=== PATIENT | female | born 1945 | race Caucasian/White ===

== ENCOUNTER 2021-09-20 10:00 | Outpatient (RCR) | payer MEDICARE, BC, SELFPAY | END 2021-11-14 16:18 | disposition home or self-care (01) | PROVIDERS: PCP Internal Medicine; Visit Provider Orthopaedic Surgery Sports Medicine | DX: M54.2 Cervicalgia (principal); R51.9 Headache, unspecified; Z51.89 Encounter for other specified aftercare; M70.71 Other bursitis of hip, right hip | CPT/HCPCS: 97110; 97140; 97161 ==

== ENCOUNTER 2021-11-22 15:15 | Outpatient (RCR) | payer MEDICARE, BC, SELFPAY ==
--- NOTE | 2021-11-14 17:10 | PT.OPE ---
PT [place] [facility] Start: 11/14/21 16:02 Freq: Status: Active Protocol: Document 11/14/21 17:05 CJT (Rec: 11/14/21 17:09 CJT [id number]) E-signed By aJk Mihcaud PT Physical Therapy Outpatient Evaluation Insurance Information Recert Due Date 01/09/22 Insurance Name Medicare B,Blue Cross/Blue [employer] Medical Diagnosis M70.61 - trochanteric bursitis , R hip M76.891 - other specified enthesopathies of R lower limb , excluding foot Treating Diagnosis M25.511 - R hip pain Referring Sahil Kimball MD Subjective Subjective Pt reports hip pain ongoing for many years now. Has pinpoint tenderness in lateral R hip that is made worse with getting up from the ground. Pt enjoys working in her yard and is now having trouble due to pain in her hip. Laying on R side makes pain worse as well. Pain is also located behind greater trochanter. Does have history of issues with her low back and isn't sure if this is related to her current pain. Rates pain as 5 /10 on average in R hip. Pain Comments 5/10 Date of Last Physician Visit 11/09/21 Current Work Status Retired Precautions Therapy Limitations/Systems Review Not Limited Objective Range of Motion R Hip ROM Flexion - 120 IR/ER - 37/11 Extension - 5 L Hip ROM Flexion - 120 IR/ER - 30/20 Extension - 5 R knee ROM - 0-125 L knee ROM - 0-125 Strength R Hip Strength Flexion - 4 Abduction - Adduction - 5 IR - 5 ER - 4 Extension - L Hip Strength Flexion - 4 Adduction - 5 IR - 5 ER - 5 Extension - DNT R knee Extension - 5 R Knee Flexion - 4+ L knee Extension - 5 L knee Flexion - 5 Palpation Pain with palpation to R glute med, glute min, piriformis, and ITB Other/Pertinent Objective FADIR positive on R for posterior hip pain JAYDEN positive B for anterior hip tightness Assessment Assessment/Impression Pt is a 76 year old female who presents with new complaint of R hip pain. Pain has been ongoing for many years now but pt is struggling to work in her yard and garden due to the pain. Pain is made worse when going from the ground to standing, sitting to standing, and laying on her R side. Pt rolls from side to side frequently during the night due to pain. Testing reveals deficits in R>L hip strength and ROM. Pt is also very tender with direct palpation to hip abductors and ERs, less tenderness noted over greater trochanter. Skilled PT services are medically necessary to address deficits and return patient to highest level of function. Recommend physical therapy sessions 2/ week for 6 weeks. Pt agrees with this plan. Printout of HEP was given for I completion and pt gives verbal understanding of each exercise . Primary Functional Limitations floor to stand transfers, sit to stand transfers, laying on R side, prolonged sitting Plan of Care Rehabilitation Potential Good Physical Therapy Goals STG - To be completed in 2-3 weeks: 1. Pt to report reduction in hip pain by factor of 2 so that she may lay on her R side while in bed and rest with manageable pain. 2. Pt will demo 5/5 MMT for all motions of B hips to provide better support to pelvis and lumbar spine. LTG - To be completed in 8 weeks: 1. Pt to be I with HEP so that they may I manage progression of symptoms. 2. Pt will report ability to sleep while laying on R side without waking due to hip pain so that she may wake well rested with reduced mental fatigue. 3. Pt will report ability to sit for 60+ minutes without onset of R hip pain so that she may sit at dinner table with family and friends. 4. Pt will report ability to kneel down and return to garden with max 2/10 pain in hip so that she may continue to work in her garden with manageable pain. Treatment Plan/Direct Interventions Electrical Stimulation,Heat, Joint Mobilization,Manual Therapy,Self-Care/Home Management,Therapeutic Exercises,Ultrasound Frequency/Duration 2/week for 6 weeks Patient Will Be Discharged From Therapy Completion of LTG(s),Skills Plateau,Independent w/HEP, Independently Progressing Evaluation Billing Untimed Code Treatment Minutes 44 PT Eval No Charge No Complexity Low Certification Information Initial Certification Date 11/14/21 Ending Certification Date 12/26/21 Provider Signature Shows Agreement With POC & Medical Necessity Physician Comment/Change Comment or Changes Physician NPI Number #
== END 2022-01-16 12:42 | disposition home or self-care (01) ==
PROVIDERS: PCP Internal Medicine; Visit Provider Orthopaedic Surgery Sports Medicine
DX: M70.61 Trochanteric bursitis, right hip (principal); Z51.89 Encounter for other specified aftercare
CPT/HCPCS: 97035; 97110; 97140; 97161

== ENCOUNTER 2022-02-08 13:06 | Outpatient (CLI) | payer MEDICARE, BC, SELFPAY ==
--- NOTE | 2022-02-08 13:40 | CRLHL7_ITS ---
For Patients: As a result of the Cures Act, medical imaging exams and procedure reports are released immediately into your electronic medical record. You may view this report before your referring provider. If you have questions, please contact your health care provider. BILATERAL SCREENING MAMMOGRAM WITH COMPUTER-AIDED DETECTION AND TOMOSYNTHESIS TECHNIQUE: CC and MLO views were obtained. These mammographic images have been obtained using full-field digital technique. These mammographic images were interpreted with the benefit of computer-aided detection. Breast Tomosynthesis was used in this interpretation. COMPARISON FILM: 10/26/20, 09/09/19, 06/22/18. FINDINGS: There are scattered areas of fibroglandular density IMPRESSION: There is no radiographic evidence for malignancy. ASSESSMENT: BI-RADS Category 2: Benign RECOMMENDATION: Routine screening mammogram in 1 year. A lay language report of this examination will be provided to the patient. Loco Sanchez M.D. Diagnostic Radiologist [email or web address] Transcribed: 1:27 p.[email or web address] elizabeth/Dictated by: Loco Sanchez MD @ 02/11/2022 12:02:00 PM (Electronically Signed)
== END 2022-02-08 13:07 | disposition home or self-care (01) ==
LOC: MAMMO 13:07
PROVIDERS: PCP Internal Medicine; Visit Provider Internal Medicine
DX: Z12.31 Encounter for screening mammogram for malignant neoplasm of breast (principal)
CPT/HCPCS: 77063; 77067

== ENCOUNTER 2022-05-26 16:21 | Emergency (ER) | payer MEDICARE, BC, SELFPAY ==
[2022-05-26] VITALS (7 sets, daily range): BP systolic 143–160; BP diastolic 82–97; PULSE 72–87; RESP 18; TEMP 36.6; O2SAT 95–97; BMI 27.8
--- NOTE | 2022-05-26 16:54 | CRLHL7_ITS ---
For Patients: As a result of the Century Cures Act, medical imaging exams and procedure reports are released immediately into your electronic medical record. You may view this report before your referring provider. If you have questions, please contact your health care provider. HISTORY: Chest pain. COMPARISON: None available FINDINGS: A portable erect AP view of the chest was obtained at 1702 hours. The lungs are clear. No focal or diffuse infiltrates are present. The heart is top-normal in size. The mediastinum is normal in appearance. The osseous structures are normal in appearance for the patient`s age. IMPRESSION: Normal portable chest single view. Dictated by Sumeet Marmolejo MD @ 05/26/2022 5:43:38 PM (Electronically Signed)
--- NOTE | 2022-05-26 16:57 | ED_ITS ---
HPI - General Adult General Chief complaint: Nausea/Vomiting Stated complaint: Vomiting, sweating, heaviness in chest since AM Time Seen by Provider: 05/26/22 16:48 History of Present Illness HPI narrative: Patient is a 69 year white female who felt well going to [employer] to eat, ate some food and about 5-10 minutes later felt hot sweaty little bit nauseated vomited, and since then she has had some mild chest tightness, as well as some fatigue and nausea. She does not have any radiation of pain to her neck arm jaw, she was little diaphoretic and felt a little chilled as well. Her ate similar food in felt well. She has less stomach trouble now, but was concerned about chest tightness. She has not had any coronary artery disease, but there is family history of heart disease in her family. She has history of hypothyroidism as well as arthritis. Related Data Home Medications Medication Instructions Recorded Confirmed acetaminophen 325 mg tablet 325 - 650 mg PO DAILY PRN 09/03/21 03/27/22 (Tylenol) cetirizine 10 mg tablet 5 mg PO QDAY PRN 09/03/21 03/27/22 levothyroxine 75 mcg capsule 75 mcg PO QDAY 09/03/21 03/27/22 meclizine 25 mg chewable tablet 25 mg PO QDAY PRN 09/03/21 03/27/22 multivitamin 1 tab PO QAM 09/03/21 03/27/22 zinc 50 mg tablet 50 mg PO QDAY 09/03/21 03/27/22 cholecalciferol (vitamin D3) 25 25 mcg PO QDAY 11/09/21 03/27/22 mcg (1,000 unit) tablet (Vitamin D3) Allergies Allergy/AdvReac Type Severity Reaction Status Date / Time No Known Drug Allergies Allergy Verified 05/26/22 16:40 Review of Systems Status of ROS: Reports: 6 or more systems reviewed and unremarkable except as noted in History and below [facility] Medical History Cervical disc disease ?M50.90 - Cervical disc disorder, unspecified, unspecified cervical region (ICD-10) Chronic low back pain ?M54.50 - Low back pain, unspecified (ICD-10) ?G89.29 - Other chronic pain (ICD-10) Osteoarthritis ?M19.90 - Unspecified osteoarthritis, unspecified site (ICD-10) Right bundle branch block (~04/2010) ?I45.10 - Unspecified right bundle-branch block (ICD-10) Surgical History H/O hernia repair (~1979) ?Z98.890 - Other specified postprocedural states (ICD-10) ?Z87.19 - Personal history of other diseases of the digestive system (ICD-10) History of arthroplasty of finger of right hand (10/23/17) ?Z96.691 - Finger-joint replacement of right hand (ICD-10) Family History Mother Heart problem Arthritis Social History Smoking Status: Never smoker Do you use any of these nicotine containing products: None Second hand tobacco smoke exposure: No Exam Narrative: Exam Narrative: Objective: Vital signs are unremarkable and slightly hypertensive Alert or x3, noncyanotic, no apparent distress HEENT shows no facial asymmetry mouth is well hydrated neck is supple chest is clear no rales or wheezing Heart rhythm regular heart murmur Abdomen benign soft nontender Extremities are no edema neurologic nonfocal good peripheral perfusion noted Skin is warm and dry Const: Vital Signs, click to edit/add: Vital Signs - 24 hr 05/26/22 16:40 05/26/22 18:21 Temperature 98 F Pulse Rate 76 Pulse Rate [Pulse Oximeter] 87 Respiratory Rate 18 Blood Pressure [Ri ght Upper Arm] 160/82 H Pulse Oximetry 96 95 Oxygen Delivery Me thod Room Air Course Vital Signs Vital signs: Initial Vital Signs Temperature 98 F 05/26/22 16:40 Temperature Source Oral 05/26/22 16:40 Pulse Rate 87 05/26/22 16:40 Respiratory Rate 18 05/26/22 16:40 Blood Pressure 160/82 H 05/26/22 16:40 Blood Pressure Mean 108 05/26/22 16:40 Pulse Oximetry 96 05/26/22 16:40 Oxygen Delivery Method Room Air 05/26/22 16:40 Vital Signs Temperature 98 F 05/26/22 16:40 Pulse Rate 87 05/26/22 16:40 Respiratory Rate 18 05/26/22 16:40 Blood Pressure 160/82 H 05/26/22 16:40 Pulse Oximetry 96 05/26/22 16:40 Oxygen Delivery Method Room Air 05/26/22 16:40 Temperature 98 F 05/26/22 16:40 Pulse Rate 76 05/26/22 18:21 Respiratory Rate 18 05/26/22 16:40 Blood Pressure 160/82 H 05/26/22 16:40 Pulse Oximetry 95 05/26/22 18:21 Oxygen Delivery Method Room Air 05/26/22 16:40 Medical Decision Making MDM Narrative Medical decision making narrative: Patient is a 77-year-old female without history of heart disease who does apparently have a right bundle wilber block by reviewing her chart. She felt after eating about 5-10 minutes some nausea vomiting chills slight weakness. Since then she has had some chest tightness. She is concerned about this. And was coming to the emergency department. Her symptoms were at 7:30 a.m. this morning. She is here now at about 5:00 p.m.. I think at this point would be appropriate to get an EKG, cardiac monitoring, give her aspirin, IV fluid, 0.5 of Ativan IV to see if it will help her nausea. Insert I think ruling out acute coronary syndrome appropriate as well as she may have a component of mild anxiety from the issue this morning. Disposition pending findings above, will check labs including point of care troponin and other studies. Disposition pending their findings Addendum: The patient's EKG shows right bundle branch block consistent with prior EKG she has some artifact present 2 I do not see any obvious ST elevation or depression T-waves appear to be normal. She has a chest x-ray that looks unremarkable by my read. Her laboratory studies show negative troponin. Her white count and hemoglobin are normal, ER profile is unremarkable, CRP is negative, proBNP is normal, SARs/influenza/RSV are negative. She feels markedly better after the fluids and the Ativan she has no further nausea. I think at this point her only complaint is she feels fatigued from today's activities I think she would have had an abnormal troponin sinc she had onset of symptoms at 7:30 a.m. this morning and had her labs done about 5. I think I would recommend light activity, follow-up Dr. Cornejo in this week. Return to ED sooner problems or concerns recommend light activity. She and her are comfortable plan will follow up as directed thanks , but also recommend she take an aspirin daily Lab Data Labs: Lab Results 05/26/22 05/26/22 05/26/22 Range/Units 16:55 17:15 17:40 WBC 9.38 (4.50-11.00) K/uL RBC 5.15 (4.00-5.20) m/uL Hgb 15.0 (12.0-16.0) gm/dL Hct 45.1 (33.0-51.0) % MCV 88 (80-100) fL MCH 29 (26-34) pg MCHC 33 (32-36) gm/dL RDW Coeff of Dominique 12.8 (11.5-15.5) % Plt Count 284 (140-440) K/uL Neut % (Auto) 72.8 H (42.0-72.0) % Lymph % (Auto) 20.4 (20-44) % Ellis % (Auto) 5.9 (0.0-11.0) % Eos % (Auto) 0.4 (0.0-7.0) % Baso % (Auto) 0.2 (0.0-3.0) % Neut # (Auto) 6.80 (1.7-7.0) K/uL Lymph # (Auto) 1.91 (0.90-2.90) K/uL Ellis # (Auto) 0.60 (0.00-0.90) K/UL Eos # (Auto) 0.04 (0.00-0.50) K/uL Baso # (Auto) 0.02 (0.00-0.30) K/uL Sodium 139 (135-149) mmol/L Potassium 3.9 (3.6-5.1) mmol/L Chloride 106 (96-114) mmol/L Carbon Dioxide 26 (20-32) mmol/L BUN 21 (7-30) mg/dL Creatinine 0.7 (0.5-1.5) mg/dL Estimated Creat Clear 40.04 Estimated GFR 88 ml/min Glucose 91 (60-115) mg/dL Calcium 9.0 (8.4-10.6) mg/dL Total Bilirubin 0.5 (0.1-1.5) mg/dL Direct Bilirubin 0.3 (0.0-0.5) mg/dL AST 28 (12-35) U/L ALT 27 (4-35) U/L Alkaline Phosphatase 95 (40-150) U/L C-Reactive Protein 0.9 (0.5-1.0) mg/dL NT-Pro-B Natriuret Pep 289 pg/mL Total Protein 7.3 (6.0-8.3) g/dL Albumin 4.2 (3.3-5.0) g/dL Amylase 60 (18-89) U/L Lipase 82 (23-300) U/L SARS-CoV-2 (PCR) Negative SARS-CoV-2 (Negative) Influenza Type A (PCR) Negative PCR FLU A (Negative) Influenza Type B (PCR) Negative PCR FLU B (Negative) RSV (PCR) Negative PCR RSV (Negative) POC Troponin I 0.00 L (0.01-0.04) ng/ml Discharge Plan Discharge Clinical Impression: Chest pain, Vomiting Patient Disposition: Home w/ Parent or Adult Condition: Improved Additional Instructions: Light activity, rest, Tylenol as needed, continue same medications at home, recheck with Dr. Cornejo in the next few days for follow-up., aspirin daily 325 mg. Return to ED sooner problems concerns concerns difficulty. Activity Level: Light activity Discharge Diet: Heart Healthy (2 gm sodium, low fat) Prescriptions: No Action levothyroxine 75 mcg capsule 75 mcg PO QDAY cetirizine 10 mg tablet 5 mg PO QDAY PRN meclizine 25 mg tablet,chewable 25 mg PO QDAY PRN acetaminophen [Tylenol] 325 mg tablet 325 - 650 mg PO DAILY PRN multivitamin Tablet 1 tab PO QAM zinc 50 mg tablet 50 mg PO QDAY cholecalciferol (vitamin D3) [Vitamin D3] 25 mcg (1,000 unit) tablet 25 mcg PO QDAY Follow Up/Referrals: Karuna Farfan MD [Primary Care Provider] - Stand Alone Forms: [facility] Info Instructions
[2022-05-26 17:39] LABS: Chloride* 106 mmol/L (96-114); Potassium* 3.9 mmol/L (3.6-5.1); Sodium* 139 mmol/L (135-149)
[2022-05-26 17:40] LABS: Albumin* 4.2 g/dL (3.3-5.0)
[2022-05-26 17:42] LABS: Amylase* 60 U/L (18-89); Blood Urea Nitrogen* 21 mg/dL (7-30); Carbon Dioxide* 26 mmol/L (20-32); Creatinine* 0.7 mg/dL (0.5-1.5); Est. Creatinine Clearance* 40.04; Estimated Glomerular Filt Rate 88 ml/min; Glucose* 91 mg/dL (60-115)
[2022-05-26 17:43] LABS: Bilirubin Direct* 0.3 mg/dL (0.0-0.5); Bilirubin Total* 0.5 mg/dL (0.1-1.5)
[2022-05-26 17:44] LABS: Alanine Aminotransferase* 27 U/L (4-35); Alkaline Phosphatase* 95 U/L (40-150); Aspartate Amino Transferase* 28 U/L (12-35); Lipase* 82 U/L (23-300); Total Protein* 7.3 g/dL (6.0-8.3)
[2022-05-26 17:46] LABS: C Reactive Protein* 0.9 mg/dL (0.5-1.0)
[2022-05-26 17:53] LABS: NT Pro B Type NatriureticPept* 289 pg/mL
[2022-05-26] MEDS: LORazepam 2 MG/ML inj 0.5 MG IVP (18:01)
[2022-05-26] MEDS: ASPIRIN 81 MG TAB.CHEW 324 MG PO (18:01)
[2022-05-26] MEDS: 0.9 % SODIUM CHLORIDE 500 ML 500 ML IV (18:02)
[2022-05-26 18:25] LABS: PCR FLU A Negative PCR FLU A (Negative); PCR FLU B Negative PCR FLU B (Negative); PCR RSV Negative PCR RSV (Negative)
[2022-05-26 18:28] LABS: Basophils Absolute Auto 0.02 K/uL (0.00-0.30); Basophils Percent Auto 0.2 % (0.0-3.0); Eosinophils Absolute Auto 0.04 K/uL (0.00-0.50); Eosinophils Percent Auto 0.4 % (0.0-7.0); Hematocrit 45.1 % (33.0-51.0); Immature Granulocytes Abs Auto 0.03 K/uL (0.00-0.30); Immature Granulocytes Pct Auto 0.3 %; Lymphocytes Absolute Auto 1.91 K/uL (0.90-2.90); Lymphocytes Percent Auto 20.4 % (20-44); Mean Corpuscular HGB Conc 33 gm/dL (32-36); Mean Corpuscular Hemoglobin 29 pg (26-34); Mean Corpuscular Volume 88 fL (80-100); Monocytes Percent Auto 5.9 % (0.0-11.0); Neutrophils Percent Auto 72.8 % (42.0-72.0); Platelet Count* 284 K/uL (140-440); RDW Coefficient of Variation % 12.8 % (11.5-15.5); Red Blood Count 5.15 m/uL (4.00-5.20); White Blood Count* 9.38 K/uL (4.50-11.00)
[2022-05-26 18:31] LABS: SARS PCR* Negative SARS-CoV-2 (Negative)
[2022-05-26 18:32] LABS: Slide Review Reflex No
== END 2022-05-26 19:11 | disposition home or self-care (01) ==
PROVIDERS: Emergency Provider Family Medicine; PCP Internal Medicine
DX: R07.9 Chest pain, unspecified (principal); R11.10 Vomiting, unspecified
CPT/HCPCS: 36415; 71045; 80048; 80076; 82150; 83690; 83880; 84484; 85025; 86140; 87502; 87634; 87635; 93005; 94761; 96374; 99284; 99285; A9270; J2060; J7120

== ENCOUNTER 2022-06-03 09:21 | Outpatient (CLI) | payer MEDICARE, BC, SELFPAY | END 2022-06-03 09:22 | disposition home or self-care (01) | PROVIDERS: PCP Internal Medicine; Visit Provider Internal Medicine | DX: E03.9 Hypothyroidism, unspecified (principal); R53.82 Chronic fatigue, unspecified | CPT/HCPCS: 84443 ==

== ENCOUNTER 2022-10-04 08:40 | Outpatient (CLI) | payer MEDICARE, BC, SELFPAY | END 2022-10-04 08:41 | disposition home or self-care (01) | LOC: NFLDREF 10-05 09:59 | PROVIDERS: PCP Internal Medicine; Referring Provider Internal Medicine; Visit Provider Internal Medicine | DX: E03.9 Hypothyroidism, unspecified (principal) | CPT/HCPCS: 84443 ==

== ENCOUNTER 2023-10-09 07:27 | Outpatient (CLI) | payer MEDICARE, BC, SELFPAY | END 2023-10-09 07:28 | disposition home or self-care (01) | LOC: NFLDREF 10-10 10:33 | PROVIDERS: PCP Internal Medicine; Referring Provider Internal Medicine; Visit Provider Internal Medicine | DX: E03.9 Hypothyroidism, unspecified (principal) | CPT/HCPCS: 84443 ==

== ENCOUNTER 2024-03-16 12:35 | Outpatient (CLI) | payer MEDICARE, BC, SELFPAY ==
--- NOTE | 2024-03-16 13:00 | CRLHL7_ITS ---
For Patients: As a result of the Century Cures Act, medical imaging exams and procedure reports are released immediately into your electronic medical record. You may view this report before your referring provider. If you have questions, please contact your health care provider. BILATERAL SCREENING MAMMOGRAM WITH COMPUTER-AIDED DETECTION AND TOMOSYNTHESIS TECHNIQUE: CC and MLO views were obtained. These mammographic images have been obtained using full-field digital technique. These mammographic images were interpreted with the benefit of computer-aided detection. Breast Tomosynthesis was used in this interpretation. COMPARISON FILM: 02/08/22, 10/26/20, 09/09/19. FINDINGS: There are scattered areas of fibroglandular density. IMPRESSION: There is no radiographic evidence for malignancy. ASSESSMENT: BI-RADS Category 2: Benign RECOMMENDATION: Routine screening mammogram in 1 year. A lay language report of this examination will be provided to the patient. Aram Puenet M.D. Diagnostic/Nuclear Medicine Radiologist [email or web address] MARIE/syd SP/Dictated by: Aram Puente MD @ 03/18/2024 9:15:00 AM (Electronically Signed)
== END 2024-03-16 12:36 | disposition home or self-care (01) ==
LOC: MAMMO 12:36
PROVIDERS: PCP Internal Medicine; Visit Provider Internal Medicine
DX: Z12.31 Encounter for screening mammogram for malignant neoplasm of breast (principal)
CPT/HCPCS: 77063; 77067

== ENCOUNTER 2024-05-05 15:05 | Outpatient (CLI) | payer MEDICARE, BC, SELFPAY ==
--- NOTE | 2024-05-05 15:30 | CRLHL7_ITS ---
For Patients: As a result of the Century Cures Act, medical imaging exams and procedure reports are released immediately into your electronic medical record. You may view this report before your referring provider. If you have questions, please contact your health care provider. INDICATION: Low back pain. COMPARISON: 10/22/2019. Technique Sagittal T1, T2, and STIR sequences. Axial T1 and T2 weighted sequences. FINDINGS: Grade 1 anterolisthesis of L4 on L5 and L5 on S1 measures approximately 4-5 mm. Otherwise, normal alignment. No fractures. No vertebral body loss of height. No ligamentous injury. No suspicious osseous lesions. Normal conus terminates at L1. T12-L1 L1-2: Disc degeneration posterior disc bulging. No spinal canal or neural foraminal narrowing. L2-3: Disc degeneration and posterior disc bulge. No narrowing of spinal canal. No neural foraminal narrowing. L3-4: Posterior disc bulge. No spinal canal neural foraminal narrowing. L4-5: Grade 1 anterolisthesis. Unroofed posterior disc bulge. Moderate narrowing of spinal canal. No neural foraminal narrowing. Mild facet arthropathy. L5-S1: Grade 1 anterolisthesis. Posterior disc bulge. No narrowing of spinal canal. Oblique orientation bilateral foramina. No narrowing. Moderate facet arthropathy. Normal visualized SI joints. IMPRESSION: 1. Grade 1 anterolisthesis of L4 on L5 and L5 on S1. Otherwise normal alignment. No fractures 2. Lumbar spondylosis 3. At L4-5, posterior disc bulge. Moderate narrowing of the spinal canal. 4. No spinal canal or neural foraminal narrowing at the remaining levels Dictated by Ta Koroma MD @ 05/06/2024 2:08:48 PM (Electronically Signed)
== END 2024-05-05 15:06 | disposition home or self-care (01) ==
LOC: MRI 15:06
PROVIDERS: PCP Internal Medicine; Visit Provider Family Medicine
DX: M54.41 Lumbago with sciatica, right side (principal); M47.896 Other spondylosis, lumbar region; M51.26 Other intervertebral disc displacement, lumbar region; M43.16 Spondylolisthesis, lumbar region; M54.16 Radiculopathy, lumbar region
CPT/HCPCS: 72148

== ENCOUNTER 2024-05-18 08:30 | Emergency (ER) | payer MEDICARE, BC, SELFPAY ==
[2024-05-18] VITALS (22 sets, daily range): BP systolic 89–113; BP diastolic 64–75; PULSE 63–135; RESP 7–77; TEMP 36; O2SAT 94–97; BMI 27.8
--- OUTSIDE RECORDS SUMMARY | 2024-05-18 08:32 | XMS_ITS | Clinical Summary ---
Author Organization [facility] Address [address] [place] [id number] Care Team Providers Care Tack Driller Name Role Phone Randall Koo MD Primary Care Provider + [phone] Allergies No known active allergies Encounters Date Type Department Care Team Description 05/10/2024 Telephone [facility] [address] [place] [address] Brenton Skinner MD Appointment Request 05/10/2024 Transcribe Orders [facility] [address] [place] [address] Kole Foss MD 2024 Transcribe Orders [facility] [address] [place] [address] Kole Foss MD from Last 3 Months Social History Tobacco Use Types Packs/Day Years Used Date Smoking Tobacco: Never Assessed Comments Unknown Sex and Gender Information Value Date Recorded Sex Assigned at Not on file Legal Sex Female 5:49 AM [employer] Gender Identity Not on file Sexual Orientation Not on file Obstetrics History Last Filed Vital Signs Vital Sign Reading Time Taken Comments Blood Pressure 97/56 03/09/2008 8:20 AM [employer] Pulse 55 03/09/2008 8:20 AM [employer] Temperature - - Respiratory Rate - - Oxygen Saturation 99% 03/09/2008 8:20 AM [employer] Inhaled Oxygen Concentration - - Weight - - Height - - Body Mass Index - - Plan of Treatment Health Maintenance Due Date Last Done Comments Tdap 05/10/1956 Depression screening for age 12+ 1956 BMI (ht and wt on same day) for age 18+ 1962 Tetanus booster 1964 Pneumococcal series for age 50+ (1 of 1 - PCV) 1994 Zoster (shingles) series for age 50+ (1 of 2) 1994 DEXA/DXA scan for age 65+ 2009 Medicare Wellness for age 65+ 2009 RSV vaccine for adults or (1 - 1-dose 75+ series) 05/10/2019 Influenza Vaccine (#1) 2023 COVID-19 vaccine series (2023- season) 2024 12/03/2023, 12/14/2020, 04/29/2020, Additional history exists Insurance MEDICARE PART B HB ONLY BLUE CROSS [place] BLUE HB ONLY MEDICARE PB ONLY Care Teams Tack Driller Relationship Specialty Start Date End Date Randall Koo MD PCP - General 12/24/07
[2024-05-18 08:55] LABS: Troponin, Point-of-Care* 0.02 ng/ml (0.01-0.04)
--- NOTE | 2024-05-18 08:56 | ED.ARRPALP ---
HPI - Arrhythmia/Palpitations General Date Seen: 05/18/24 Chief Complaint: Arrhythmia/Palpitations Stated Complaint: Arrhythmia Time Seen by Provider: 05/18/24 08:37 Source: patient Mode of arrival: ambulatory Limitations: no limitations History of Present Illness HPI narrative: Patient is an 79-year-old female with history of hypothyroidism presenting to the emergency department for new onset AFib. She states she was going to get a injection in her back when the noticed her heart rate seemed to be fast. EKG was done showing she was in new onset AFib. Her provider then spoke to me and sent her to our emergency department. She is not on a blood thinner and has never had AFib before but she does state all of her sisters have AFib. Started noticing some chest discomfort yesterday while at rest that has persisted into today. She states she has had the same symptoms multiple times before but usually they are with exertion. She states lay typically go way when she is back at rest. Denies any lightheadedness. Does have chronic intermittent vertigo but has not noticed any worsening of the symptoms. Denies fevers, chills, shortness of breath, abdominal pain, nausea, vomiting. States she is feeling very anxious about getting this back injection since she was told she would need it. Other than that does not feel any different than normally. Has not noticed her heart racing. Related Data Home Medications ?Medication ?Instructions ?Recorded ?Confirmed acetaminophen 325 mg tablet 325 - 650 mg PO DAILY PRN 09/03/21 04/26/24 (Tylenol) cetirizine 10 mg tablet 5 mg PO QDAY PRN 09/03/21 04/26/24 multivitamin 1 tab PO QAM 09/03/21 04/26/24 omeprazole 20 mg capsule,delayed 20 mg PO QAM PRN 07/18/22 04/26/24 release latanoprost 0.005 % eye drops 1 drp ophthalmic (eye) QPM 10/23/22 04/26/24 ibuprofen 200 mg capsule 200 mg PO Q6H PRN 04/22/23 04/26/24 Previous Rx's ?Medication ?Instructions ?Recorded levothyroxine 75 mcg tablet 75 mcg PO DAILY #90 tabs 10/13/23 diazepam 5 mg tablet (Valium) 5 mg PO ONCE PRN anxiety #2 tabs 03/20/25 apixaban 5 mg tablet 5 mg PO BID #60 tabs 05/18/24 diltiazem HCl 30 mg tablet 30 mg PO TID 2 weeks #42 tabs 05/18/24 Allergies Allergy/AdvReac Type Severity Reaction Status Date / Time cortisone Allergy Intermediate Redness of Uncoded 04/26/24 14:50 Skin seasonal Allergy Mild Congested Uncoded 04/26/24 14:50 Review of Systems Status of ROS: Reports: 10 or more systems reviewed and unremarkable except as noted in History and below PFSH PFS Surgical History History of inguinal hernia repair (1982) ?Z98.890 - Other specified postprocedural states (ICD-10) ?Z87.19 - Personal history of other diseases of the digestive system (ICD-10) History of arthroplasty of finger of right hand (10/23/17) ?Z96.691 - Finger-joint replacement of right hand (ICD-10) Family History Mother Heart problem Arthritis Social History What is your current living situation?: I presently have a place to live Problems where you live: no known problems and declined to answer In the past 12 months, utilities in danger of being shut off: no In past 12 months, lack of transportation kept you from medical appts, meetings, work, or getting things needed for daily living: no In the past 12 mos, have been you worried that your food would run out before you had money to buy more?: never true In the past 12 mos, the food you bought just didn't last and you didn't have money to buy more?: never true Smoking Status: Never smoker Do you use any of these nicotine containing products: None Second hand tobacco smoke exposure: No How often do you have a drink containing alcohol: never AUDIT-C Alcohol total score: 0 Non-prescribed substance use: denies use How often does anyone, including family, friends and others, physically hurt you: never How often does anyone, including family, friends and others, insult or talk down to you: never How often does anyone, including family, friends and others, threaten you with harm: never How often does anyone, including family, friends and others, scream or curse at you: never Exam Narrative: Exam Narrative: Const: Well-nourished, Well-developed, in no distress Eyes: PERRL, no conjunctival injection, and symmetrical lids HENT: Atraumatic external nose and ears. Moist mucous membranes. Neck: Symmetric, trachea midline, No thyromegaly. CVS: Irregular irregular rhythm, No murmurs or gallops. Peripheral pulses 2+ and equal in all extremities RESP: Unlabored respiratory effort. Clear to auscultation bilaterally. GI: Nontender/Nondistended, No rebound or guarding. MSK:Extremities w/o deformity, Normal Active ROM Skin: Warm, Dry. No rashes or lesions. Neuro: Normal Muscle tone, No focal neurological deficits. Psych: Awake, Alert, & Oriented x3. Appropriate mood and affect. Const: Vital Signs, click to edit/add: Vital Signs - 24 hr 05/18/24 08:38 05/18/24 08:39 05/18/24 08:39 Temperature 96.8 F L Pulse Rate Pulse Rate [Apical ] 135 H Respiratory Rate 16 16 14 Blood Pressure Blood Pressure [Ri ght Upper Arm] 113/67 Pulse Oximetry 95 96 Oxygen Delivery Me thod Room Air 05/18/24 08:43 05/18/24 08:44 05/18/24 08:45 Temperature Pulse Rate Pulse Rate [Apical ] Respiratory Rate 14 7 L 14 Blood Pressure Blood Pressure [Ri ght Upper Arm] Pulse Oximetry 96 94 95 Oxygen Delivery Me thod 05/18/24 09:00 05/18/24 09:01 05/18/24 09:02 Temperature Pulse Rate Pulse Rate [Apical ] Respiratory Rate 21 18 25 H Blood Pressure Blood Pressure [Ri ght Upper Arm] Pulse Oximetry 94 95 96 Oxygen Delivery Me thod 05/18/24 09:15 05/18/24 09:30 05/18/24 09:31 Temperature Pulse Rate 135 H 105 H 104 H Pulse Rate [Apical ] Respiratory Rate 17 18 22 Blood Pressure 104/75 Blood Pressure [Ri ght Upper Arm] Pulse Oximetry 95 94 97 Oxygen Delivery Me thod 05/18/24 09:31 05/18/24 09:31 05/18/24 09:31 Temperature Pulse Rate 104 H 104 H 104 H Pulse Rate [Apical ] Respiratory Rate 22 22 22 Blood Pressure 104/75 104/75 104/75 Blood Pressure [Ri ght Upper Arm] Pulse Oximetry 97 97 97 Oxygen Delivery Me thod 05/18/24 09:45 05/18/24 10:00 05/18/24 10:01 Temperature Pulse Rate 88 99 Pulse Rate [Apical ] Respiratory Rate 22 16 21 Blood Pressure 105/73 Blood Pressure [Ri ght Upper Arm] Pulse Oximetry 95 97 Oxygen Delivery Me thod 05/18/24 10:15 05/18/24 10:33 05/18/24 10:45 Temperature Pulse Rate 63 79 Pulse Rate [Apical ] Respiratory Rate 21 46 H 35 H Blood Pressure Blood Pressure [Ri ght Upper Arm] Pulse Oximetry 95 96 Oxygen Delivery Me thod 05/18/24 11:00 05/18/24 11:02 05/18/24 11:03 Temperature Pulse Rate 71 78 73 Pulse Rate [Apical ] Respiratory Rate 77 H 49 H 31 H Blood Pressure 89/69 L Blood Pressure [Ri ght Upper Arm] Pulse Oximetry 96 95 95 Oxygen Delivery Me thod 05/18/24 11:15 Temperature Pulse Rate 63 Pulse Rate [Apical ] Respiratory Rate 15 Blood Pressure Blood Pressure [Ri ght Upper Arm] Pulse Oximetry 96 Oxygen Delivery Me thod Course Vital Signs Vital signs: Initial Vital Signs Respiratory Rate 16 05/18/24 08:38 Pulse Oximetry 95 05/18/24 08:38 Vital Signs Respiratory Rate 16 05/18/24 08:38 Pulse Oximetry 95 05/18/24 08:38 Temperature 96.8 F L 05/18/24 08:39 Pulse Rate 63 05/18/24 11:15 Respiratory Rate 15 05/18/24 11:15 Blood Pressure 89/69 L 05/18/24 11:02 Pulse Oximetry 96 05/18/24 11:15 Oxygen Delivery Method Room Air 05/18/24 08:39 Medications Administered Medications: Discontinued Medications Generic Name Dose Route Start Last Admin Trade Name Freq PRN Reason Stop Dose Admin Diltiazem HCl 18 mg 05/18/24 09:44 05/18/24 09:57 Diltiazem 5 Mg/Ml Inj IVP 05/18/24 09:45 18 mg ONCE ONE Administration Sodium Chloride 1,000 mls @ 1,000 mls/hr 05/18/24 09:00 05/18/24 10:19 0.9 % Sodium Chloride 1000 Ml IV 05/18/24 09:59 Infused .Q1H ADITHYA Infusion Magnesium Oxide 400 mg 05/18/24 09:36 05/18/24 09:48 Magnesium Oxide 400 Mg Tablet PO 05/18/24 09:37 400 mg ONCE ONE Administration MDM - Arrhythmia/Palpitations MDM Narrative Medical decision making narrative: Patient is an 79-year-old female presenting for new onset AFib. Will check her TSH and T4 to see if her thyroid could be possibly causing his symptoms. Will also check magnesium and respirator electrolytes. EKG troponin COVID/flu/RSV all also ordered. A what seems like the AFib likely started last night when she started having the chest discomfort we cannot say for certain that it has been going on for less than 72 hours and she is not on a blood thinner. Due to this and the fact that she is otherwise stable I do believe it is in her best interest for us to try and treat this AFib with medication rather than a cardioversion. Lab work returned showing no concerning abnormalities. Her magnesium is very mildly low at 1.9. This is within normal limits but Cardiology usually recommends magnesium above 2.0. Due to this I will supplement her with magnesium. TSH within normal limits. Viral swabs are negative. Heart rate did come down some with the fluids but she was still having RVR so I ordered a dose of Cardizem 0.25 milligrams/kilogram for a total of 18 mg. After this her heart rate is sitting usually within the 60s to 70s and still in AFib. She was able to ambulate without issues and overall she is feeling well. We monitored the patient for an hour like this and heart rate did not change I do believe she is safe for discharge. I did speak to her primary care provider, Dr. Farfan, to get her opinion on outpatient management. The patient's [id number] score was 3. Her recommendations at this time is the Eliquis and Cardizem immediate release 30 mg t.i.d. with close outpatient follow-up as the patient has had a couple lower blood pressures intermittently. Most recent on file was 89/69 but when I recheck did again after speaking to Dr. Farfan it was 111/64. Patient is still asymptomatic and will be discharged home. Lab Data Labs: Lab Results 05/18/24 05/18/24 05/18/24 Range/Units 08:35 08:54 08:57 WBC 6.74 (4.50-11.00) K/uL RBC 4.94 (4.00-5.20) m/uL Hgb 14.4 (12.0-16.0) gm/dL Hct 44.1 (33.0-51.0) % MCV 89 (80-100) fL MCH 29 (26-34) pg MCHC 33 (32-36) gm/dL RDW Coeff of Dominique 13.5 (11.5-15.5) % Plt Count 305 (140-440) K/uL Neut % (Auto) 70.9 (42.0-72.0) % Lymph % (Auto) 19.1 L (20-44) % Chambers % (Auto) 7.7 (0.0-11.0) % Eos % (Auto) 1.6 (0.0-7.0) % Baso % (Auto) 0.6 (0.0-3.0) % Neut # (Auto) 4.77 (1.7-7.0) K/uL Lymph # (Auto) 1.30 (0.90-2.90) K/uL Chambers # (Auto) 0.50 (0.00-0.90) K/UL Eos # (Auto) 0.11 (0.00-0.50) K/uL Baso # (Auto) 0.04 (0.00-0.30) K/uL Abs Immat Gran (auto) 0.01 (0.00-0.30) K/uL Imm/Tot Granulo (auto) 0.1 % Sodium 138 (135-149) mmol/L Potassium 3.9 (3.6-5.1) mmol/L Chloride 106 (96-114) mmol/L Carbon Dioxide 22 (20-32) mmol/L Anion Gap 10 (7-15) mEq/L BUN 23 (7-30) mg/dL Creatinine 0.9 (0.5-1.5) mg/dL Estimated Creat Clear 38.75 Estimated GFR 65 ml/min Glucose 104 (60-115) mg/dL Calcium 9.0 (8.4-10.6) mg/dL Magnesium 1.9 (1.5-2.6) mg/dL Troponin I 0.02 (0.01-0.04) ng/mL TSH 1.890 (0.270-4.200) uIU/mL SARS-CoV-2 (PCR) Negative SARS-CoV-2 (Negative) Influenza Type A (PCR) Negative PCR FLU A (Negative) Influenza Type B (PCR) Negative PCR FLU B (Negative) RSV (PCR) Negative PCR RSV (Negative) POC Troponin I 0.02 (0.01-0.04) ng/ml ECG Data Attestation: I personally reviewed and interpreted this ECG as follows: Prior ECG tracings: available for review Interpretation: Initial EKG at 08:16 shows AFib with RVR at a rate of 148 beats per minute, left axis deviation, right bundle branch block, bifascicular block, no ST or T-wave abnormalities. Previous EKGs on file do not show the AFib but did have the block Repeat EKG at 10:11 shows AFib with a rate of 63 beats per minute, left axis, right bundle-branch block, no ST or T-wave abnormalities. Discharge Plan Discharge Clinical Impression: A-fib Qualifiers: Atrial fibrillation type: unspecified Qualified Code(s): I48.91 - Unspecified atrial fibrillation Patient Disposition: Home, Self-Care Condition: Stable Instructions: A-fib (Atrial Fibrillation) (ED), Blood Thinners (ED) Additional Instructions: I will starting on Eliquis for your AFib. This increases her risk of bleeding and you should not take NSAIDs while on Eliquis. Will also start you on Cardizem immediate release tablets 3 times a day. If you get very lightheaded or pass out stop taking your Cardizem and return for re-evaluation. Call Dr. Farfan when you are able to to set up a follow-up appointment. Prescriptions: New apixaban 5 mg tablet 5 mg PO BID Qty: 60 0RF diltiazem HCl 30 mg tablet 30 mg PO TID 14 Days Qty: 42 1RF No Action levothyroxine 75 mcg tablet 75 mcg PO DAILY Qty: 90 3RF cetirizine 10 mg tablet 5 mg PO QDAY PRN acetaminophen [Tylenol] 325 mg tablet 325 - 650 mg PO DAILY PRN multivitamin Tablet 1 tab PO QAM omeprazole 20 mg capsule,delayed release(DR/EC) 20 mg PO QAM PRN latanoprost 0.005 % drops 1 drp ophthalmic (eye) QPM ibuprofen 200 mg capsule 200 mg PO Q6H PRN diazepam [Valium] 5 mg tablet 5 mg PO ONCE PRN (Reason: anxiety) Qty: 2 0RF Rx Instructions: take one tablet half hour prior to injection, may repeat x1 Follow Up/Referrals: Karuna Farfan MD [Primary Care Provider] - Stand Alone Forms: Healthcare IT Info Instructions
[2024-05-18 09:01] LABS: Basophils Absolute Auto 0.04 K/uL (0.00-0.30); Basophils Percent Auto 0.6 % (0.0-3.0); Eosinophils Absolute Auto 0.11 K/uL (0.00-0.50); Eosinophils Percent Auto 1.6 % (0.0-7.0); Hematocrit 44.1 % (33.0-51.0); Hemoglobin* 14.4 gm/dL (12.0-16.0); Immature Granulocytes Abs Auto 0.01 K/uL (0.00-0.30); Immature Granulocytes Pct Auto 0.1 %; Lymphocytes Percent Auto 19.1 % (20-44); Mean Corpuscular HGB Conc 33 gm/dL (32-36); Mean Corpuscular Hemoglobin 29 pg (26-34); Mean Corpuscular Volume 89 fL (80-100); Monocytes Percent Auto 7.7 % (0.0-11.0); Neutrophils Absolute Auto 4.77 K/uL (1.7-7.0); Neutrophils Percent Auto 70.9 % (42.0-72.0); Platelet Count* 305 K/uL (140-440); RDW Coefficient of Variation % 13.5 % (11.5-15.5); Red Blood Count 4.94 m/uL (4.00-5.20); White Blood Count* 6.74 K/uL (4.50-11.00)
[2024-05-18 09:03] LABS: Slide Review Reflex No
[2024-05-18] MEDS: 0.9 % SODIUM CHLORIDE 1000 ml 1,000 ML IV (09:03)
[2024-05-18 09:08] LABS: Chloride* 106 mmol/L (96-114)
[2024-05-18 09:09] LABS: Sodium* 138 mmol/L (135-149)
[2024-05-18 09:11] LABS: Blood Urea Nitrogen* 23 mg/dL (7-30); Creatinine* 0.9 mg/dL (0.5-1.5); Est. Creatinine Clearance* 38.75; Estimated Glomerular Filt Rate 65 ml/min
[2024-05-18 09:12] LABS: Anion Gap 10 mEq/L (7-15); Carbon Dioxide* 22 mmol/L (20-32); Glucose* 104 mg/dL (60-115)
--- OUTSIDE RECORDS SUMMARY | 2024-05-18 09:19 | XMS_ITS | Clinical Summary ---
Author Organization [facility] Address [facility] [place] [address] Care Team Providers Care Admissions Gate Attendant Name Role Phone Randall Koo MD Primary Care Provider + [phone] Allergies No known active allergies Medications No known medications Active Problems No known active problems Encounters Date Type Department Care Team Description 05/10/2024 Telephone [facility] [address] [place] [address] Brenton Skinner MD Appointment Request 05/10/2024 Transcribe Orders [facility] [address] [place] [address] Kole Foss MD 2024 Transcribe Orders [facility] [address] [place] [address] Kole Foss MD from Last 3 Months Social History Tobacco Use Types Packs/Day Years Used Date Smoking Tobacco: Never Assessed Comments Unknown Sex and Gender Information Value Date Recorded Sex Assigned at Not on file Legal Sex Female 5:49 AM ENGRAVER LETTER Gender Identity Not on file Sexual Orientation Not on file Obstetrics History Last Filed Vital Signs Vital Sign Reading Time Taken Comments Blood Pressure 97/56 03/09/2008 8:20 AM ENGRAVER LETTER Pulse 55 03/09/2008 8:20 AM ENGRAVER LETTER Temperature - - Respiratory Rate - - Oxygen Saturation 99% 03/09/2008 8:20 AM ENGRAVER LETTER Inhaled Oxygen Concentration - - Weight - [...] MEDICARE PART B HB ONLY [place] BLUE HB ONLY MEDICARE [place] ONLY Care Teams Admissions Gate Attendant Relationship Specialty Start Date End Date Randall Koo MD PCP - General 12/24/07
[2024-05-18 09:20] LABS: Magnesium* 1.9 mg/dL (1.5-2.6)
[2024-05-18 09:23] LABS: Potassium* 3.9 mmol/L (3.6-5.1)
[2024-05-18 09:30] LABS: Troponin I* 0.02 ng/mL (0.01-0.04)
[2024-05-18 09:43] LABS: PCR FLU A Negative PCR FLU A (Negative); PCR FLU B Negative PCR FLU B (Negative); PCR RSV Negative PCR RSV (Negative); SARS PCR* Negative SARS-CoV-2 (Negative)
[2024-05-18] MEDS: MAGNESIUM OXIDE 400 MG TABLET PO (09:48)
[2024-05-18] MEDS: dilTIAZem 5 MG/ML inj 18 MG IVP (09:57)
== END 2024-05-18 11:37 | disposition home or self-care (01) ==
PROVIDERS: Emergency Provider Student in an Organized Health Care Education/Training Program; PCP Internal Medicine
DX: I48.91 Unspecified atrial fibrillation (principal)
CPT/HCPCS: 36415; 80048; 83735; 84443; 84484; 85025; 87631; 93005; 99284; A9270; J7030

== ENCOUNTER 2024-05-19 02:46 | Outpatient (CLI) | payer MEDICARE, BC, SELFPAY | END 2024-05-19 02:47 | disposition home or self-care (01) | LOC: AMB 05-20 10:08 | PROVIDERS: PCP Internal Medicine; Visit Provider Family Medicine | DX: R07.9 Chest pain, unspecified (principal) | CPT/HCPCS: A0425; A0427 ==

== ENCOUNTER 2024-05-19 03:21 | Emergency (ER) | payer MEDICARE, BC, SELFPAY ==
[2024-05-19] VITALS (9 sets, daily range): BP systolic 107–131; BP diastolic 62–104; PULSE 77–124; RESP 16–41; TEMP 36.3; O2SAT 94–98; BMI 27.8
--- OUTSIDE RECORDS SUMMARY | 2024-05-19 03:24 | XMS_ITS | Clinical Summary ---
Author Organization [facility] Address [facility] [place] [address] Care Team Providers Care Retail Sales Merchandiser Development Name Role Phone Randall Koo MD Primary Care Provider + [phone] Allergies No known active allergies Medications No known medications Active Problems No known active problems Encounters Date Type Department Care Team Description 05/10/2024 Telephone [facility] [address] [place] [address] Brenton Skinner MD Appointment Request 05/10/2024 Transcribe Orders [facility] [address] [place] [address] Kole Foss MD 2024 Transcribe Orders [facility] [address] [place] [address] Kole Foss MD from Last 3 Months Social History Tobacco Use Types Packs/Day Years Used Date Smoking Tobacco: Never Assessed Comments Unknown Sex and Gender Information Value Date Recorded Sex Assigned at Not on file Legal Sex Female 5:49 AM FAN INSTALLER Gender Identity Not on file Sexual Orientation Not on file Obstetrics History Last Filed Vital Signs Vital Sign Reading Time Taken Comments Blood Pressure 97/56 03/09/2008 8:20 AM FAN INSTALLER Pulse 55 03/09/2008 8:20 AM FAN INSTALLER Temperature - - Respiratory Rate - - Oxygen Saturation 99% 03/09/2008 8:20 AM FAN INSTALLER Inhaled Oxygen Concentration - - Weight - [...] MEDICARE PART B HB ONLY [place] BLUE HB ONLY MEDICARE PB ONLY Care Teams Retail Sales Merchandiser Development Relationship Specialty Start Date End Date Randall Koo MD PCP - General 12/24/07
--- NOTE | 2024-05-19 03:28 | CRLHL7_ITS ---
For Patients: As a result of the Century Cures Act, medical imaging exams and procedure reports are released immediately into your electronic medical record. You may view this report before your referring provider. If you have questions, please contact your health care provider. Indication: Mid chest pain Technique: Single view of the chest Comparison: None Findings/Impression: Cardiomegaly and prominent vascular markings, could represent pulmonary edema. No organized consolidation appreciated. Dictated by Christopher Jain MD @ 05/19/2024 3:53:20 AM (Electronically Signed)
--- NOTE | 2024-05-19 03:33 | ED.GENADULT ---
HPI - General Adult General Chief complaint: Chest Pain Stated complaint: Chest Pain Time Seen by Provider: 05/19/24 03:25 History of Present Illness HPI narrative: pt woke up with chest pain this morning. pain rated 10/ 10. Pain is located to left shoulder. Per EMS, pt rhythm is a-fib. PT given 50 of fentanyl via IV , 20 gauge to left hand. Pt also complaint of shortness of breath. 79-year-old woman presenting to the emergency department via EMS and accompanied by her with intense As demonstratedmid chest pressure. Has radiated into her left shoulder area as well. This woke her from sleep. Was seen in this facility about 15 hours ago and diagnosed with atrial fibrillation with RVR. Right bundle branch block as well. This was 1st documented time of AFib although had been experiencing some chest pains before. Has been seen at this facility with suspected related dyspepsia, takes intermittent omeprazole, and her chest pains in the past she has also attributed to sometimes back pain. Had had some chest discomfort however over the last couple of days in than noting exertional chest discomfort. No cough or cold symptoms. No shortness of breath or lightheadedness. Did receive diltiazem in the emergency department with improved rate. Was discharged with prescriptions for diltiazem and Eliquis. Did receive Eliquis and magnesium as well in the emergency department. Was contacted by pharmacy noting that they did not have needed medication and so had not yet filled the diltiazem or Eliquis. As prescribed otherwise would have had a couple of doses yet yesterday. Was contacted by EMS en route with heart rate between 120-160 and with chest pain though with preserved mentation and blood pressure. Recommendations due to available medication were to treat pain. And the not to cardiovert also due to unknown duration of atrial fibrillation. Also initiated on fluid bolus. Was given 50 mcg of fentanyl Notes numerous family members with atrial fibrillation. Related Data Home Medications ?Medication ?Instructions ?Recorded ?Confirmed acetaminophen 325 mg tablet 325 - 650 mg PO DAILY PRN 09/03/21 04/26/24 (Tylenol) cetirizine 10 mg tablet 5 mg PO QDAY PRN 09/03/21 04/26/24 multivitamin 1 tab PO QAM 09/03/21 04/26/24 omeprazole 20 mg capsule,delayed 20 mg PO QAM PRN 07/18/22 04/26/24 release latanoprost 0.005 % eye drops 1 drp ophthalmic (eye) QPM 10/23/22 04/26/24 ibuprofen 200 mg capsule 200 mg PO Q6H PRN 04/22/23 04/26/24 Previous Rx's ?Medication ?Instructions ?Recorded levothyroxine 75 mcg tablet 75 mcg PO DAILY #90 tabs 10/13/23 diazepam 5 mg tablet (Valium) 5 mg PO ONCE PRN anxiety #2 tabs 05/13/24 apixaban 5 mg tablet 5 mg PO BID #60 tabs 05/18/24 diltiazem HCl 30 mg tablet 30 mg PO TID 2 weeks #42 tabs 05/18/24 Allergies Allergy/AdvReac Type Severity Reaction Status Date / Time cortisone Allergy Intermediate Redness of Uncoded 04/26/24 14:50 Skin seasonal Allergy Mild Congested Uncoded 04/26/24 14:50 Review of Systems Status of ROS: Reports: 6 or more systems reviewed and unremarkable except as noted in History and below PFSH PFS Surgical History History of inguinal hernia repair (1982) ?Z98.890 - Other specified postprocedural states (ICD-10) ?Z87.19 - Personal history of other diseases of the digestive system (ICD-10) History of arthroplasty of finger of right hand (10/23/17) ?Z96.691 - Finger-joint replacement of right hand (ICD-10) Family History Mother Heart problem Arthritis Social History What is your current living situation?: I presently have a place to live Problems where you live: no known problems and declined to answer In the past 12 months, utilities in danger of being shut off: no In past 12 months, lack of transportation kept you from medical appts, meetings, work, or getting things needed for daily living: no In the past 12 mos, have been you worried that your food would run out before you had money to buy more?: never true In the past 12 mos, the food you bought just didn't last and you didn't have money to buy more?: never true Smoking Status: Never smoker Do you use any of these nicotine containing products: None Second hand tobacco smoke exposure: No How often do you have a drink containing alcohol: never AUDIT-C Alcohol total score: 0 Non-prescribed substance use: denies use How often does anyone, including family, friends and others, physically hurt you: never How often does anyone, including family, friends and others, insult or talk down to you: never How often does anyone, including family, friends and others, threaten you with harm: never How often does anyone, including family, friends and others, scream or curse at you: never Exam Narrative: Exam Narrative: Pleasant. Appears uncomfortable. Catching her breath a little in apparent discomfort. Speaking fluidly, easily. Cranial nerves 2-12 intact. Skin is warm and dry. Extremities are well perfused without edema. Heart in elevated rate and irregularly irregular rhythm. Lungs appear clear. Abdomen is soft and nontender. Const: Vital Signs, click to edit/add: Vital Signs - 24 hr 05/19/24 03:29 05/19/24 03:41 05/19/24 03:45 Temperature 97.3 F L Pulse Rate 78 85 Pulse Rate [Left P ulse Oximeter] 120 H Respiratory Rate 20 22 21 Blood Pressure Blood Pressure [Le ft Upper Arm] 131/104 H Pulse Oximetry 98 95 94 Oxygen Delivery Me thod Room Air Room Air 05/19/24 04:13 05/19/24 04:34 05/19/24 05:01 Temperature Pulse Rate 77 89 98 Pulse Rate [Left P ulse Oximeter] Respiratory Rate 20 22 16 Blood Pressure 109/62 107/64 109/77 Blood Pressure [Le ft Upper Arm] Pulse Oximetry 96 95 95 Oxygen Delivery Me thod Room Air Room Air Room Air 05/19/24 06:01 05/19/24 06:02 05/19/24 06:15 Temperature Pulse Rate 115 H 98 124 H Pulse Rate [Left P ulse Oximeter] Respiratory Rate 16 41 H Blood Pressure 126/100 H Blood Pressure [Le ft Upper Arm] Pulse Oximetry 97 95 95 Oxygen Delivery Al thod Room Air Room Air Documenting provider has reviewed patient's vital signs: yes Course Vital Signs Vital signs: Initial Vital Signs Respiratory Effort Normal, Spontaneous, Non-Labored 05/19/24 03:28 Respiratory Depth Normal 05/19/24 03:28 Respiratory Pattern Normal 05/19/24 03:28 Vital Signs Temperature 97.3 F L 05/19/24 03:29 Pulse Rate 120 H 05/19/24 03:29 Respiratory Rate 20 05/19/24 03:29 Blood Pressure 131/104 H 05/19/24 03:29 Pulse Oximetry 98 05/19/24 03:29 Oxygen Delivery Method Room Air 05/19/24 03:29 Temperature 97.3 F L 05/19/24 03:29 Pulse Rate 124 H 05/19/24 06:15 Respiratory Rate 41 H 05/19/24 06:02 Blood Pressure 126/100 H 05/19/24 06:01 Pulse Oximetry 95 05/19/24 06:15 Oxygen Delivery Method Room Air 05/19/24 06:15 Medications Administered Medications: Discontinued Medications Generic Name Dose Route Start Last Admin Trade Name Freq PRN Reason Stop Dose Admin Apixaban 5 mg 05/19/24 06:04 05/19/24 06:21 Apixaban 5 Mg Tablet PO 05/19/24 06:05 5 mg ONCE ONE Administration Aspirin 324 mg 05/19/24 03:28 05/19/24 03:35 Aspirin 81 Mg Tab.Chew PO 05/19/24 03:29 324 mg ONCE ONE Administration Diltiazem HCl 15 mg 05/19/24 03:31 05/19/24 03:36 Diltiazem 5 Mg/Ml Inj IVP 05/19/24 03:32 15 mg ONCE ONE Administration Diltiazem HCl 30 mg 05/19/24 06:44 05/19/24 06:49 Diltiazem 30 Mg Tablet PO 05/19/24 06:45 30 mg ONCE ONE Administration Sodium Chloride 500 mls @ 500 mls/hr 05/19/24 03:28 05/19/24 04:01 0.9 % Sodium Chloride 500 Ml IV 05/19/24 04:27 Infused .Q1H ONE Infusion Lidocaine/Aluminum/Magnesium/Simeth 30 ml 05/19/24 04:22 05/19/24 04:31 Gi Cocktail (Visc Lido/Antacid) 30 Ml PO 05/19/24 04:23 30 ml ONCE ONE Administration Medical Decision Making MDM Narrative Medical decision making narrative: Meeting upon arrival in the emergency department in room 8. As noted appears to be uncomfortable. Placed on monitor. Looks to still be in atrial fibrillation. Unclear etiology to this pain though might be related to rate related ischemia but might be having primary cardiovascular ischemic event, and dissection, pneumothorax, pulmonary embolus, anxiety. Dyspepsia? Continuing with fluid bolus. Did tolerate diltiazem well prior. Will bolus this again. May well show evidence of ischemia in the labs and I would anticipate need to trend this. Aspirin. Chest x-ray one view independently reviewed by me looks to show some cardiomegaly. Vascular congestion? Uncontrolled AFib for longer period of time certainly could contribute. On reexamination pain seems to be little more substernal. Considering history, this might represent some dyspepsia esophageal tension/pain. POC troponin I is negative. Heart rate in 80s to 90s. Trial GI cocktail On reassessment notes most improvement with GI cocktail. Still with some discomfort but feels it is manageable. Pending troponin redraw at this point. Heart rate appears to be generally in the 80s Repeat troponin is negative. Intermittently will still have periods of labored in more rapid breathing. She does endorse some pleuritic nature to this substernal chest discomfort. Anticipating need for echocardiogram. I do not see indication otherwise of pericarditis in EKG. Discussing plan of outpatient versus inpatient management. Had initially proposed outpatient evaluation as appears improved and stable. She is emphasizing the exertional dyspnea she has been experiencing lately and that she is here and perhaps we could complete the workup. Perhaps it would be prudent to admit to continue this workup and monitor for stability of arrhythmia/rate control. As I am talking with her she is engaging in more rapid breathing and heart rate climbs up into the 130s still in atrial fibrillation for a while though does not appear to increase pain. Might benefit from 2 weeks of omeprazole. Pending call back hospitalist, she decides that is feeling well enough to go home. That outpatient evaluation be appropriate/acceptable. In this confirmation conversation heart rate begins climbing and she begins to have some labored breathing again but this appears to be transient. Not hypoxic. Dosed with morning dosing of diltiazem and Eliquis. See patient discharge plan for further discussion I have ordered an ultrasound of your heart. We will call you later this morning to try to schedule this. You can follow up with your excellent primary care provider for these results and recommendations for further care. Please return for marked increase in persistent chest discomfort/pain, increasing and persistent shortness of breath. I would consider taking that omeprazole that your primary care provider has prescribed, daily for 2 weeks. I have rewritten for the diltiazem that had been planned as a rate control medication for you as well as the Eliquis. The diltiazem may not be the medication that you will be on longer-term. The Eliquis, also known as apixaban, is your temporary blood thinner. You can take these prescriptions to whichever pharmacy may have them available. You received a dose of both of these here this morning Medical Records Medical records reviewed: Yes I reviewed the patient's medical records Lab Data Lab results reviewed: Yes I reviewed the patient's lab results Labs: Lab Results 05/19/24 05/19/24 Range/Units 03:50 05:35 Hgb 14.2 (12.0-16.0) gm/dL Sodium 143 (135-149) mmol/L Potassium 3.7 (3.6-5.1) mmol/L Chloride 109 (96-114) mmol/L Carbon Dioxide 27 (20-32) mmol/L Anion Gap 7 (7-15) mEq/L BUN 17 (7-30) mg/dL Creatinine 0.7 (0.5-1.5) mg/dL Estimated Creat Clear 38.75 Estimated GFR 87 ml/min Glucose 104 (60-115) mg/dL Calcium 8.5 (8.4-10.6) mg/dL Magnesium 1.9 (1.5-2.6) mg/dL Total Bilirubin 0.5 (0.1-1.5) mg/dL Direct Bilirubin 0.2 (0.0-0.5) mg/dL AST 29 (12-35) U/L ALT 22 (4-35) U/L Alkaline Phosphatase 76 (40-150) U/L Troponin I < 0.01 (0.01-0.04) ng/mL NT-Pro-B Natriuret Pep 4000 pg/mL Total Protein 6.4 (6.0-8.3) g/dL Albumin 3.7 (3.3-5.0) g/dL Lipase 61 (23-300) U/L POC Troponin I 0.01 0.01 (0.01-0.04) ng/ml ECG Data Attestation: I personally reviewed and interpreted this ECG as follows: (Atrial fibrillation with RVR. Rate of 113. Right bundle. Similar to prior.) Critical Care Time Critical Care Time Critical Care Time: Yes Attestation: The patient required my highest level preparedness to intervene emergently and I personally spent this critical care time directly and personally managing the patient. This critical care time included: Obtaining a history; Examining the patient; Pulse oximetry; Ordering and reviewing of studies; Arranging urgent treatment with development of a management plan; Evaluation of patients response to treatment; Frequent reassessment discussions with other providers. This critical care time was performed to assess and manage the high probability of imminent life-threatening deterioration that could result in multiorgan failure. It was exclusive of separate billable procedures and treating other patients and teaching time. Total Critical Care Time in Minutes: 45 Discharge Plan Discharge Clinical Impression: Atrial fibrillation with rapid ventricular response, Substernal chest pain Patient Disposition: Home w/ Parent or Adult Condition: Improved Additional Instructions: I have ordered an ultrasound of your heart. We will call you later this morning to try to schedule this. You can follow up with your excellent primary care provider for these results and recommendations for further care. Please return for marked increase in persistent chest discomfort/pain, increasing and persistent shortness of breath. I would consider taking that omeprazole that your primary care provider has prescribed, daily for 2 weeks. I have rewritten for the diltiazem that had been planned as a rate control medication for you as well as the Eliquis. The diltiazem may not be the medication that you will be on longer-term. The Eliquis, also known as apixaban, is your temporary blood thinner. You can take these prescriptions to whichever pharmacy may have them available. You received a dose of both of these here this morning Prescriptions: No Action levothyroxine 75 mcg tablet 75 mcg PO DAILY Qty: 90 3RF cetirizine 10 mg tablet 5 mg PO QDAY PRN acetaminophen [Tylenol] 325 mg tablet 325 - 650 mg PO DAILY PRN multivitamin Tablet 1 tab PO QAM omeprazole 20 mg capsule,delayed release(DR/EC) 20 mg PO QAM PRN latanoprost 0.005 % drops 1 drp ophthalmic (eye) QPM ibuprofen 200 mg capsule 200 mg PO Q6H PRN apixaban 5 mg tablet 5 mg PO BID Qty: 60 0RF diltiazem HCl 30 mg tablet 30 mg PO TID 14 Days Qty: 42 1RF diazepam [Valium] 5 mg tablet 5 mg PO ONCE PRN (Reason: anxiety) Qty: 2 0RF Rx Instructions: take one tablet half hour prior to injection, may repeat x1 Follow Up/Referrals: Karuna Farfan MD [Primary Care Provider] - Stand Alone Forms: [facility] Info Instructions
[2024-05-19] MEDS: ASPIRIN 81 MG TAB.CHEW 324 MG PO (03:35)
[2024-05-19] MEDS: 0.9 % SODIUM CHLORIDE 500 ML 500 ML IV (03:36)
[2024-05-19] MEDS: dilTIAZem 5 MG/ML inj 15 MG IVP (03:36)
[2024-05-19 03:56] LABS: Hemoglobin* 14.2 gm/dL (12.0-16.0)
--- OUTSIDE RECORDS SUMMARY | 2024-05-19 03:57 | XMS_ITS | Continuity of Care Document ---
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 Role Phone Kole Mccracken DO Unavailable Unavailable Medications Medication Instructions Dosage Effective Dates (start - stop) Status Comments meloxicam 15 mg tablet DENIED - Active DENIED, has no t been seen in 2 years, perhaps PCP will refill if not, she will need to contact our office and schedule appointment levothyroxine 75 mcg capsule take 1 capsule (75MCG) by oral route every day 75 MCG - Active fluticasone 50 mcg/actuation Disk Device for Inhalation inhale 1 puff (50MCG) by inhalation route 2 times every day as needed 50 MCG - Active citalopram 20 mg tablet 20mg daily in winter months - Active multivitamin capsule take 1 capsule by oral route every day - Active Calcium 600 + D(3) 600 mg (1,500 mg)-400 unit tablet take 1 Tablet by Oral route every day 1 Tablet - Active Vitamin D3 1,000 unit capsule take 1 by Oral route every morning 1 - Active GLUCOSAMINE-CHONDR OITIN (unknown strength) 1500mg daily Not Available - Active meloxicam 15 mg tablet take 1 tablet (15MG) by oral route every day 15 MG - No Longer Active Procedures Procedure Date Office/Outpatient Visit, New Prescription Generated Per ERX 13 Advance Directives Directive Yes / No Effective Date File Name No Information Encounters Encounter Description Practice Location Reason(s) For Visit Diagnoses Date Provider Providers Copied on Encounter [facility], [address], [place], [address], tel:[phone] [facility] , No Information 5 Nawaf Sharif. [facility] [address], [place], [address], [place]. tel:[phone] [facility], [address], [place], [address], [place] tel:[phone] [facility] , No Information 4 Nawaf Sharif. [facility] [address], [place], [address], [place]. tel:[phone] Office/Outpa tient Visit, New [facility], [address], [place], [address], [place] tel:[phone] [facility] , Joint Pain (chief complaint) Osteoarthros is, generalized, involving unspecified sitePain in joint involving multiple sites 3 Nawaf Sharif. [facility] [address], [place], [address], [place]. tel:[phone] Referring Provider: Kole Etienne, [facility] [address], [place], [address]. tel:[phone] Family History Family Member Type Diagnosis Age At Onset No Information Payers Payer name Insurance type Covered libertarian ID Authoriza timatthew(s) [facility] [id number] Social History Type Description Quantity Date Captured Comments Sex Female Smoking Status No Information Chief Complaint And Reason For Visit No Information Reason For Referral Reason For Referral No Information History Of Present Illness Encounter Date Complaint History Of Prese nt Illness No Information Functional Status Date Functional Assessmen t No Information Instructions Date Instruction Additional Infor mation No Information Assessments Type Assessment Date No Information Patient Care Teams Name Effective Dates (start - stop) Status Members No Information
--- OUTSIDE RECORDS SUMMARY | 2024-05-19 03:57 | XMS_ITS | Clinical Summary ---
Author Organization [facility] Address Counts include 234 beds at the [facility] [place] [address] Care Team Providers Care Technician Automated Equipment Name Role Phone Randall Koo MD Primary Care Provider + [phone] Allergies No known active allergies Medications No known medications Active Problems No known active problems Encounters Date Type Department Care Team Description 05/10/2024 Telephone [facility] [address] [place] [address] Brenton Skinner MD Appointment Request 05/10/2024 Transcribe Orders [facility] [address] [place] [address] Kole Foss MD 2024 Transcribe Orders [facility] [address] [place] [address] Kole Foss MD from Last 3 Months Social History Tobacco Use Types Packs/Day Years Used Date Smoking Tobacco: Never Assessed Comments Unknown Sex and Gender Information Value Date Recorded Sex Assigned at Not on file Legal Sex Female 5:49 AM DISTRIBUTION LEAD Gender Identity Not on file Sexual Orientation Not on file Obstetrics History Last Filed Vital Signs Vital Sign Reading Time Taken Comments Blood Pressure 97/56 03/09/2008 8:20 AM DISTRIBUTION LEAD Pulse 55 03/09/2008 8:20 AM DISTRIBUTION LEAD Temperature - - Respiratory Rate - - Oxygen Saturation 99% 03/09/2008 8:20 AM DISTRIBUTION LEAD Inhaled Oxygen Concentration - - Weight - [...] MEDICARE PART B HB ONLY [place] ONLY MEDICARE [place] ONLY Care Teams Technician Automated Equipment Relationship Specialty Start Date End Date Randall Koo MD PCP - General 12/24/07
--- NOTE | 2024-05-19 04:01 | ED.NURSE ---
pt assisted to restroom via wheelchair and die mechanic.
[2024-05-19 04:04] LABS: Troponin, Point-of-Care* 0.01 ng/ml (0.01-0.04)
[2024-05-19 04:08] LABS: Albumin* 3.7 g/dL (3.3-5.0); Chloride* 109 mmol/L (96-114)
[2024-05-19 04:09] LABS: Potassium* 3.7 mmol/L (3.6-5.1); Sodium* 143 mmol/L (135-149)
[2024-05-19 04:11] LABS: Alanine Aminotransferase* 22 U/L (4-35); Alkaline Phosphatase* 76 U/L (40-150); Anion Gap 7 mEq/L (7-15); Aspartate Amino Transferase* 29 U/L (12-35); Bilirubin Direct* 0.2 mg/dL (0.0-0.5); Bilirubin Total* 0.5 mg/dL (0.1-1.5); Blood Urea Nitrogen* 17 mg/dL (7-30); Calcium* 8.5 mg/dL (8.4-10.6); Carbon Dioxide* 27 mmol/L (20-32); Creatinine* 0.7 mg/dL (0.5-1.5); Est. Creatinine Clearance* 38.75; Estimated Glomerular Filt Rate 87 ml/min; Glucose* 104 mg/dL (60-115); Lipase* 61 U/L (23-300); Total Protein* 6.4 g/dL (6.0-8.3)
[2024-05-19 04:12] LABS: Magnesium* 1.9 mg/dL (1.5-2.6)
[2024-05-19 04:22] LABS: NT Pro B Type NatriureticPept* 4000 pg/mL
[2024-05-19 04:24] LABS: Troponin I* < 0.01 ng/mL (0.01-0.04)
[2024-05-19] MEDS: GI COCKTAIL (VISC LIDO/ANTACID) 30 ML PO (04:31)
[2024-05-19 05:44] LABS: Troponin, Point-of-Care* 0.01 ng/ml (0.01-0.04)
[2024-05-19] MEDS: APIXABAN 5 MG TABLET PO (06:21)
[2024-05-19] MEDS: dilTIAZem 30 MG TABLET PO (06:49)
== END 2024-05-19 07:16 | disposition home or self-care (01) ==
PROVIDERS: Emergency Provider Family Medicine; PCP Internal Medicine
DX: I48.91 Unspecified atrial fibrillation (principal); R07.89 Other chest pain
CPT/HCPCS: 36415; 71045; 80048; 80076; 83690; 83735; 83880; 84484; 85018; 99284; 99291; A9270; J7030

== ENCOUNTER 2024-06-07 09:47 | Outpatient (CLI) | payer MEDICARE, BC, SELFPAY | END 2024-06-07 09:48 | disposition home or self-care (01) | LOC: RAD 09:49 | PROVIDERS: PCP Internal Medicine; Visit Provider Internal Medicine | DX: I48.91 Unspecified atrial fibrillation (principal); I34.0 Nonrheumatic mitral (valve) insufficiency; I07.1 Rheumatic tricuspid insufficiency | CPT/HCPCS: 93306 ==

== ENCOUNTER 2024-07-12 06:59 | Inpatient (IN) | payer MEDICARE, BC, SELFPAY ==
[2024-07-12] VITALS (25 sets, daily range): BP systolic 85–142; BP diastolic 36–108; PULSE 74–132; RESP 3–30; TEMP 35.8–36.7; O2SAT 92–99; BMI 27.6
--- OUTSIDE RECORDS SUMMARY | 2024-07-12 07:01 | XMS_ITS | Clinical Summary ---
Author Organization [facility] Address [address] [place] [address] Care Team Providers Care Panel Sewer Name Role Phone Randall Koo MD Primary Care Provider Unava ilable Allergies No known active allergies Medications No known medications Active Problems No known active problems Encounters Date Type Department Care Team Description 06/07/2024 10:00 AM CDT Ancillary Procedure [facility] [address] [place] [address] 05/10/2024 Telephone [address] [place] [address] Brenton Skinner MD Appointment Request 05/10/2024 Transcribe Orders [address] [place] [address] Kole Foss MD 2024 Transcribe Orders [facility] [address] [place] [address] Kole Foss MD from Last 3 Months Social History Tobacco Use Types Packs/Day Years Used Date Smoking Tobacco: Never Assessed Comments Unknown Sex and Gender Information Value Date Recorded Sex Assigned at Not on file Legal Sex Female 5:49 AM 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 Gender Identity Not on file Sexual Orientation Not on file Obstetrics History Last Filed Vital Signs Vital Sign Reading Time Taken Comments Blood Pressure 97/56 03/09/2008 8:20 AM 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 Pulse 55 03/09/2008 8:20 AM 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 Temperature - - Respiratory Rate - - Oxygen Saturation 99% 03/09/2008 8:20 AM 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 Inhaled Oxygen Concentration - - Weight - [...] or (1 - 1-dose 75+ series) 05/10/2019 COVID-19 vaccine series ( season) 2024 12/03/2023, 12/14/2020, 04/29/2020, Additional history exists Influenza Vaccine (Season Ended) 2024 Procedures Procedure Name Priority Date/Time Associated Diagnosis Comments ECHO TTE COMPLETE WO CONTRAST Routine 06/07/2024 10:44 AM CDT Unspecified atrial fibrillation (HC) from Last 3 Months Results * ECHO TTE COMPLETE WO CONTRAST (06/07/2024 10:44 AM CDT) AORTIC VALVE MEAN PG 3 mmHg EJECTION FRACTION 62 % PEAK TR VELOCITY 3.3 m/s LVEDD 4.1 cm MITRAL VALVE MR ERO 17 mm2 EJECTION FRACTION 60 - 65% Anatomical Region Laterality Modality Ultrasound 06/07/2024 10:1 3 AM CDT Narrative 06/07/2024 11:12 AM CDT ECHOCARDIOGRAM SHARI WARE : 1945 79 years Study Date: 06/07/2024 10:13:04 AM Gender: F BP: 155/81 mmHg Height: 163.00 cm BSA: 1.80 m Weight: 74.00 kg Tech: [facility] Referring MD: KARUNA FARFAN Site: [facility] Reading Location: Mobile-OP Patient Location: Outpatient. Procedure: 2D, Color Doppler and Spectral Doppler. Indication for study: Afib Cardiac Rhythm: Regular and unknown.Study quality: Good. Final Impressions: 1. Normal LV size, normal wall thickness, normal global systolic function with an estimated EF of 60 - 65%. 2. Right ventricular cavity size is moderately enlarged, global systolic RV function is normal. 3. The mitral valve is normal, mild to moderate mitral regurgitation. 4. Tricuspid valve is normal, moderate tricuspid regurgitation. 5. Mildly increased estimated pulmonary pressures by tricuspid regurgitation velocity and right atrial pressure (43 mmHg plus RAP). Chamber Sizes and Function Normal left ventricular size, normal wall thickness, normal global systolic function with an estimated EF of 60 - 65%. No resting regional wall motion abnormality visualized. Left atrial size is normal. Left atrial pressure is normal. Right ventricular cavity size is moderately enlarged, global systolic RV function is normal. The right atrium is severely enlarged. Right atrial volume index is 62 ml/m . Right atrial area is 26 cm . The pulmonary artery is of normal size and origin. The sinus of Valsalva is normal sized. The ascending aorta is normal sized. Valves, RV Pressures and Diastolic Function The aortic valve is trileaflet, no stenosis and trivial regurgitation. The mitral valve is normal in structure, mild to moderate mitral regurgitation. Indeterminate pattern of LV diastolic filling. The tricuspid valve is normal in structure, moderate tricuspid regurgitation. The tricuspid regurgitant velocity is 3.3 m/s, the estimated right ventricular systolic pressure is 43 mmHg plus right atrial pressure. There is mildly increased estimated pulmonary pressure by tricuspid regurgitation velocity and right atrial pressure. The pulmonic valve is normal. Trace pulmonary regurgitation. Masses, Effusion, Shunts There is no pericardial effusion. The inferior vena cava is dilated, respiratory size variation not well visualized. No left to right shunting was detected by limited color flow Doppler interrogation of the interatrial septum. MEASUREMENTS AND CALCULATIONS 2-D Measurements and LV Function: LVID (d) 4.1 cm LV FS% (2D) 31 % LVID (s) 2.9 cm LVOT diameter 1.8 cm IVS (d) 1.1 cm HR 57 bpm LVPW (d) 1.1 cm LA Vol index 30 ml/m2 Ao Sinus 3.0 cm RA Vol index 62 ml/m2 Ao Sinus ULN 3.7 cm * RA area 26 cm Asc Ao 3.3 cm RV Basal Diam 4.6 cm Asc Ao ULN 4.0 cm * LA 4.2 cm * Input age outside of range, reported values correspond to Age = 79 Diastology: Mitral Tissue Doppler Pulmonary veins E Peak 0.8 m/s e', Septum 0.05 m/s Pulm s 34.1 cm/s A Peak 0.4 m/s e', Lateral 0.11 m/s Pulm d 81.6 cm/s E/A 2.2 E/e' Average 10.14 Pulm s/d ratio 0.42 DT 319 msec Aortic Valve: Vmax 1.2 m/s VANDAAN (V) 1.72 cm VTI 0.28 m VANDANA (I) 1.85 cm LVOT V max 0.8 m/s Max PG 6 mmHg LVOT VTI 0.21 m Mean PG 3 mmHg SV 52 ml Dim Index 0.73 SV index 29 ml/m CO 3.0 l/min CI 1.7 l/min/m Mitral Valve: MVA 2.4 cm MR ERO 0.17 cm MV P 1/2 93 msec MR Vol. 35 ml MR TVI 2.05 m Tricuspid Valve and estimated PA pressures: TR Vmax 3.3 m/s TAPSE 2.0 cm TR maxG 43 mmHg Pulmonic Valve: PV AT 90 msec . This study was interpreted by an [facility] accredited facility. CC: [facility] ([facility]) [facility]. Final Procedure Note Luís Walker MD - 06/07/2024 ECHOCARDIOGRAM SHARI WARE : 1945 79 years Study Date: 06/07/2024 10:13:04 AM Gender: F BP: 155/81 mmHg Height: 163.00 cm BSA: 1.80 m Weight: 74.00 kg Tech: [facility] Referring MD: KARUNA FARFAN Site: [facility] Reading Location: Mobile-OP Patient Location: Outpatient. Procedure: 2D, Color Doppler and Spectral Doppler. Indication for study: Afib Cardiac Rhythm: Regular and unknown.Study quality: Good. Final Impressions: 1. Normal LV size, normal wall thickness, normal global systolic functionwith an estimated EF of 60 - 65%. 2. Right ventricular cavity size is moderately enlarged, global systolicRV function is normal. 3. The mitral valve is normal, mild to moderate mitral regurgitation. 4. Tricuspid valve is normal, moderate tricuspid regurgitation. 5. Mildly increased estimated pulmonary pressures by tricuspidregurgitation velocity and right atrial pressure (43 mmHg plus RAP). Chamber Sizes and Function Normal left ventricular size, normal wall thickness, normal globalsystolic function with an estimated EF of 60 - 65%. No resting regionalwall motion abnormality visualized. Left atrial size is normal. Leftatrial pressure is normal. Right ventricular cavity size is moderatelyenlarged, global systolic RV function is normal. The right atrium isseverely enlarged. Right atrial volume index is 62 ml/m . Right atrialarea is 26 cm . The pulmonary artery is of normal size and origin. Thesinus of Valsalva is normal sized. The ascending aorta is normal sized. Valves, RV Pressures and Diastolic Function The aortic valve is trileaflet, no stenosis and trivial regurgitation. Themitral valve is normal in structure, mild to moderate mitralregurgitation. Indeterminate pattern of LV diastolic filling. Thetricuspid valve is normal in structure, moderate tricuspid regurgitation.The tricuspid regurgitant velocity is 3.3 m/s, the estimated rightventricular systolic pressure is 43 mmHg plus right atrial pressure. Thereis mildly increased estimated pulmonary pressure by tricuspidregurgitation velocity and right atrial pressure. The pulmonic valve isnormal. Trace pulmonary regurgitation. Masses, Effusion, Shunts There is no pericardial effusion. The inferior vena cava is dilated,respiratory size variation not well visualized. No left to right shuntingwas detected by limited color flow Doppler interrogation of theinteratrial septum. MEASUREMENTS AND CALCULATIONS 2-D Measurements and LV Function: LVID (d) 4.1 cm LV FS% (2D) 31% LVID (s) 2.9 cm LVOT diameter1.8 cm IVS (d) 1.1 cm HR 57bpm LVPW (d) 1.1 cm LA Vol index 30ml/m2 Ao Sinus 3.0 cm RA Vol index 62ml/m2 Ao Sinus ULN 3.7 cm * RA area 26cm Asc Ao 3.3 cm RV Basal Diam4.6 cm Asc Ao ULN 4.0 cm * LA 4.2 cm * Input age outside of range, reported values correspond to Age = 79 Diastology: Mitral Tissue Doppler Pulmonary veins E Peak 0.8 m/s e', Septum 0.05 m/s Pulm s 34.1 cm/s A Peak 0.4 m/s e', Lateral 0.11 m/s Pulm d 81.6 cm/s E/A 2.2 E/e' Average 10.14 Pulm s/d ratio 0.42 DT 319 msec Aortic Valve: Vmax 1.2 m/s VANDANA (V) 1.72 cm VTI 0.28 m VANDANA (I) 1.85 cm LVOT V max 0.8 m/s Max PG 6 mmHg LVOT VTI 0.21 m Mean PG 3 mmHg SV 52 ml Dim Index 0.73 SV index 29 ml/m CO 3.0 l/min CI 1.7 l/min/m Mitral Valve: MVA 2.4 cm MR ERO 0.17 cm MV P 1/2 93 msec MR Vol. 35 ml MR TVI 2.05 m Tricuspid Valve and estimated PA pressures: TR Vmax 3.3 m/s TAPSE 2.0 cm TR maxG 43 mmHg Pulmonic Valve: PV AT 90 msec . This study was interpreted by an [facility] accredited facility. CC: [facility] (med records) [facility]. Final us Karuna Farfan MD ECHO ORD Final Resu lt from Last 3 Months Insurance MEDICARE PART B HB ONLY [employer] [place] BL[place] HB ONLY MEDICARE PB ONLY [facility] Care Teams Panel Sewer Relationship Specialty Start Date End Date Randall Koo MD PCP - General 12/24/07
--- OUTSIDE RECORDS SUMMARY | 2024-07-12 07:01 | XMS_ITS | Continuity of Care Document ---
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 [facility] [address], [place], [address], [place]. tel:[phone] [facility], [address], [place], [address], [place] tel:[phone] [facility] , No Information 4 Nawaf Sharif. [facility] [address], [place], [address], [place]. tel:[phone] Office/Outpa tient Visit, New [facility], [address], [place], [address], [place] tel:[phone] [facility] , Joint Pain (chief complaint) Osteoarthros is, generalized, involving unspecified sitePain in joint involving multiple sites 3 Nawaf Sharif. [facility] [address], [place], [address], [place]. tel:[phone] Referring Provider: Kole Etienne, [facility] [address], [place], [address]. tel:[phone] Family History Family Member Type Diagnosis Age At Onset No Information Payers Payer name Insurance type Covered libertarian ID Authoriza [id number](s) [facility] [id number] Social History Type Description Quantity Date Captured [...]
--- NOTE | 2024-07-12 07:17 | XR_ITS ---
Patient: MADELINE WARE Facility:?[facility] Patient ID:?[id number] Site Patient ID:?[id number]. Site :?1945 Study:?XRay-Chest 2 VIEWS-07/12/2024 8:49:02 AM Ordering Physician:MARJAN Final Report: INDICATION: Chest pain COMPARISON: 05/19/2024 TECHNIQUE: PA and lateral 2 view chest. FINDINGS: Lung volumes are good. No focal or diffuse opacities. No pulmonary edema. No pleural effusion. No pneumothorax. No pneumomediastinum. Normal cardiomediastinal silhouette. Atherosclerosis. Bones: No acute finding. IMPRESSION: Lungs clear. No acute findings. Dictated by Lucero Cardenas MD @ 07/12/2024 8:56:17 AM Signed by:?Lucero Cardenas MD @07/12/2024 8:56:17 AM (Electronic Signature)
--- NOTE | 2024-07-12 07:20 | ED_ITS ---
HPI - Chest Pain General Date Seen: 07/12/24 <Ramos Hinton DO - Last Filed: 07/13/24 11:33> Chief Complaint: Chest Pain <Ramos Hinton DO - Last Filed: 07/13/24 11:33> Stated Complaint: chest pain <Ramos Hinton DO - Last Filed: 07/13/24 11:33> Time Seen by Provider: 07/12/24 07:02 <Ramos Hinton DO - Last Filed: 07/13/24 11:33> Source: patient <Ramos Hinton DO - Last Filed: 07/13/24 11:33> Mode of arrival: ambulatory <Ramos Hinton DO - Last Filed: 07/13/24 11:33> Limitations: no limitations <Ramos Hinton - Last Filed: 07/13/24 11:33> History of Present Illness HPI narrative: Patient is an 79-year-old female history of AFib diagnosed back in April of this year presenting to the emergency department for chest pain. She states she woke up at about 05:30 and noticed she had chest pressure. States she has had symptoms similar to this back and April when she was diagnosed with the AFib. States this time the symptoms do not seem as severe. Was seen twice in 24 hours at that time back in April and was discharged both times. She has not seen cardiology yet and is scheduled to see them in July. Has seen a primary care provider for her AFib. States the symptoms are going away she took her morning medication including Eliquis and Cardizem. Does states she has some mild shortness of breath associated with it. No history of blood clots. Did notice lower extremity swelling bilaterally that resolved after using her compression stockings. Had an echocardiogram back in April showing normal EF, normal left ventricle, moderately enlarged right ventricle mild to moderate mitral regurg and moderate tricuspid regurg. Also had mild increased in pulmonary pressures. States she has some mild lightheadedness but this is chronic for her and does not seem any worse than baseline. Denies abdominal pain, headache, vision changes, weakness, numbness, abdominal pain. <Ramos Hinton - Last Filed: 07/13/24 11:33> Related Data Home Medications: Home Medications ?Medication ?Instructions ?Recorded ?Confirmed acetaminophen 325 mg tablet 325 - 650 mg PO DAILY PRN 09/03/21 07/12/24 (Tylenol) cetirizine 10 mg tablet 5 mg PO DAILY PRN 09/03/21 0 07/12/24 latanoprost 0.005 % eye drops 1 drp ophthalmic (eye) Q PM 10/23/22 07/12/24 omeprazole 20 mg capsule,delayed 20 mg PO QAM PRN 05/2607/12/24 release Previous Rx's ?Medication ?Instructions ?Recorded levothyroxine 75 mcg tablet 75 mcg PO DAILY #90 tabs 0 10/13/23 diltiazem HCl 120 mg 120 mg PO Q24H #90 caps 03/20 capsule,extended release 24 hr apixaban 5 mg tablet 5 mg PO BID #180 tabs <Ramos Hinton, DO - Last Filed: 07/13/24 11:33> Allergies/Adverse Reactions: Allergies Allergy/AdvReac Type Severity Reaction Status Date / Time cortisone Allergy Intermediate Redness of Uncoded 07/06/24 08:51 Skin seasonal Allergy Mild Congested Uncoded 07/06/24 08:51 <Ramos Hinton, DO - Last Filed: 07/13/24 11:33> Review of Systems Status of ROS Reports: 10 or more systems reviewed and unremarkable except as noted in History and below <Ramos Hinton, DO - Last Filed: 07/13/24 11:33> [facility] Medical History: Medical History (Updated 07/12/24 @ 13:39 by Nina Negro MD) Chronic fatigue ?R53.82 - Chronic fatigue, unspecified (ICD-10) Glaucoma of both eyes (06/2018) ?H40.9 - Unspecified glaucoma (ICD-10) Copy of active advance healthcare directive within patient chart Right bundle branch block (~04/2010) ?I45.10 - Unspecified right bundle-branch block (ICD-10) Hypothyroidism ?E03.9 - Hypothyroidism, unspecified (ICD-10) Dyspepsia ?R10.13 - Epigastric pain (ICD-10) Chronic low back pain ?M54.50 - Low back pain, unspecified (ICD-10) ?G89.29 - Other chronic pain (ICD-10) Spondylolisthesis of lumbar region ?M43.16 - Spondylolisthesis, lumbar region (ICD-10) Chronic neck pain ?M54.2 - Cervicalgia (ICD-10) ?G89.29 - Other chronic pain (ICD-10) Greater trochanteric bursitis of right hip ?M70.61 - Trochanteric bursitis, right hip (ICD-10) Tendinitis involving right hip abductors ?M76.891 - Other specified enthesopathies of right lower limb, excluding foot (ICD-10) Partial tear of right hamstring ?S76.311A - Strain of muscle, fascia and tendon of the posterior muscle group at thigh level, right thigh, initial encounter (ICD-10) Tear of right gluteus minimus tendon ?S76.011A - Strain of muscle, fascia and tendon of right hip, initial encounter (ICD-10) Right lumbar radiculopathy ?M54.16 - Radiculopathy, lumbar region (ICD-10) Atrial fibrillation ?I48.91 - Unspecified atrial fibrillation (ICD-10) Mitral regurgitation ?I34.0 - Nonrheumatic mitral (valve) insufficiency (ICD-10) Tricuspid regurgitation ?I07.1 - Rheumatic tricuspid insufficiency (ICD-10) <Ramos Hinton DO - Last Filed: 07/13/24 11:33> Surgical History: Surgical History History of inguinal hernia repair (1982) ?Z98.890 - Other specified postprocedural states (ICD-10) ?Z87.19 - Personal history of other diseases of the digestive system (ICD-10) History of arthroplasty of finger of right hand (10/23/17) ?Z96.691 - Finger-joint replacement of right hand (ICD-10) <Ramos Hinton DO - Last Filed: 07/13/24 11:33> Family History: Family History Mother Heart problem Arthritis <Ramos Hinton DO - Last Filed: 07/13/24 11:33> Social History: Social History (Updated 07/12/24 @ 13:43 by Nina Negro MD) Narrative: Lives with Duglas (POA and medical decision maker if needed), 2 adult children. Retired, no ETOH and nonsmoker. Requests DNR/DNI code status. What is your current living situation?: I presently have a place to live Problems where you live: no known problems Problems where you live details: n/a In the past 12 months, utilities in danger of being shut off: no In past 12 months, lack of transportation kept you from medical appts, meetings, work, or getting things needed for daily living: no In the past 12 mos, have been you worried that your food would run out before you had money to buy more?: never true In the past 12 mos, the food you bought just didn't last and you didn't have money to buy more?: never true Highest level of school completed/degree received: some college, no degree Smoking Status: Never smoker Do you use any of these nicotine containing products: None Second hand tobacco smoke exposure: No How often do you have a drink containing alcohol: never How often do you have six or more drinks on one occasion: Never AUDIT-C Alcohol total score: 0 Non-prescribed substance use: denies use Caffeine: No How often does anyone, including family, friends and others, physically hurt you : never How often does anyone, including family, friends and others, insult or talk down to you: never How often does anyone, including family, friends and others, threaten you with harm: never How often does anyone, including family, friends and others, scream or curse at you: never service: No <Ramos Hinton DO - Last Filed: 07/13/24 11:33> Exam Narrative Exam Narrative: Const: Well-nourished, Well-developed, in mild distress Eyes: PERRL, no conjunctival injection, and symmetrical lids HENT: Atraumatic external nose and ears. Moist mucous membranes. Neck: Symmetric, trachea midline, No thyromegaly. CVS: RRR, No murmurs or gallops. Peripheral pulses 2+ and equal in all extremities RESP: Unlabored respiratory effort. Clear to auscultation bilaterally. GI: Nontender/Nondistended, No rebound or guarding. MSK:Extremities w/o deformity, Normal Active ROM Skin: Warm, Dry. No rashes or lesions. Neuro: Normal Muscle tone, No focal neurological deficits. Psych: Awake, Alert, & Oriented x3. Appropriate mood and affect. <Ramos Hinton DO - Last Filed: 07/13/24 11:33> Const Vital Signs, click to edit/add: Vital Signs - 24 hr 07/12/24 11:45 07/12/24 12:20 07/12/24 12:54 Temperature 97.6 F Pulse Rate 76 Pulse Rate [Right Pulse Oximeter] 79 Respiratory Rate 16 16 Blood Pressure [Right Arm] 115/72 Pulse Oximetry 99 99 Oxygen Delivery Method Room Air Room Air Oxygen Flow Rate 1 1 07/12/24 15:00 07/12/24 15:00 07/12/24 15:00 Temperature 98.1 F Pulse Rate 89 Pulse Rate [Right Pulse Oximeter] 74 74 Respiratory Rate 16 16 Blood Pressure [Right Arm] 112/51 L Pulse Oximetry 96 Oxygen Delivery Method Room Air Oxygen Flow Rate 07/12/24 17:30 07/12/24 18:30 07/12/24 19:00 Temperature 97.5 F L 97.7 F Pulse Rate Pulse Rate [Right Pulse Oximeter] 76 94 Respiratory Rate 16 16 Blood Pressure [Right Arm] 85/50 L 116/99 H 103/65 Pulse Oximetry 96 95 Oxygen Delivery Method Room Air Oxygen Flow Rate 0 07/12/24 23:00 07/12/24 23:00 07/12/24 23:00 Temperature 97.7 F Pulse Rate 88 Pulse Rate [Right Pulse Oximeter] 81 92 Respiratory Rate 16 Blood Pressure [Right Arm] 100/57 L Pulse Oximetry 92 Oxygen Delivery Method Room Air Oxygen Flow Rate 0 07/13/24 03:00 07/13/24 05:00 07/13/24 07:00 Temperature Pulse Rate Pulse Rate [Right Pulse Oximeter] 77 103 H Respiratory Rate 16 18 Blood Pressure [Right Arm] 117/72 105/64 118/55 L Pulse Oximetry 96 96 Oxygen Delivery Method Room Air Room Air Oxygen Flow Rate 0 07/13/24 09:25 Temperature Pulse Rate Pulse Rate [Right Pulse Oximeter] 72 Respiratory Rate Blood Pressure [Right Arm] 104/63 Pulse Oximetry Oxygen Delivery Method Oxygen Flow Rate <Ramos Hinton, - Last Filed: 07/13/24 11:33> Vital Signs - 24 hr 07/12/24 11:45 07/12/24 12:20 07/12/24 12:54 Temperature 97.6 F Pulse Rate 76 Pulse Rate [Right Pulse Oximeter] 79 Respiratory Rate 16 16 Blood Pressure [Right Arm] 115/72 Pulse Oximetry 99 99 Oxygen Delivery Method Room Air Room Air Oxygen Flow Rate 1 1 07/12/24 15:00 07/12/24 15:00 07/12/24 15:00 Temperature 98.1 F Pulse Rate 89 Pulse Rate [Right Pulse Oximeter] 74 74 Respiratory Rate 16 16 Blood Pressure [Right Arm] 112/51 L Pulse Oximetry 96 Oxygen Delivery Method Room Air Oxygen Flow Rate 07/12/24 17:30 07/12/24 18:30 07/12/24 19:00 Temperature 97.5 F L 97.7 F Pulse Rate Pulse Rate [Right Pulse Oximeter] 76 94 Respiratory Rate 16 16 Blood Pressure [Right Arm] 85/50 L 116/99 H 103/65 Pulse Oximetry 96 95 Oxygen Delivery Method Room Air Oxygen Flow Rate 0 07/12/24 23:00 07/12/24 23:00 07/12/24 23:00 Temperature 97.7 F Pulse Rate 88 Pulse Rate [Right Pulse Oximeter] 81 92 Respiratory Rate 16 Blood Pressure [Right Arm] 100/57 L Pulse Oximetry 92 Oxygen Delivery Method Room Air Oxygen Flow Rate 0 07/13/24 03:00 07/13/24 05:00 07/13/24 07:00 Temperature Pulse Rate Pulse Rate [Right Pulse Oximeter] 77 103 H Respiratory Rate 16 18 Blood Pressure [Right Arm] 117/72 105/64 118/55 L Pulse Oximetry 96 96 Oxygen Delivery Method Room Air Room Air Oxygen Flow Rate 0 07/13/24 09:25 Temperature Pulse Rate Pulse Rate [Right Pulse Oximeter] 72 Respiratory Rate Blood Pressure [Right Arm] 104/63 Pulse Oximetry Oxygen Delivery Method Oxygen Flow Rate <Aria Lang MD - Last Filed: 07/12/24 11:17> Course Reevaluation(s) Time of Reevaluation #1: 08:23 <Aria Lang MD - Last Filed: 07/12/24 11:17> Reevaluation #1: Reviewed with patient that her initial troponin is normal. She is just feeling tired, otherwise states she feels fine. Heart rate is anywhere between 90s to mostly 110, sometimes goes up above that but briefly and nothing over 120. Patient states she did take her oral medicines this morning. Will continue to monitor, consider extra rate control if needed. <Aria Argueta MD - Last Filed: 07/12/24 11:17> Time of Reevaluation #2: 09:53 <Aria Lang MD - Last Filed: 07/12/24 11:17> Reevaluation #2: Repeat EKG is showing a rate of 106 beats per minute. She currently is at 1:18 a.m.. Did order an extra 30 mg oral diltiazem of immediate release. Monserrat nt did let nursing staff know that she had been doubling her Cardizem, has been taking 240 mg of the CD per Dr. Farfan. She has been doing that for a couple of weeks now reportedly. Heart rate currently is anywhere from 89-115 as I watch her monitor for few minutes. Nursing staff will ambulate patient with monitoring to see what happens with her heart rate. Patient is in the 130's walking in the department. She became a little dyspneic at the and and did need to sit down. No chest pain. Awaiting Dr. Farfan to call me, did let her know that I wanted to talk to her regarding this patient (she is in clinic and currently with another patient). <Aria Lang MD - Last Filed: 07/12/24 11:17> Time of Reevaluation #3: 10:43 <Aria Lang MD - Last Filed: 07/12/24 11:17> Reevaluation #3: Have consented the patient on risks and benefits of cardioversion from both cardiac arrhythmia standpoint, airway complications. She agrees. We are consulting anesthesia to see if they may be able to assist me with the conscious sedation. Nursing staff is working on getting patient appropriate monitoring. <Aria Lang MD - Last Filed: 07/12/24 11:17> Additional Reevaluation(s): 11:04 a.m.: Patient had 3 attempted shocks at 200 joules without resumption of sinus rhythm. She is being monitored post sedation, anesthesia is still present. She had appropriate monitoring per protocol and Anesthesia was present for sedation, used propofol fall. Please see anesthesia record. Will be paging carry out clerk again to discuss further measures. <Aria Argueta MD - Last Filed: 07/12/24 11:17> Consultations Consultation #1: Have spoken with Dr. Farfan and reviewed my concerns regarding increased seen rate suppression, she agrees as this patient is already on 240 mg Cardizem CD. We did discuss digoxin which she brought up which I think might be an excellent idea, echo mid May showed normal ejection fraction. She did also bring up that this patient has been anticoagulated since beginning of May. Will contact [facility] and discussed cardioversion. <Aria Argueta MD - Last Filed: 07/12/24 11:17> Time: 10:12 <Aria Lang MD - Last Filed: 07/12/24 11:17> Consultation #2: Have spoken with Dr. Cruz. If patient has been consistently anticoagulated for 3 weeks, he thinks we should do cardioversion and place a monitor on afterwards. Did discuss with him leaving her on some rate suppression with Cardizem which he did agree, we both agreed that going back down to a 120 mg of the Cardizem CD would be optimal if she cardioverts. 11:08 a.m.: Did review with carry out clerk that cardioversion did not work. He would like her titrated over to metoprolol. Did not want digoxin started. He would recommend hospitalization for switching over from Cardizem to metoprolol and titrating the metoprolol up. Will order to 25 mg now. She did take her Cardizem this morning. She also has taken her anticoagulant Eliquis this morning. <Aria Lang MD - Last Filed: 07/12/24 11:17> Time: 10:27 <Aria Lang MD - Last Filed: 07/12/24 11:17> Consultation #3: Did speak with the hospitalist Dr. Negro, she accepts care. Will update the patient and her regarding plan. <Aria Lang MD - Last Filed: 07/12/24 11:17> Time: 11:17 <Aria Lang MD - Last Filed: 07/12/24 11:17> Vital Signs Vital signs: Initial Vital Signs Temperature 96.5 F L 07/12/24 07:06 Temperature Source Temporal Artery Scan 07/12/24 07:06 Pulse Rate 101 H 07/12/24 07:06 Respiratory Rate 24 07/12/24 07:06 Blood Pressure 142/86 H 07/12/24 07:06 Blood Pressure Mean 104 07/12/24 07:06 Blood Pressure Position Supine 07/12/24 07:06 Pulse Oximetry 97 07/12/24 07:06 Oxygen Delivery Method Room Air 07/12/24 07:06 Vital Signs Temperature 96.5 F L 07/12/24 07:06 Pulse Rate 101 H 07/12/24 07:06 Respiratory Rate 24 07/12/24 07:06 Blood Pressure 142/86 H 07/12/24 07:06 Pulse Oximetry 97 07/12/24 07:06 Oxygen Delivery Method Room Air 07/12/24 07:06 Temperature 97.7 F 07/12/24 23:00 Pulse Rate 72 07/13/24 09:25 Respiratory Rate 18 07/13/24 07:00 Blood Pressure 104/63 07/13/24 09:25 Pulse Oximetry 96 07/13/24 07:00 Oxygen Delivery Method Room Air 07/13/24 07:00 Oxygen Flow Rate 0 07/13/24 03:00 <Ramos Hinton DO - Last Filed: 07/13/24 11:33> Initial Vital Signs Temperature 96.5 F L 07/12/24 07:06 Temperature Source Temporal Artery Scan 07/12/24 07:06 Pulse Rate 101 H 07/12/24 07:06 Respiratory Rate 07/12/24 07:06 Blood Pressure 142/86 H 07/12/24 07:06 Blood Pressure Mean 104 07/12/24 07:06 Blood Pressure Position Supine 07/12/24 07:06 Pulse Oximetry 97 07/12/24 07:06 Oxygen Delivery Method Room Air 07/12/24 07:06 Vital Signs Temperature 96.5 F L 07/12/24 07:06 Pulse Rate 101 H 07/12/24 07:06 Respiratory Rate 24 07/12/24 07:06 Blood Pressure 142/86 H 07/12/24 07:06 Pulse Oximetry 97 07/12/24 07:06 Oxygen Delivery Method Room Air 07/12/24 07:06 Temperature 97.7 F 07/12/24 23:00 Pulse Rate 72 07/13/24 09:25 Respiratory Rate 18 07/13/24 07:00 Blood Pressure 104/63 07/13/24 09:25 Pulse Oximetry 96 07/13/24 07:00 Oxygen Delivery Method Room Air 07/13/24 07:00 Oxygen Flow Rate 0 07/13/24 03:00 <Aria Lang MD - Last Filed: 07/12/24 11:17> Medications Administered Medications: Generic Name Dose Route Start Last Admin Trade Name Freq PRN Reason Stop Dose Admin Acetaminophen 1,000 mg 07/12/24 14:49 07/12/24 20:30 Acetaminophen 500 Mg Tablet PO 1,000 mg Q6H PRN Administration Apixaban 5 mg 07/12/24 21:00 07/13/24 08:27 Apixaban 5 Mg Tablet PO 5 mg BID ADITHYA Administration Latanoprost 1 drop 07/12/24 18:00 07/12/24 17:24 Latanoprost 0.005% Ophth EYE-BOTH 1 drop QPM ADITHYA Administration Levothyroxine Sodium 75 mcg 07/13/24 07:00 07/13/24 06:24 Levothyroxine 75 Mcg Tablet PO 75 mcg DAILY@0700 ADITHYA Administration Metoprolol Succinate 25 mg 07/13/24 09:00 07/13/24 08:27 Metoprolol Succinate (Xl) 25 Mg Tab PO 25 mg DAILY ADITHYA Administration Sodium Chloride 5 ml 07/12/24 21:00 07/13/24 08:28 Sodium Chloride 0.9 % (Flush) 10 Ml Syringe IVF 5 ml BID ADITHYA Administration Discontinued Medications Generic Name Dose Route Start Last Admin Trade Name Freq PRN Reason Stop Dose Admin Digoxin 125 mcg 07/12/24 10:16 07/12/24 11:39 Digoxin 125 Mcg Tablet PO 07/12/24 10:17 Not Given ONCE ONE Diltiazem HCl 30 mg 07/12/24 09:41 07/12/24 11:39 Diltiazem 30 Mg Tablet PO 07/12/24 09:42 Not Given ONCE ONE Sodium Chloride 250 mls @ 250 mls/hr 07/12/24 11:22 07/12/24 11:26 0.9 % Sodium Chloride 250 Ml IV 07/12/24 12:21 Infused .Q1H ONE Infusion Metoprolol Tartrate 25 mg 07/12/24 11:17 07/12/24 11:25 Metoprolol Tartrate 25 Mg Tablet PO 07/12/24 11:18 25 mg ONCE ONE Administration Metoprolol Tartrate 25 mg 07/12/24 17:00 07/13/24 05:30 Metoprolol Tartrate 25 Mg Tablet PO Not Given Q6H ADITHYA <Ramos Hinton, DO - Last Filed: 07/13/24 11:33> Generic Name Dose Route Start Last Admin Trade Name Freq PRN Reason Stop Dose Admin Acetaminophen 1,000 mg 07/12/24 14:49 07/12/24 20:30 Acetaminophen 500 Mg Tablet PO 1,000 mg Q6H PRN Administration Apixaban 5 mg 07/12/24 21:00 07/13/24 08:27 Apixaban 5 Mg Tablet PO 5 mg BID ADITHYA Administration Latanoprost 1 drop 07/12/24 18:00 07/12/24 17:24 Latanoprost 0.005% Ophth EYE-BOTH 1 drop QPM ADITHYA Administration Levothyroxine Sodium 75 mcg 07/13/24 07:00 07/13/24 06:24 Levothyroxine 75 Mcg Tablet PO 75 mcg DAILY@0700 ADITHYA Administration Metoprolol Succinate 25 mg 07/13/24 09:00 07/13/24 08:27 Metoprolol Succinate (Xl) 25 Mg Tab PO 25 mg DAILY ADITHYA Administration Sodium Chloride 5 ml 07/12/24 21:00 07/13/24 08:28 Sodium Chloride 0.9 % (Flush) 10 Ml Syringe IVF 5 ml BID ADITHYA Administration Discontinued Medications Generic Name Dose Route Start Last Admin Trade Name Freq PRN Reason Stop Dose Admin Digoxin 125 mcg 07/12/24 10:16 07/12/24 11:39 Digoxin 125 Mcg Tablet PO 07/12/24 10:17 Not Given ONCE ONE Diltiazem HCl 30 mg 07/12/24 09:41 07/12/24 11:39 Diltiazem 30 Mg Tablet PO 07/12/24 09:42 Not Given ONCE ONE Sodium Chloride 250 mls @ 250 mls/hr 07/12/24 11:22 07/12/24 11:26 0.9 % Sodium Chloride 250 Ml IV 07/12/24 12:21 Infused .Q1H ONE Infusion Metoprolol Tartrate 25 mg 07/12/24 11:17 07/12/24 11:25 Metoprolol Tartrate 25 Mg Tablet PO 07/12/24 11:18 25 mg ONCE ONE Administration Metoprolol Tartrate 25 mg 07/12/24 17:00 07/13/24 05:30 Metoprolol Tartrate 25 Mg Tablet PO Not Given Q6H ADITHYA <Aria Lang MD - Last Filed: 07/12/24 11:17> MDM - Chest Pain MDM Narrative Medical decision making narrative: Patient is an 79-year-old female presenting to the emergency department for chest pain. The differential diagnosis of chest pain is broad and includes common etiologies such as musculoskeletal strain, GERD, pneumonia, etc. More serious etiologies considered include PE, coronary artery disease, pneumothorax, aortic dissection, aortic aneurysm. Last time she had the symptoms it was associated so we to her AFib. As far she is aware she is always in AFib. Will do an EKG and troponin to look for signs of ACS. Chest x-ray up look for signs of pneumonia or pneumothorax. She looks otherwise stable my concern for aortic dissection and aortic aneurysm is low. <Ramos Hinton DO - Last Filed: 07/13/24 11:33> Lab Data Attestation: I reviewed the patient's lab results. <Aria Lang MD - Last Filed: 07/12/24 11:17> Labs: Lab Results 07/12/24 07/12/24 07/12/24 Range/Units 07:20 09:36 12:18 WBC 7.91 (4.50-11.00) K/uL RBC 5.09 (4.00-5.20) m/uL Hgb 14.7 (12.0-16.0) gm/dL Hct 44.9 (33.0-51.0) % MCV 88 (80-100) fL MCH 29 (26-34) pg MCHC 33 (32-36) gm/dL RDW Coeff of Dominique 12.8 (11.5-15.5) % Plt Count 284 (140-440) K/uL Neut % (Auto) 74.3 H (42.0-72.0) % Lymph % (Auto) 16.4 L (20-44) % Centre % (Auto) 6.4 (0.0-11.0) % Eos % (Auto) 2.0 (0.0-7.0) % Baso % (Auto) 0.6 (0.0-3.0) % Neut # (Auto) 5.90 (1.7-7.0) K/uL Lymph # (Auto) 1.30 (0.90-2.90) K/uL Centre # (Auto) 0.50 (0.00-0.90) K/UL Eos # (Auto) 0.16 (0.00-0.50) K/uL Baso # (Auto) 0.05 (0.00-0.30) K/uL Abs Immat Gran (auto) 0.02 (0.00-0.30) K/uL Imm/Tot Granulo (auto) 0.3 % Sodium 139 (135-149) mmol/L Potassium 3.9 (3.6-5.1) mmol/L Chloride 106 (96-114) mmol/L Carbon Dioxide 26 (20-32) mmol/L Anion Gap 7 (7-15) mEq/L BUN 20 (7-30) mg/dL Creatinine 0.9 (0.5-1.5) mg/dL Estimated Creat Clear Estimated GFR 65 ml/min Glucose 101 (60-115) mg/dL Calcium 9.5 (8.4-10.6) mg/dL Magnesium 2.0 (1.5-2.6) mg/dL Troponin I < 0.01 (0.01-0.04) ng/mL NT-Pro-B Natriuret Pep 1080 pg/mL TSH 4.730 H (0.270-4.20) uIU/mL SARS-CoV-2 (PCR) Negative SARS-CoV-2 (Negative) Influenza Type A (PCR) Negative PCR FLU A (Negative) Influenza Type B (PCR) Negative PCR FLU B (Negative) RSV (PCR) Negative PCR RSV (Negative) Lab Acknowledgement Test Added POC Troponin I 0.00 L 0.01 (0.01-0.04) ng/ml 07/13/24 Range/Units 06:31 WBC 8.29 (4.50-11.00) K/uL RBC 4.91 (4.00-5.20) m/uL Hgb 14.2 (12.0-16.0) gm/dL Hct 43.3 (33.0-51.0) % MCV 88 (80-100) fL MCH 29 (26-34) pg MCHC 33 (32-36) gm/dL RDW Coeff of Dominique 12.9 (11.5-15.5) % Plt Count 296 (140-440) K/uL Neut % (Auto) 64.7 (42.0-72.0) % Lymph % (Auto) 25.2 (20-44) % Centre % (Auto) 7.4 (0.0-11.0) % Eos % (Auto) 2.4 (0.0-7.0) % Baso % (Auto) 0.2 (0.0-3.0) % Neut # (Auto) 5.36 (1.7-7.0) K/uL Lymph # (Auto) 2.09 (0.90-2.90) K/uL Centre # (Auto) 0.60 (0.00-0.90) K/UL Eos # (Auto) 0.20 (0.00-0.50) K/uL Baso # (Auto) 0.02 (0.00-0.30) K/uL Abs Immat Gran (auto) 0.01 (0.00-0.30) K/uL Imm/Tot Granulo (auto) 0.1 % Sodium 140 (135-149) mmol/L Potassium 3.9 (3.6-5.1) mmol/L Chloride 107 (96-114) mmol/L Carbon Dioxide 26 (20-32) mmol/L Anion Gap 7 (7-15) mEq/L BUN 22 (7-30) mg/dL Creatinine 0.9 (0.5-1.5) mg/dL Estimated Creat Clear 38.75 Estimated GFR 65 ml/min Glucose 102 (60-115) mg/dL Calcium 9.0 (8.4-10.6) mg/dL Magnesium 2.1 (1.5-2.6) mg/dL Troponin I (0.01-0.04) ng/mL NT-Pro-B Natriuret Pep pg/mL TSH (0.270-4.20) uIU/mL SARS-CoV-2 (PCR) (Negative) Influenza Type A (PCR) (Negative) Influenza Type B (PCR) (Negative) RSV (PCR) (Negative) Lab Acknowledgement POC Troponin I (0.01-0.04) ng/ml <Ramos Rios Jamaal, DO - Last Filed: 07/13/24 11:33> Lab Results 07/12/24 07/12/24 07/12/24 Range/Units 07:20 09:36 12:18 WBC 7.91 (4.50-11.00) K/uL RBC 5.09 (4.00-5.20) m/uL Hgb 14.7 (12.0-16.0) gm/dL Hct 44.9 (33.0-51.0) % MCV 88 (80-100) fL MCH 29 (26-34) pg MCHC 33 (32-36) gm/dL RDW Coeff of Dominique 12.8 (11.5-15.5) % Plt Count 284 (140-440) K/uL Neut % (Auto) 74.3 H (42.0-72.0) % Lymph % (Auto) 16.4 L (20-44) % Centre % (Auto) 6.4 (0.0-11.0) % Eos % (Auto) 2.0 (0.0-7.0) % Baso % (Auto) 0.6 (0.0-3.0) % Neut # (Auto) 5.90 (1.7-7.0) K/uL Lymph # (Auto) 1.30 (0.90-2.90) K/uL Centre # (Auto) 0.50 (0.00-0.90) K/UL Eos # (Auto) 0.16 (0.00-0.50) K/uL Baso # (Auto) 0.05 (0.00-0.30) K/uL Abs Immat Gran (auto) 0.02 (0.00-0.30) K/uL Imm/Tot Granulo (auto) 0.3 % Sodium 139 (135-149) mmol/L Potassium 3.9 (3.6-5.1) mmol/L Chloride 106 (96-114) mmol/L Carbon Dioxide 26 (20-32) mmol/L Anion Gap 7 (7-15) mEq/L BUN 20 (7-30) mg/dL Creatinine 0.9 (0.5-1.5) mg/dL Estimated Creat Clear Estimated GFR 65 ml/min Glucose 101 (60-115) mg/dL Calcium 9.5 (8.4-10.6) mg/dL Magnesium 2.0 (1.5-2.6) mg/dL Troponin I < 0.01 (0.01-0.04) ng/mL NT-Pro-B Natriuret Pep 1080 pg/mL TSH 4.730 H (0.270-4.20) uIU/mL SARS-CoV-2 (PCR) Negative SARS-CoV-2 (Negative) Influenza Type A (PCR) Negative PCR FLU A (Negative) Influenza Type B (PCR) Negative PCR FLU B (Negative) RSV (PCR) Negative PCR RSV (Negative) Lab Acknowledgement Test Added POC Troponin I 0.00 L 0.01 (0.01-0.04) ng/ml 07/13/24 Range/Units 06:31 WBC 8.29 (4.50-11.00) K/uL RBC 4.91 (4.00-5.20) m/uL Hgb 14.2 (12.0-16.0) gm/dL Hct 43.3 (33.0-51.0) % MCV 88 (80-100) fL MCH 29 (26-34) pg MCHC 33 (32-36) gm/dL RDW Coeff of Dominique 12.9 (11.5-15.5) % Plt Count 296 (140-440) K/uL Neut % (Auto) 64.7 (42.0-72.0) % Lymph % (Auto) 25.2 (20-44) % Centre % (Auto) 7.4 (0.0-11.0) % Eos % (Auto) 2.4 (0.0-7.0) % Baso % (Auto) 0.2 (0.0-3.0) % Neut # (Auto) 5.36 (1.7-7.0) K/uL Lymph # (Auto) 2.09 (0.90-2.90) K/uL Centre # (Auto) 0.60 (0.00-0.90) K/UL Eos # (Auto) 0.20 (0.00-0.50) K/uL Baso # (Auto) 0.02 (0.00-0.30) K/uL Abs Immat Gran (auto) 0.01 (0.00-0.30) K/uL Imm/Tot Granulo (auto) 0.1 % Sodium 140 (135-149) mmol/L Potassium 3.9 (3.6-5.1) mmol/L Chloride 107 (96-114) mmol/L Carbon Dioxide 26 (20-32) mmol/L Anion Gap 7 (7-15) mEq/L BUN 22 (7-30) mg/dL Creatinine 0.9 (0.5-1.5) mg/dL Estimated Creat Clear 38.75 Estimated GFR 65 ml/min Glucose 102 (60-115) mg/dL Calcium 9.0 (8.4-10.6) mg/dL Magnesium 2.1 (1.5-2.6) mg/dL Troponin I (0.01-0.04) ng/mL NT-Pro-B Natriuret Pep pg/mL TSH (0.270-4.20) uIU/mL SARS-CoV-2 (PCR) (Negative) Influenza Type A (PCR) (Negative) Influenza Type B (PCR) (Negative) RSV (PCR) (Negative) Lab Acknowledgement POC Troponin I (0.01-0.04) ng/ml <Aria Lang MD - Last Filed: 07/12/24 11:17> Imaging Data Chest x-ray: Attestation: I have reviewed the pertinent imaging results. <Aria Argueta MD - Last Filed: 07/12/24 11:17> My impression: Chest x-ray visualize, do not denote any congestive heart failure my preliminary review. <Aria Lang MD - Last Filed: 07/12/24 11:17> Radiologist's impression: Patient: MADELINE WARE Facility:?[facility] Patient ID:?[id number] Site Patient ID:?[id number]. Site :?[id number] Study:?XRay-Chest 2 VIEWS-07/12/2024 8:49:02 AM Ordering Physician:MARJAN Final Report: INDICATION: Chest pain COMPARISON: 05/19/2024 TECHNIQUE: PA and lateral 2 view chest. FINDINGS: Lung volumes are good. No focal or diffuse opacities. No pulmonary edema. No pleural effusion. No pneumothorax. No pneumomediastinum. Normal cardiomediastinal silhouette. Atherosclerosis. Bones: No acute finding. IMPRESSION: Lungs clear. No acute findings. Dictated by Lucero Cardenas MD @ 07/12/2024 8:56:17 AM (Electronic Signature) <Aria Lang MD - Last Filed: 07/12/24 11:17> ECG Data Attestation: I personally reviewed and interpreted this ECG as follows: <Ramos Hinton DO - Last Filed: 07/13/24 11:33> Prior ECG tracings: available for review <Ramos Hinton DO - Last Filed: 07/13/24 11:33> Interpretation: AFib with a rate of 96 beats per minute, normal QRS, normal QTC, left axis deviation, T wave inversions seen in lead III and V3, no ST abnormalities. Appears similar to previous EKG on file. <Ramos Hinton DO - Last Filed: 07/13/24 11:33> AFib with a rate of 96 beats per minute, normal QRS, normal QTC, left axis deviation, T wave inversions seen in lead III and V3, no ST abnormalities. Appears similar to previous EKG on file. Repeat EKG at 9:33 a.m. shows atrial fibrillation with rapid ventricular response, 106 beats per minute. Bifascicular block, no acute changes from prior. <Aria Lang MD - Last Filed: 07/12/24 11:17> Discharge Plan Discharge Clinical Impression: Atrial fibrillation with rapid ventricular response, Encounter for cardioversion procedure <Ramos Hinton DO - Last Filed: 07/13/24 11:33> Patient Disposition: Admitted As Observation <Ramos Hinton DO - Last Filed: 07/13/24 11:33> Condition: Unchanged <Ramos Hinton DO - Last Filed: 07/13/24 11:33>
[2024-07-12 07:31] LABS: Basophils Absolute Auto 0.05 K/uL (0.00-0.30); Basophils Percent Auto 0.6 % (0.0-3.0); Eosinophils Absolute Auto 0.16 K/uL (0.00-0.50); Hematocrit 44.9 % (33.0-51.0); Hemoglobin* 14.7 gm/dL (12.0-16.0); Immature Granulocytes Abs Auto 0.02 K/uL (0.00-0.30); Immature Granulocytes Pct Auto 0.3 %; Lymphocytes Percent Auto 16.4 % (20-44); Mean Corpuscular HGB Conc 33 gm/dL (32-36); Mean Corpuscular Hemoglobin 29 pg (26-34); Mean Corpuscular Volume 88 fL (80-100); Monocytes Percent Auto 6.4 % (0.0-11.0); Neutrophils Percent Auto 74.3 % (42.0-72.0); Platelet Count* 284 K/uL (140-440); RDW Coefficient of Variation % 12.8 % (11.5-15.5); Red Blood Count 5.09 m/uL (4.00-5.20); White Blood Count* 7.91 K/uL (4.50-11.00)
--- OUTSIDE RECORDS SUMMARY | 2024-07-12 07:31 | XMS_ITS | Continuity of Care Document ---
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 [facility] [address], [place], [address], [place]. tel:[phone] [facility], [address], [place], [address], [place] tel:[phone] [facility] , No Information 4 Nawaf Sharif. [facility] [address], [place], [address], [place]. tel:[phone] Office/Outpa tient Visit, New [facility], [address], [place], [address], [place] tel:[phone] [facility] , Joint Pain (chief complaint) Osteoarthros is, generalized, involving unspecified sitePain in joint involving multiple sites 3 Nawaf Sharif. [facility] [address], [place], [address], [place]. tel:[phone] Referring Provider: Kole Etienne, [facility] [address], [place], [address]. tel:[phone] Family History Family Member Type Diagnosis Age At Onset No Information Payers Payer name Insurance type Covered constitution party ID Authoriza timatthew(s) [facility] [id number] Social History Type Description Quantity Date Captured [...]
--- OUTSIDE RECORDS SUMMARY | 2024-07-12 07:31 | XMS_ITS | Clinical Summary ---
Author Organization [facility] Address [address] [place] [address] Care Team Providers Care Station Detective Name Role Phone Randall Koo MD Primary Care Provider Unava ilable Allergies No known active allergies Medications No known medications Active Problems No known active problems Encounters Date Type Department Care Team Description 06/07/2024 10:00 AM CDT Ancillary Procedure [facility] [place] [facility] [address] [place] [address] 05/10/2024 Telephone [facility] [address] [place] [address] Brenton Skinner MD Appointment Request 05/10/2024 Transcribe Orders [facility] [address] [place] [address] Kole Foss MD 2024 Transcribe Orders [facility] [address] [place] [address] Kole oFss MD from Last 3 Months Social History Tobacco Use Types Packs/Day Years Used Date Smoking Tobacco: Never Assessed Comments Unknown Sex and Gender Information Value Date Recorded Sex Assigned at Not on file Legal Sex Female 5:49 AM 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 PRE NEED 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 Gender Identity Not on file Sexual Orientation Not on file Obstetrics History Last Filed Vital Signs Vital Sign Reading Time Taken Comments Blood Pressure 97/56 03/09/2008 8:20 AM FUNERAL PRE NEED CONSULTANT Pulse 55 03/09/2008 8:20 AM FUNERAL PRE NEED CONSULTANT Temperature - - Respiratory Rate - - Oxygen Saturation 99% 03/09/2008 8:20 AM FUNERAL PRE NEED CONSULTANT Inhaled Oxygen Concentration - - Weight - [...] BSA: 1.80 m Weight: 74.00 kg Tech: [facility] Referring MD: KARUNA FARFAN Site: [facility] Reading Location: Mobile-OP Patient Location: [...] . This study was interpreted by an [facility] accredited facility. CC: [facility] ([facility]) [facility]. Final Procedure Note Luís Walker MD - 06/07/2024 ECHOCARDIOGRAM SHARI WARE : 1945 79 years Study Date: 06/07/2024 10:13:04 AM Gender: F BP: 155/81 mmHg Height: 163.00 cm BSA: 1.80 m Weight: 74.00 kg Tech: [facility] Referring MD: KARUNA FARFAN Site: [facility] Reading Location: Mobile-OP Patient Location: [...] interpreted by an [facility] accredited facility. CC: [facility] (med records) [facility]. Final us Karuna Farfan MD ECHO ORD Final Resu lt from Last 3 Months Insurance MEDICARE PART B HB ONLY [employer] [place] BLUE HB ONLY MEDICARE PB ONLY [facility] Care Teams Station Detective Relationship Specialty Start Date End Date Randall Koo MD PCP - General 12/24/07
[2024-07-12 07:33] LABS: Slide Review Reflex No
[2024-07-12 07:55] LABS: Chloride* 106 mmol/L (96-114); Potassium* 3.9 mmol/L (3.6-5.1); Sodium* 139 mmol/L (135-149)
[2024-07-12 07:58] LABS: Anion Gap 7 mEq/L (7-15); Blood Urea Nitrogen* 20 mg/dL (7-30); Calcium* 9.5 mg/dL (8.4-10.6); Carbon Dioxide* 26 mmol/L (20-32); Creatinine* 0.9 mg/dL (0.5-1.5); Estimated Glomerular Filt Rate 65 ml/min; Glucose* 101 mg/dL (60-115)
[2024-07-12 08:09] LABS: PCR FLU A Negative PCR FLU A (Negative); PCR FLU B Negative PCR FLU B (Negative); PCR RSV Negative PCR RSV (Negative); SARS PCR* Negative SARS-CoV-2 (Negative)
[2024-07-12 08:14] LABS: NT Pro B Type NatriureticPept* 1080 pg/mL; Troponin I* < 0.01 ng/mL (0.01-0.04)
[2024-07-12 09:37] LABS: Troponin, Point-of-Care* 0.01 ng/ml (0.01-0.04)
[2024-07-12] MEDS: 0.9 % SODIUM CHLORIDE 250 ml 250 ML IV (11:00)
--- NOTE | 2024-07-12 11:14 | P.ANES_ITS ---
Anesthesia Charges Start Date/Time Anesthesia Start Date: 07/12/24 Anesthesia Start Time: 10:58 Stop Date/Time Anesthesia Stop Date: 07/12/24 Anesthesia Stop Time: 11:10 Summary Emergency: RUM PROCESSING OPERATOR Extremes of Age - Over 70 or under 1: RUM PROCESSING OPERATOR Coding CPT Codes CPT Codes: ANESTH CORRECT HEART RHYTHM - 44462 ([id number]) P3 - PATIENT W/SEVERE SYS DISEASE, QZ - RUM PROCESSING OPERATOR SVC W/O OUTSIDE MACHINIST APPRENTICE BY Additional Codes: Summary - Extremes of Age - Over 70 or under 1: RUM PROCESSING OPERATOR ([id number]) Summary - Emergency: RUM PROCESSING OPERATOR ([id number])
--- NOTE | 2024-07-12 11:14 | W.ANESCHARGE ---
Anesthesia Charges Start Date/Time Anesthesia Start Date: 07/12/24 Anesthesia Start Time: 10:58 Stop Date/Time Anesthesia Stop Date: 07/12/24 Anesthesia Stop Time: 11:10 Summary Emergency: COBOL PROGRAMMER Extremes of Age - Over 70 or under 1: COBOL PROGRAMMER Coding CPT Codes CPT Codes: ANESTH CORRECT HEART RHYTHM - 50869 ([id number]) P3 - PATIENT W/SEVERE SYS DISEASE, QZ - COBOL PROGRAMMER SVC W/O FAMILY SERVICES COORDINATOR BY Additional Codes: Summary - Extremes of Age - Over 70 or under 1: COBOL PROGRAMMER ([id number]) Summary - Emergency: COBOL PROGRAMMER ([id number])
[2024-07-12] MEDS: METOPROLOL TARTRATE 25 MG TABLET PO (11:25)
--- NOTE | 2024-07-12 12:16 | P.IMHP_ITS ---
Assessment and Plan Assessment and plan (1) Atrial fibrillation with rapid ventricular response: Problem comment: - first diagnosed 04/2024, Diltiazem and Eliquis initiated at that time - poor rate control upon ER presentation 07/12/24, attempted cardioversion was unsuccessful thrice - Cardiology recommends transition to Metoprolol (start with 25mg IR Q6H) from Diltiazem, will admit and monitor BP and HR while making this change (h/o hypotension) Status: Acute (2) Hypothyroidism: Problem comment: - on levothyroxine, will continue - TSH 4.73 on 07/12 Status: Acute (3) Tricuspid regurgitation: Problem comment: - Moderate tricuspid regurgitation noted by ECHO 06/18 (done for new atrial fibrillation) with mildly increased pulmonary pressures Status: Acute Plan - transition to Metoprolol as noted above - monitor BP and HR closely - anticipates home with when medically stable (likely 1-2 days) Hospitalist- H&P: HPI History of Present Illness Date Seen: 07/12/24 Chief complaint: chest pain Narrative: Shari Alas is a 79 year old female who presented to the emergency room this morning for chest discomfort. She woke up with chest pressure, took her morning Eliquis and diltiazem, and then woke her to bring her in given persistent symptoms. Known history of a fib, first diagnosed in April of 2024 after presenting to the emergency room for chest pain. At that time, had RVR and was started on Eliquis and diltiazem. Last TTE completed 06/18 with EF 60-65%, moderate TR, mild to moderate MR, mildly increased pulmonary pressures. ER: - attempted cardioversion x3, unsuccessful - ER physician reviewed with Cardiology; recommends transitioning from Cardizem to Metoprolol (start with 25mg IR Q6H, titrate up/to ER as tolerated), admit for monitoring - CXR reassuring - a fib on EKG, rate 90s-130s during stay - K of 3.9, Mg 2.0, CBC wnl, TSH 4.7 Histories reviewed below, PCP is Dr. Farfan. Has an appt with Dr. Walker of Cardiology on 07/22. Review of Systems Status of ROS: Reports: 10 or more systems reviewed and unremarkable except as noted in History and below Narrative: - had noted LE last week, wore jennie hose for 3-4 days, edema improved yesterday - no GI symptoms - chronic hip pain and back pain is stable, primarily uses APAP for this [facility] Medical History (Updated 07/12/24 @ 13:39 by Nina Negro MD) Chronic fatigue ?R53.82 - Chronic fatigue, unspecified (ICD-10) Glaucoma of both eyes (06/2018) ?H40.9 - Unspecified glaucoma (ICD-10) Copy of active advance healthcare directive within patient chart Right bundle branch block (~04/2010) ?I45.10 - Unspecified right bundle-branch block (ICD-10) Hypothyroidism ?E03.9 - Hypothyroidism, unspecified (ICD-10) Dyspepsia ?R10.13 - Epigastric pain (ICD-10) Chronic low back pain ?M54.50 - Low back pain, unspecified (ICD-10) ?G89.29 - Other chronic pain (ICD-10) Spondylolisthesis of lumbar region ?M43.16 - Spondylolisthesis, lumbar region (ICD-10) Chronic neck pain ?M54.2 - Cervicalgia (ICD-10) ?G89.29 - Other chronic pain (ICD-10) Greater trochanteric bursitis of right hip ?M70.61 - Trochanteric bursitis, right hip (ICD-10) Tendinitis involving right hip abductors ?M76.891 - Other specified enthesopathies of right lower limb, excluding foot (ICD-10) Partial tear of right hamstring ?S76.311A - Strain of muscle, fascia and tendon of the posterior muscle group at thigh level, right thigh, initial encounter (ICD-10) Tear of right gluteus minimus tendon ?S76.011A - Strain of muscle, fascia and tendon of right hip, initial encounter (ICD-10) Right lumbar radiculopathy ?M54.16 - Radiculopathy, lumbar region (ICD-10) Atrial fibrillation ?I48.91 - Unspecified atrial fibrillation (ICD-10) Mitral regurgitation ?I34.0 - Nonrheumatic mitral (valve) insufficiency (ICD-10) Tricuspid regurgitation ?I07.1 - Rheumatic tricuspid insufficiency (ICD-10) Surgical History History of inguinal hernia repair (1982) ?Z98.890 - Other specified postprocedural states (ICD-10) ?Z87.19 - Personal history of other diseases of the digestive system (ICD-10) History of arthroplasty of finger of right hand (10/23/17) ?Z96.691 - Finger-joint replacement of right hand (ICD-10) Family History Mother Heart problem Arthritis Social History (Updated 07/12/24 @ 13:43 by Nina Negro MD) Narrative: Lives with Duglas (POA and medical decision maker if needed), 2 adult children. Retired, no ETOH and nonsmoker. Requests DNR/DNI code status. What is your current living situation?: I presently have a place to live Problems where you live: no known problems Problems where you live details: n/a In the past 12 months, utilities in danger of being shut off: no In past 12 months, lack of transportation kept you from medical appts, meetings, work, or getting things needed for daily living: no In the past 12 mos, have been you worried that your food would run out before you had money to buy more?: never true In the past 12 mos, the food you bought just didn't last and you didn't have money to buy more?: never true Highest level of school completed/degree received: some college, no degree Smoking Status: Never smoker Do you use any of these nicotine containing products: None Second hand tobacco smoke exposure: No How often do you have a drink containing alcohol: never How often do you have six or more drinks on one occasion: Never AUDIT-C Alcohol total score: 0 Non-prescribed substance use: denies use Caffeine: No How often does anyone, including family, friends and others, physically hurt you : never How often does anyone, including family, friends and others, insult or talk down to you: never How often does anyone, including family, friends and others, threaten you with harm: never How often does anyone, including family, friends and others, scream or curse at you: never service: No Meds Home Medications and Allergies Home Medications ?Medication ?Instructions ?Recorded ?Confirmed ?Type acetaminophen 325 mg tablet 325 - 650 mg PO DAILY PRN 09/03/21 07/12/24 History (Tylenol) cetirizine 10 mg tablet 5 mg PO DAILY PRN 09/03/21 07/12/24 History latanoprost 0.005 % eye drops 1 drp ophthalmic (eye) QPM 10/23/22 07/12/24 History levothyroxine 75 mcg tablet 75 mcg PO DAILY #90 tabs 10/13/23 07/12/24 Rx diltiazem HCl 120 mg 120 mg PO Q24H #90 caps 05/25/24 07/12/24 Rx capsule,extended release 24 hr apixaban 5 mg tablet 5 mg PO BID #180 tabs 06/21/24 07/12/24 Rx omeprazole 20 mg capsule,delayed 20 mg PO QAM PRN 06/21/24 07/12/24 History release Allergies Allergy/AdvReac Type Severity Reaction Status Date / Time cortisone Allergy Intermediate Redness of Uncoded 07/06/24 08:51 Skin seasonal Allergy Mild Congested Uncoded 07/06/24 08:51 Exam Narrative: Exam Narrative: GEN: Alert and oriented, nontoxic HEENT: EOMIs bilaterally, no scleral icterus CV: Irregular rhythm, rate 60-70s R: LCTA bilaterally without concerning wheezing, air movement adequate Ab: Soft, no ttp Ext: wwp, no concerning edema Skin: No concerning skin lesions or rashes on exposed skin Neuro: Nonfocal Psych: Appropriate Const: Vital Signs, click to edit/add: Vital Signs - 24 hr 07/12/24 07:06 07/12/24 07:33 07/12/24 08:02 Temperature 96.5 F L Pulse Rate 96 113 H Pulse Rate [Pulse Oximeter] 101 H Respiratory Rate 24 20 13 Blood Pressure 127/66 140/85 H Blood Pressure [Le ft Upper Arm] 142/86 H Pulse Oximetry 97 98 97 Oxygen Delivery Me thod Room Air Oxygen Flow Rate 07/12/24 08:32 07/12/24 08:45 07/12/24 09:02 Temperature Pulse Rate 96 96 118 H Pulse Rate [Pulse Oximeter] Respiratory Rate 12 11 L Blood Pressure 137/81 127/108 H Blood Pressure [Le ft Upper Arm] Pulse Oximetry 98 98 95 Oxygen Delivery Me thod Oxygen Flow Rate 07/12/24 10:26 07/12/24 10:50 07/12/24 10:56 Temperature Pulse Rate 90 80 Pulse Rate [Pulse Oximeter] Respiratory Rate 10 L 24 Blood Pressure 102/65 98/72 Blood Pressure [Le ft Upper Arm] Pulse Oximetry 97 97 96 Oxygen Delivery Me thod Nasal Cannula Oxygen Flow Rate 2 07/12/24 11:01 07/12/24 11:06 07/12/24 11:10 Temperature Pulse Rate 117 H 98 132 H Pulse Rate [Pulse Oximeter] Respiratory Rate 8 L 3 L 30 H Blood Pressure 115/86 118/36 L 95/54 L Blood Pressure [Le ft Upper Arm] Pulse Oximetry 97 98 94 Oxygen Delivery Me thod Nasal Cannula Nasal Cannula Nasal Cannula Oxygen Flow Rate 2 4 2 07/12/24 11:12 07/12/24 11:15 07/12/24 11:17 Temperature Pulse Rate 92 95 78 Pulse Rate [Pulse Oximeter] Respiratory Rate 8 L 14 11 L Blood Pressure 101/66 108/70 Blood Pressure [Le ft Upper Arm] Pulse Oximetry 95 93 95 Oxygen Delivery Me thod Nasal Cannula Room Air Room Air Oxygen Flow Rate 1 07/12/24 11:18 07/12/24 11:32 Temperature Pulse Rate 82 Pulse Rate [Pulse Oximeter] Respiratory Rate 9 L 14 Blood Pressure 116/81 Blood Pressure [Le ft Upper Arm] Pulse Oximetry 94 Oxygen Delivery Me thod Room Air Oxygen Flow Rate Hospitalist - H&P: Result Labs Labs: Short CBC 07/12/24 Range/Units 07:20 WBC 7.91 (4.50-11.00) K/uL Hgb 14.7 (12.0-16.0) gm/dL Hct 44.9 (33.0-51.0) % Plt Count 284 (140-440) K/uL BMP 07/12/24 07:20 Sodium 139 Potassium 3.9 Chloride 106 Carbon Dioxide 26 BUN 20 Creatinine 0.9 Glucose 101 Calcium 9.5 Cardiac Enzymes 07/12/24 Range/Units 07:20 Troponin I < 0.01 (0.01-0.04) ng/mL
--- NOTE | 2024-07-12 14:17 | PC.NURSE ---
Patient admitted from ED following three attempts to cardiovert without success. Patient is transitioning to metoprolol and d/c diltiazem. Patient Independent ambulating. Patient monitored via telemetry and continuous pulse ox.
[2024-07-12] MEDS: LATANOPROST 0.005% OPHTH 1 DROP EYE-BOTH (17:24)
--- NOTE | 2024-07-12 19:28 | PC.NURSE ---
End of shift note: VSS. Afebrile. Metoprolol held for low BP, MD Triana aware. After recheck, BP was 116/99. Denies pain. Denies nausea. Tolerating regular diet. Ambulates SBA in room.
[2024-07-12] MEDS: SODIUM CHLORIDE 0.9 % (FLUSH) 10 ML SYRINGE 5 ML IVF (20:30)
[2024-07-12] MEDS: ACETAMINOPHEN 500 MG TABLET 1000 MG PO (20:30)
[2024-07-12] MEDS: APIXABAN 5 MG TABLET PO (20:30)
[2024-07-13] VITALS (7 sets, daily range): BP systolic 104–123; BP diastolic 55–72; PULSE 72–112; RESP 16–18; TEMP 36.4–36.6; O2SAT 95–96
--- NOTE | 2024-07-13 05:48 | PC.NURSE ---
Addendum entered by Karen Lewis RN 07/13/24 06:30: HR increases to 120's with activity/ambulation. pt SOB, but states this is normal for her. Original Note: [id number] Pt slept well during night, ambulated halls x1 in the evening, SOB with activity, pt states she was at her baseline with this. did not meet criteria for metoprolol for the last 3 doses, tele showing A-fib rate controlled entire shift. pt acknowledges light headed/dizziness, but again, states she has a hx of vertigo and she is at baseline. no N/V, denied chest pain or headache this shift. voiding without difficulty and tolerating PO intake.
[2024-07-13] MEDS: LEVOTHYROXINE 75 MCG TABLET PO (06:24)
[2024-07-13 06:53] LABS: Basophils Absolute Auto 0.02 K/uL (0.00-0.30); Basophils Percent Auto 0.2 % (0.0-3.0); Eosinophils Percent Auto 2.4 % (0.0-7.0); Hematocrit 43.3 % (33.0-51.0); Hemoglobin* 14.2 gm/dL (12.0-16.0); Immature Granulocytes Abs Auto 0.01 K/uL (0.00-0.30); Immature Granulocytes Pct Auto 0.1 %; Lymphocytes Absolute Auto 2.09 K/uL (0.90-2.90); Lymphocytes Percent Auto 25.2 % (20-44); Mean Corpuscular HGB Conc 33 gm/dL (32-36); Mean Corpuscular Hemoglobin 29 pg (26-34); Mean Corpuscular Volume 88 fL (80-100); Monocytes Percent Auto 7.4 % (0.0-11.0); Neutrophils Absolute Auto 5.36 K/uL (1.7-7.0); Neutrophils Percent Auto 64.7 % (42.0-72.0); Platelet Count* 296 K/uL (140-440); RDW Coefficient of Variation % 12.9 % (11.5-15.5); Red Blood Count 4.91 m/uL (4.00-5.20); White Blood Count* 8.29 K/uL (4.50-11.00)
[2024-07-13 07:08] LABS: Chloride* 107 mmol/L (96-114); Potassium* 3.9 mmol/L (3.6-5.1); Sodium* 140 mmol/L (135-149)
[2024-07-13 07:11] LABS: Anion Gap 7 mEq/L (7-15); Blood Urea Nitrogen* 22 mg/dL (7-30); Carbon Dioxide* 26 mmol/L (20-32); Creatinine* 0.9 mg/dL (0.5-1.5); Est. Creatinine Clearance* 38.75; Estimated Glomerular Filt Rate 65 ml/min; Glucose* 102 mg/dL (60-115); Magnesium* 2.1 mg/dL (1.5-2.6); Slide Review Reflex No
[2024-07-13] MEDS: APIXABAN 5 MG TABLET PO ×2 (08:27→19:35)
[2024-07-13] MEDS: METOPROLOL SUCCINATE (XL) 25 MG TAB PO (08:27)
[2024-07-13] MEDS: SODIUM CHLORIDE 0.9 % (FLUSH) 10 ML SYRINGE 5 ML IVF (08:28)
--- NOTE | 2024-07-13 10:40 | PM.IMPN1 ---
Assessment and Plan Assessment and plan (1) Atrial fibrillation with rapid ventricular response: Problem comment: - first diagnosed 04/2024, Diltiazem and Eliquis initiated at that time - poor rate control upon ER presentation 07/12/24, attempted cardioversion was unsuccessful thrice - Cardiology recommended transition to Metoprolol from Diltiazem, unable to receive regular dosing of Metoprolol IR 2/2 hypotension - initiated ER Metoprolol 07/13; given hypotension and persistent HR >100, requires another day in the hospital for monitoring/telemetry Status: Acute (2) Hypothyroidism: Problem comment: - on levothyroxine, will continue - TSH 4.73 on 07/12 Status: Acute (3) Tricuspid regurgitation: Problem comment: - Moderate tricuspid regurgitation noted by ECHO 06/18 (done for new atrial fibrillation) with mildly increased pulmonary pressures Status: Acute Plan - per above - SCDs, ambulation, PPI, po intake for ppx - likely home tomorrow - updated bedside, questions answered Subjective Date Seen: 07/13/24 Interval history: Shari was admitted to the hospital yesterday for chest discomfort in the setting of a fib with RVR. Since admission, transitioned from Cardizem to Metoprolol (was unable to receive her IR Metoprolol overnight 2/2 hypotension). This morning, had her first dose of 25mg ER Metoprolol. No new lightheadedness or dizziness. Chest pain has resolved. Was hoping to go home today, but in light of not receiving her IR metoprolol, is agreeable to stay while we confirm she tolerates ER metoprolol. Heart rate has been variable (90-110s), labs reassuring. Stable on room air. Has an appt with Dr. Walker of Cardiology on 07/22. Exam Narrative: Exam Narrative: GEN: Alert and oriented, sitting comfortably in bedside chair HEENT: EOMIs bilaterally, no scleral icterus CV: Rate 80s during my exam, irregular rhythm R: LCTA bilaterally without concerning wheezing Ext: wwp, no concerning edema Skin: No concerning skin lesions or rashes on exposed skin Neuro: Nonfocal Psych: Appropriate Const: Vital Signs, click to edit/add: Vital Signs - 24 hr 07/12/24 10:50 07/12/24 10:56 07/12/24 11:01 Temperature Pulse Rate 80 117 H Pulse Rate [Right Pulse Oximeter] Respiratory Rate 24 8 L Blood Pressure 98/72 115/86 Blood Pressure [Ri ght Arm] Pulse Oximetry 97 96 97 Oxygen Delivery Me thod Nasal Cannula Nasal Cannula Oxygen Flow Rate 2 2 07/12/24 11:06 07/12/24 11:10 07/12/24 11:12 Temperature Pulse Rate 98 132 H 92 Pulse Rate [Right Pulse Oximeter] Respiratory Rate 3 L 30 H 8 L Blood Pressure 118/36 L 95/54 L 101/66 Blood Pressure [Ri ght Arm] Pulse Oximetry 98 94 95 Oxygen Delivery Me thod Nasal Cannula Nasal Cannula Nasal Cannula Oxygen Flow Rate 4 2 1 07/12/24 11:15 07/12/24 11:17 07/12/24 11:18 Temperature Pulse Rate 95 78 82 Pulse Rate [Right Pulse Oximeter] Respiratory Rate 14 11 L 9 L Blood Pressure 108/70 Blood Pressure [Ri ght Arm] Pulse Oximetry 93 95 94 Oxygen Delivery Me thod Room Air Room Air Room Air Oxygen Flow Rate 07/12/24 11:32 07/12/24 11:45 07/12/24 12:20 Temperature 97.6 F Pulse Rate Pulse Rate [Right Pulse Oximeter] 79 Respiratory Rate 14 16 16 Blood Pressure 116/81 Blood Pressure [Ri ght Arm] 115/72 Pulse Oximetry 99 99 Oxygen Delivery Me thod Room Air Room Air Oxygen Flow Rate 1 1 07/12/24 12:54 07/12/24 15:00 07/12/24 15:00 Temperature 98.1 F Pulse Rate 76 Pulse Rate [Right Pulse Oximeter] 74 74 Respiratory Rate 16 16 Blood Pressure Blood Pressure [Ri ght Arm] 112/51 L Pulse Oximetry 96 Oxygen Delivery Me thod Room Air Oxygen Flow Rate 07/12/24 15:00 07/12/24 17:30 07/12/24 18:30 Temperature 97.5 F L Pulse Rate 89 Pulse Rate [Right Pulse Oximeter] 76 Respiratory Rate 16 Blood Pressure Blood Pressure [Ri ght Arm] 85/50 L 116/99 H Pulse Oximetry 96 Oxygen Delivery Me thod Oxygen Flow Rate 07/12/24 19:00 07/12/24 23:00 07/12/24 23:00 Temperature 97.7 F 97.7 F Pulse Rate Pulse Rate [Right Pulse Oximeter] 94 81 92 Respiratory Rate 16 16 Blood Pressure Blood Pressure [Ri ght Arm] 103/65 100/57 L Pulse Oximetry 95 92 Oxygen Delivery Me thod Room Air Room Air Oxygen Flow Rate 0 0 07/12/24 23:00 07/13/24 03:00 07/13/24 05:00 Temperature Pulse Rate 88 Pulse Rate [Right Pulse Oximeter] 77 Respiratory Rate 16 Blood Pressure Blood Pressure [Ri t Arm] 117/72 105/64 Pulse Oximetry 96 Oxygen Delivery Me thod Room Air Oxygen Flow Rate 0 07/13/24 07:00 07/13/24 09:25 Temperature Pulse Rate Pulse Rate [Right Pulse Oximeter] 103 H 72 Respiratory Rate 18 Blood Pressure [facility] 118/55 L 104/63 Pulse Oximetry 96 Oxygen Delivery Me thod Room Air Oxygen Flow Rate Labs Labs: Laboratory Results - last 24 hr 07/12/24 07/12/24 07/13/24 07:20 12:18 06:31 WBC 8.29 RBC 4.91 Hgb 14.2 Hct 43.3 MCV 88 MCH 29 MCHC 33 RDW Coeff of Dominique 12.9 Plt Count 296 Neut % (Auto) 64.7 Lymph % (Auto) 25.2 Rush % (Auto) 7.4 Eos % (Auto) 2.4 Baso % (Auto) 0.2 Neut # (Auto) 5.36 Lymph # (Auto) 2.09 Rush # (Auto) 0.60 Eos # (Auto) 0.20 Baso # (Auto) 0.02 Abs Immat Gran (auto) 0.01 Imm/Tot Granulo (auto) 0.1 Sodium 140 Potassium 3.9 Chloride 107 Carbon Dioxide 26 Anion Gap 7 BUN 22 Creatinine 0.9 Estimated Creat Clear 38.75 Estimated GFR 65 Glucose 102 Calcium 9.0 Magnesium 2.1 TSH 4.730 H Lab Acknowledgement Test Added
[2024-07-13] MEDS: ACETAMINOPHEN 500 MG TABLET 1000 MG PO (12:18)
[2024-07-13] MEDS: METOPROLOL TARTRATE 25 MG TABLET 12.5 MG PO ×2 (12:36→19:25)
--- NOTE | 2024-07-13 14:49 | PC.NURSE ---
Pt doing well today. Intermittently tachycardic, continues to be in Afib on tele monitor. BP's are stable. Pt states she feels she is at her baseline. Tolerating ambulation in the padilla well. is at bedside. Resting well at this time.
[2024-07-13] MEDS: LATANOPROST 0.005% OPHTH 1 DROP EYE-BOTH (19:32)
[2024-07-14 00:15] VITALS: BP 128/62; PULSE 74; RESP 16; TEMP 36.5; O2SAT 96
[2024-07-14 00:23] VITALS: PULSE 79
[2024-07-14 02:35] VITALS: BP 134/61; PULSE 69; RESP 22; TEMP 36.2; O2SAT 98
[2024-07-14] MEDS: LEVOTHYROXINE 75 MCG TABLET PO (06:16)
--- NOTE | 2024-07-14 06:39 | PC.NURSE ---
End of shift [id number]: A&O pleasant and cooperative. VSS. converted to NSR w/ BBB. denies pain. up at radha in room. using call light appropriately.
[2024-07-14 06:41] VITALS: PULSE 67
[2024-07-14 07:00] VITALS: BP 130/55; PULSE 62; RESP 18; TEMP 36.4; O2SAT 98
--- NOTE | 2024-07-14 07:08 | PM.DS1 ---
DS: Providers Provider Date Seen: 07/14/24 Date of admission: 07/13/24 10:40 Primary care physician: Karuna Farfan MD Admitting Clinician: Nina Negro MD Attending Physician on discharge: Nina Negro MD Date of Discharge: 07/14/24 DS: Diagnosis Discharge Diagnosis (1) Atrial fibrillation with rapid ventricular response: Status: Acute Problem details: - first diagnosed 04/2024, Diltiazem and Eliquis initiated at that time - poor rate control upon ER presentation 07/12/24, attempted cardioversion was unsuccessful thrice - Cardiology recommended transition to Metoprolol from Diltiazem, unable to receive regular dosing of Metoprolol IR 2/2 hypotension - initiated ER Metoprolol 07/13; given hypotension and persistent HR >100, required another day in the hospital for monitoring. During this time, did require an extra dose of IR Metoprolol for rate control - discharging on Metoprolol ER with pill in the pocket Metoprolol IR - f/u scheduled with Cardiology 07/22 (2) Tricuspid regurgitation: Status: Acute Problem details: - Moderate tricuspid regurgitation noted by ECHO 06/18 (done for new atrial fibrillation) with mildly increased pulmonary pressures (3) Mitral regurgitation: Status: Acute Problem details: - Mild to moderate mitral regurgitation seen by ECHO 06/18 (at time of new onset atrial fibrillation) (4) Hypothyroidism: Status: Acute Problem details: - on levothyroxine, will continue - TSH 4.73 on 07/12 DS: Summary Hospital Course Hospital Course: Shari was admitted to the hospital on 07/12 for chest discomfort in the setting of a fib with RVR. During stay, transitioned from Cardizem to Metoprolol; attempt was made to schedule IR metoprolol, but did not receive this consistently secondary to hypotension. Ultimately, initiated 25 mg of R Metoprolol daily and tolerated this well. Did have occasional heart rates of >100, treated with IR metoprolol. History of chronic lightheadedness/dizziness, did not worsen during stay. Chest pain resolved, serial troponins negative, no acute changes to EKG (a fib, RBBB - chronic). Medically stable for d/c home on 07/14/24; has an appt with Dr. Walker of Cardiology scheduled on 07/22. Status at Discharge Functional status at discharge: independent ambulation Overall status at discharge: patient is back to baseline Time Spent with Patient Time attestation: Total time spent providing and/or coordinating discharge services: Time spent: Greater than 30 minutes Specific discharge activities: Medication reconciliation, patient education, multidisciplinary team discussion Exam Narrative: Exam Narrative: GEN: Alert and oriented, sitting comfortably in bedside chair HEENT: Normal external ears, EOMIs bilaterally, no scleral icterus CV: Irregular, rate in the 60s R: LCTA bilaterally without concerning wheezing, air movement adequate Ext: wwp, no concerning edema Skin: No concerning skin lesions or rashes on exposed skin Neuro: Nonfocal Psych: Appropriate Const: Vital Signs, click to edit/add: Vital Signs - 24 hr 07/13/24 09:25 07/13/24 12:05 07/13/24 15:00 Temperature 97.8 F 97.5 F L Pulse Rate Pulse Rate [Right Pulse Oximeter] 72 104 H 87 Respiratory Rate 18 18 Blood Pressure [Ri ght Arm] 104/63 109/62 123/71 Pulse Oximetry 95 96 Oxygen Delivery Me thod Room Air Room Air Oxygen Flow Rate 0 07/13/24 15:00 07/13/24 15:00 07/13/24 19:00 Temperature 97.6 F Pulse Rate 97 Pulse Rate [Right Pulse Oximeter] 87 112 H Respiratory Rate 18 18 Blood Pressure [Ri ght Arm] 118/60 Pulse Oximetry 96 Oxygen Delivery Me thod Room Air Oxygen Flow Rate 0 07/14/24 00:15 07/14/24 00:23 07/14/24 02:35 Temperature 97.7 F 97.2 F L Pulse Rate 79 Pulse Rate [Right Pulse Oximeter] 74 69 Respiratory Rate 16 22 Blood Pressure [Ri ght Arm] 128/62 134/61 Pulse Oximetry 96 98 Oxygen Delivery Me thod Room Air Room Air Oxygen Flow Rate 07/14/24 06:41 Temperature Pulse Rate Pulse Rate [Right Pulse Oximeter] 67 Respiratory Rate Blood Pressure [Ri ght Arm] Pulse Oximetry Oxygen Delivery Me thod Oxygen Flow Rate DS: Data Data Completed and Pending Labs on day of discharge: Labs from last 24 hours 07/13/24 06:31 WBC 8.29 RBC 4.91 Hgb 14.2 Hct 43.3 MCV 88 MCH 29 MCHC 33 RDW Coeff of Dominique 12.9 Plt Count 296 Neut % (Auto) 64.7 Lymph % (Auto) 25.2 [place] % (Auto) 7.4 Eos % (Auto) 2.4 Baso % (Auto) 0.2 Neut # (Auto) 5.36 Lymph # (Auto) 2.09 [place] # (Auto) 0.60 Eos # (Auto) 0.20 Baso # (Auto) 0.02 Abs Immat Gran (auto) 0.01 Imm/Tot Granulo (auto) 0.1 Sodium 140 Potassium 3.9 Chloride 107 Carbon Dioxide 26 Anion Gap 7 BUN 22 Creatinine 0.9 Estimated Creat Clear 38.75 Estimated GFR 65 Glucose 102 Calcium 9.0 Magnesium 2.1 Discharge Plan Discharge Disposition: Home, Self-Care Date of Admission: 07/13/24 10:40 Attending Provider on Discharge: Nina Negro Primary Care Provider: Karuna Farfan Condition: Improved Anticipated Discharge Date/Time: 07/14/24 07:07 Discharge Medications: New metoprolol succinate 25 mg Tablet Extended Release 24 Hr 25 mg PO DAILY Qty: 30 0RF metoprolol tartrate 25 mg tablet 12.5 mg PO Q6H PRNQty: 10 0RF Rx Instructions: as needed for HR that is consistently >100 Continued levothyroxine 75 mcg tablet 75 mcg PO DAILY Qty: 90 3RF cetirizine 10 mg tablet 5 mg PO DAILY PRN acetaminophen [Tylenol] 325 mg tablet 325 - 650 mg PO DAILY PRN latanoprost 0.005 % drops 1 drp ophthalmic (eye) QPM omeprazole 20 mg capsule,delayed release(DR/EC) 20 mg PO QAM PRN apixaban 5 mg tablet 5 mg PO BID Qty: 180 3RF Discontinued diltiazem HCl 120 mg capsule,extended release 24hr 120 mg PO Q24H Qty: 90 0RF Discharge Orders: Discharge Order (Routine); Ordered 07/14/24 Ordered By: Nina Negro Patient Education: Metoprolol (By mouth), A-fib (Atrial Fibrillation) (DC) Additional Instructions: 1. STOP your Diltiazem 2. START Metoprolol Succinate (LONG acting medication) 25mg every morning. 3. You also have a small prescription of Metoprolol Tartrate (SHORT acting medication) to use as needed if you notice that your heart rate is greater than 100 at rest - to check your heart rate, find your pulse and count for 30 seconds, multiply x2 No other changes to home medications. Keep appointment with Cardiology next week. Activity Level: Activity as Tolerated Discharge Diet: Regular Follow Up Appointments: Karuna Farfan MD [Primary Care Provider, Internal Medicine] - 07/26/24 9:30 am Referral Note: [facility] for follow-up, and cardiology f/u 07/22. Forms: [employer] Info Instructions
[2024-07-14] MEDS: APIXABAN 5 MG TABLET PO (08:26)
[2024-07-14] MEDS: METOPROLOL SUCCINATE (XL) 25 MG TAB PO (08:27)
[2024-07-14] MEDS: SODIUM CHLORIDE 0.9 % (FLUSH) 10 ML SYRINGE 5 ML IVF (08:27)
--- NOTE | 2024-07-14 10:09 | PC.NURSE ---
Discharge: Patient pleasant and cooperative, A&O. VSS, afebrile. SpO2 maintained above 90% on RA. Independent in room. IV removed with tip intact. Discharge instructions provided, all questions answered. Discharged to home via wheelchair with daughter.
== END 2024-07-14 09:35 | disposition home or self-care (01) | DRG 310 ==
LOC: ED 11:19 → MEDSURG 11:43
PROVIDERS: Student in an Organized Health Care Education/Training Program; Admitting Provider Family Medicine; Emergency Provider Family Medicine; PCP Internal Medicine; Visit Provider Family Medicine
DX: I48.91 Unspecified atrial fibrillation (principal); I95.9 Hypotension, unspecified; R42 Dizziness and giddiness; Z79.01 Long term (current) use of anticoagulants; I08.1 Rheumatic disorders of both mitral and tricuspid valves; I45.2 Bifascicular block; R07.9 Chest pain, unspecified; M54.16 Radiculopathy, lumbar region; M43.16 Spondylolisthesis, lumbar region; G89.29 Other chronic pain; I45.10 Unspecified right bundle-branch block; E03.9 Hypothyroidism, unspecified; H40.9 Unspecified glaucoma
CPT/HCPCS: 92960; 00410; 36415; 71046; 80048; 83735; 83880; 84443; 84484; 85025; 85379; 87631; 93005; 94761; 99100; 99140; 99284; 99291; A9270; G0378; J7050

== ENCOUNTER 2024-08-30 09:12 | Inpatient (IN) | payer MEDICARE, BC, SELFPAY ==
[2024-08-30] VITALS (24 sets, daily range): BP systolic 97–123; BP diastolic 42–83; PULSE 94–125; RESP 14–32; TEMP 36.5–37; O2SAT 91–97; BMI 27.5; BMI 27.1
--- OUTSIDE RECORDS SUMMARY | 2024-08-30 09:15 | XMS_ITS | Clinical Summary ---
Author Organization [employer] [facility] Address On license of [facility] [place] [address] Care Team Providers Care Systems Operator Name Role Phone Karuna Farfan MD Primary Care Provider [phone] Allergies Active Allergy Reactions Criticality Noted Date Comments Cortisone Rash High 04/26/2024 face Medications levothyroxine 75 mcg tablet Take 1 Tablet by mouth once daily. 5 Active latanoprost 0.005 % ophthalmic solution Place 1 Drop into both eyes once daily in the evening. 5 Active omeprazole 20 mg Delayed-Release capsule Take 20 mg by mouth once daily before a meal. 5 Active Eliquis 5 mg tablet Take 1 Tablet by mouth two times daily. Active metoprolol succinate 25 mg Sustained-Relea se tablet Take 25 mg by mouth two times daily. 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 / Pt states feeling well, PCP increased her metoprolol. ) 08/04/2024 Travel 07/22/2024 10:00 AM CDT Office Visit [facility] [address] [place] [address] Luís Walker MD 06/07/2024 10:00 AM CDT Ancillary Procedure [facility] [address] [place] [address] from Last 3 Months Social History Tobacco Use Types Packs/Day Years Used Date Smoking Tobacco: Former Cigarettes Smokeless Tobacco: Never Tobacco Cessation:Counseling Given: Not Answered Comments:Smoked for 1-2 years when she was [age]. 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 Gender Identity Not on file Sexual Orientation Not on file Obstetrics History Last Filed Vital Signs Vital Sign Reading Time Taken Comments Blood Pressure 150/80 08/05/2024 9:30 AM CDT Pulse 53 08/05/2024 9:30 AM CDT Temperature - - Respiratory Rate - - Oxygen Saturation 96% 08/05/2024 9:30 AM CDT Inhaled Oxygen Concentration - - Weight 72.8 kg (160 lb 6.4 oz) 08/05/2024 9:30 A M CDT Height 162.6 cm (5' 4) 08/05/2024 9:30 AM CDT Body Mass Index 27.53 08/05/2024 9:30 AM CDT Plan of Treatment Health Maintenance Due Date Last Done Comments Tetanus booster 05/10/1956 Depression screening for age 12+ 1956 Pneumococcal series for age 50+ (1 of 2 - PCV) 05/10/1963 Zoster (shingles) series for age 50+ (1 of 2) 1994 DEXA/DXA scan for age 65+ 2009 Medicare Wellness for age 65+ 2009 RSV vaccine for adults or (1 - 1-dose 75+ series) 05/10/2019 COVID-19 vaccine series ( season) 2024 12/03/2023, 12/14/2020, 04/29/2020, Additional history exists Influenza Vaccine (#1) 2024 BMI (ht and wt on same day) for age 18+ 08/05/2025 08/05/2024 Hepatitis B series for 19+ Aged Out N o longer eligible based on patient's age to complete this topic Procedures Procedure Name Priority Date/Time Associated Diagnosis Comments EXTENDED HOLTER Routine 07/22/2024 Unspecified atrial fibrillation (HC) ECHO TTE COMPLETE WO CONTRAST Routine 06/07/2024 10:44 AM CDT Unspecified atrial fibrillation (HC) from Last 3 Months Results * EXTENDED HOLTER (07/22/2024) Luís Walker MD CARDIAC SERVICES ORD Rachel l Result * ECHO TTE COMPLETE WO CONTRAST (06/07/2024 [...] BSA: 1.80 m Weight: 74.00 kg Tech: [facility] Referring MD: KARUNA FARFAN Site: [facility] Reading Location: Mobile-OP [...] . This study was interpreted by an [facility] accredited facility. CC: [facility] (formerly [facility]) [facility]. Final Procedure Note Luís Walker MD - 06/07/2024 ECHOCARDIOGRAM SHARI WARE : 1945 79 years Study Date: 06/07/2024 10:13:04 AM Gender: F BP: 155/81 mmHg Height: 163.00 cm BSA: 1.80 m Weight: 74.00 kg Tech: [facility] Referring MD: KARUNA FARFAN Site: [facility] Reading Location: Mobile-OP [...] interpreted by an [facility] accredited facility. CC: [facility] (med records) [facility]. Final Karuna Farfan MD ECHO ORD Final Resu lt from Last 3 Months Insurance MEDICARE PART B HB ONLY MEDICARE PB ONLY [facility] Care Teams Systems Operator Relationship Specialty Start Date End Date Karuna Farfan MD [address] [place] [id number] PCP - General Internal Medicine 08/05/24
--- NOTE | 2024-08-30 09:52 | CRLHL7_ITS ---
For Patients: As a result of the Century Cures Act, medical imaging exams and procedure reports are released immediately into your electronic medical record. You may view this report before your referring provider. If you have questions, please contact your health care provider. Indication: Shortness of breath, chest pain and cough Technique: Chest 2 views Comparison: Chest x-ray 07/12/2024 Findings/Impression: Cardiovascular and mediastinum: Marked globular cardiomegaly with atherosclerotic calcification. Some increase in heart size compared to the prior examination which may represent congestive failure or pericardial effusion. Lungs and pleural spaces: Trace blunting of the left lateral costophrenic angle consistent with a minimal effusion. No pneumothorax or focal consolidation. Bones and soft tissues: Degenerative disc disease thoracic spine. Dictated by Umesh Hannon MD @ 08/30/2024 10:27:14 AM (Electronically Signed)
--- NOTE | 2024-08-30 10:10 | ED_ITS ---
HPI - General Adult General Chief complaint: Shortness of Breath/Dyspnea Stated complaint: shortness of breat and chest pain Time Seen by Provider: 08/30/24 09:35 Source: patient Mode of arrival: ambulatory Limitations: no limitations History of Present Illness HPI narrative: 79-year-old female presenting today with shortness of breath, cough, fatigue for the last 4 days. States that she has had a decreased appetite, has been lying in bed most of the time. She feels short of breath. She endorses increased chest pressure which is not necessarily new for her. Elevated temperatures of 100.1 two days ago, 99.1 yesterday. States that 7 days ago she had to urinate every hour overnight, but has not had anything like that since. Denies any dysuria. No blood in her urine. Denies diarrhea or constipation. States that she has noticed that her pulse has been faster recently, took an extra half metoprolol yesterday which did not seem to help. Related Data Home Medications ?Medication ?Instructions ?Recorded ?Confirmed acetaminophen 325 mg tablet 325 - 650 mg PO DAILY PRN 09/03/21 08/30/24 (Tylenol) cetirizine 10 mg tablet 5 mg PO DAILY PRN 09/03/21 0 08/30/24 latanoprost 0.005 % eye drops 1 drp ophthalmic (eye) Q PM 10/23/22 08/30/24 omeprazole 20 mg capsule,delayed 20 mg PO QAM PRN 05/2608/30/24 release Previous Rx's ?Medication ?Instructions ?Recorded levothyroxine 75 mcg tablet 75 mcg PO DAILY #90 tabs 0 10/13/23 apixaban 5 mg tablet 5 mg PO BID #180 tabs metoprolol tartrate 25 mg tablet 12.5 mg (1/2 x 25 mg) PO Q6H PRN 07/14/24 #10 tabs metoprolol succinate 25 mg 50 mg (2 x 25 mg) PO DAILY #90 tabs 08/02/24 tablet,extended release 24 hr Allergies Allergy/AdvReac Type Severity Reaction Status Date / Time cortisone Allergy Intermediate Redness of Uncoded 07/26/24 09:33 Skin seasonal Allergy Mild Congested Uncoded 07/26/24 09:33 Review of Systems Status of ROS: Reports: 10 or more systems reviewed and unremarkable except as noted in History and below [facility] Medical History Hypothyroidism ?E03.9 - Hypothyroidism, unspecified (ICD-10) Surgical History History of inguinal hernia repair (1982) ?Z98.890 - Other specified postprocedural states (ICD-10) ?Z87.19 - Personal history of other diseases of the digestive system (ICD-10) History of arthroplasty of finger of right hand (10/23/17) ?Z96.691 - Finger-joint replacement of right hand (ICD-10) Family History Mother Heart problem Arthritis Social History Narrative: Lives with Duglas (POA and medical decision maker if needed), 2 adult children. Retired, no ETOH and nonsmoker. Requests DNR/DNI code status. What is your current living situation?: I presently have a place to live Problems where you live: no known problems Problems where you live details: n/a In the past 12 months, utilities in danger of being shut off: no In past 12 months, lack of transportation kept you from medical appts, meetings, work, or getting things needed for daily living: no In the past 12 mos, have been you worried that your food would run out before you had money to buy more?: never true In the past 12 mos, the food you bought just didn't last and you didn't have money to buy more?: never true Highest level of school completed/degree received: some college, no degree Smoking Status: Never smoker Do you use any of these nicotine containing products: None Second hand tobacco smoke exposure: No How often do you have a drink containing alcohol: never How often do you have six or more drinks on one occasion: Never AUDIT-C Alcohol total score: 0 Non-prescribed substance use: denies use Caffeine: No How often does anyone, including family, friends and others, physically hurt you : never How often does anyone, including family, friends and others, insult or talk down to you: never How often does anyone, including family, friends and others, threaten you with harm: never How often does anyone, including family, friends and others, scream or curse at you: never service: No Exam Narrative: Exam Narrative: Well-nourished well-developed patient in no acute distress. Alert and oriented x3. Answers questions appropriately. Mood and affect are appropriate. Thoughts are goal oriented and rational. No tangential or magical thinking noted. Patient has a hard time completing a full sentence without needing to catch her breath. HEENT: Normocephalic atraumatic. Pupils are equally round reactive to light. Extraocular muscles are intact. Conjunctivae are moist without any icterus noted. Dry mucous membranes. Posterior pharynx is normal. Neck is soft without any lymphadenopathy or thyromegaly. No masses are appreciated. Cardiovascular: Irregularly irregular rhythm. Lungs: Clear to auscultation bilaterally no wheezes rhonchi or rales are appreciated. Patient takes deep breaths without any discomfort. Abdomen: Soft and nontender nondistended with normal bowel sounds. Extremities: Bilateral lower extremities are without edema. Skin: Well perfused without any obvious rashes. Const: Vital Signs, click to edit/add: Vital Signs - 24 hr 08/30/24 09:15 08/30/24 10:47 08/30/24 10:48 Temperature 98.2 F Pulse Rate 103 H 107 H Pulse Rate [Right Pulse Oximeter] 117 H Respiratory Rate 18 16 19 Blood Pressure 113/78 Blood Pressure [Ri ght Upper Arm] 121/59 L Pulse Oximetry 97 95 96 Oxygen Delivery Mt thod Room Air 08/30/24 11:00 08/30/24 11:02 08/30/24 11:15 Temperature Pulse Rate 102 H 94 106 H Pulse Rate [Right Pulse Oximeter] Respiratory Rate 17 18 15 Blood Pressure 111/59 L Blood Pressure [Ri ght Upper Arm] Pulse Oximetry 95 95 94 Oxygen Delivery Me thod 08/30/24 11:22 Temperature Pulse Rate 103 H Pulse Rate [Right Pulse Oximeter] Respiratory Rate 20 Blood Pressure 115/66 Blood Pressure [Ri ght Upper Arm] Pulse Oximetry 94 Oxygen Delivery Me thod Course Course ED Course: EKG, read by me, shows atrial fibrillation with a pulse of 111. Left axis deviation, right bundle-branch block. None of these findings are new. Patient is anticoagulated. IV is established and patient is started with a L of normal saline over 2 hours. Chest x-ray, read by me, shows cardiomegaly. Minimal pleural effusions. After 500 mL, pulse did not respond. Because of elevated BNP and mild pleural effusions we did stop fluids after 500 mL. Blood work shows elevated CRP. UA grossly positive for evidence of infection. BNP elevated at over 4,600. Discussed patient with Dr. Flores, who will accept the patient for admission at this time. One dose of IV metoprolol and IV zosyn given before transfer to the floor. Vital Signs Vital signs: Initial Vital Signs Temperature 98.2 F 08/30/24 09:15 Temperature Source Temporal Artery Scan 08/30/24 09:15 Pulse Rate 117 H 08/30/24 09:15 Pulse Rhythm Regularly Irregular 08/30/24 09:15 Pulse Strength 3+ Normal 08/30/24 09:15 Respiratory Rate 18 08/30/24 09:15 Blood Pressure 121/59 L 08/30/24 09:15 Blood Pressure Mean 79 08/30/24 09:15 Blood Pressure Position Sitting 08/30/24 09:15 Pulse Oximetry 97 08/30/24 09:15 Oxygen Delivery Method Room Air 08/30/24 09:15 Vital Signs Temperature 98.2 F 08/30/24 09:15 Pulse Rate 117 H 08/30/24 09:15 Respiratory Rate 18 08/30/24 09:15 Blood Pressure 121/59 L 08/30/24 09:15 Pulse Oximetry 97 08/30/24 09:15 Oxygen Delivery Method Room Air 08/30/24 09:15 Temperature 98.2 F 08/30/24 09:15 Pulse Rate 103 H 08/30/24 11:22 Respiratory Rate 20 08/30/24 11:22 Blood Pressure 115/66 08/30/24 11:22 Pulse Oximetry 94 08/30/24 11:22 Oxygen Delivery Method Room Air 08/30/24 09:15 Medications Administered Medications: Discontinued Medications Generic Name Dose Route Start Last Admin Trade Name Freq PRN Reason Stop Dose Admin Sodium Chloride 1,000 mls @ 500 mls/hr 08/30/24 09:53 08/30/24 11:17 0.9 % Sodium Chloride 1000 Ml IV 08/30/24 11:52 Infused .Q2H ADITHYA Infusion Medical Decision Making MDM Narrative Medical decision making narrative: 79-year-old female with UTI, AFib with RVR, congestive heart failure-presenting with shortness of breath. Patient will be admitted for further management. Lab Data Lab results reviewed: Yes I reviewed the patient's lab results Labs: Lab Results 08/30/24 08/30/24 Range/Units 10:10 10:20 WBC 10.52 (4.50-11.00) K/uL RBC 4.41 (4.00-5.20) m/uL Hgb 12.5 (12.0-16.0) gm/dL Hct 38.4 (33.0-51.0) % MCV 87 (80-100) fL MCH 28 (26-34) pg MCHC 33 (32-36) gm/dL RDW Coeff of Dominique 12.6 (11.5-15.5) % Plt Count 301 (140-440) K/uL Neut % (Auto) 81.1 H (42.0-72.0) % Lymph % (Auto) 9.5 L (20-44) % [place] % (Auto) 8.8 (0.0-11.0) % Eos % (Auto) 0.3 (0.0-7.0) % Baso % (Auto) 0.1 (0.0-3.0) % Neut # (Auto) 8.50 H (1.7-7.0) K/uL Lymph # (Auto) 1.00 (0.90-2.90) K/uL [place] # (Auto) 0.90 (0.00-0.90) K/UL Eos # (Auto) 0.03 (0.00-0.50) K/uL Baso # (Auto) 0.01 (0.00-0.30) K/uL Abs Immat Gran (auto) 0.02 (0.00-0.30) K/uL Imm/Tot Granulo (auto) 0.2 % Sodium 135 (135-149) mmol/L Potassium 4.1 (3.6-5.1) mmol/L Chloride 101 (96-114) mmol/L Carbon Dioxide 25 (20-32) mmol/L Anion Gap 9 (7-15) mEq/L BUN 17 (7-30) mg/dL Creatinine 1.0 (0.5-1.5) mg/dL Estimated Creat Clear 38.75 Estimated GFR 57 ml/min Glucose 99 (60-115) mg/dL Lactate 1.0 (0.5-1.9) mmol/L Calcium 8.7 (8.4-10.6) mg/dL Magnesium 2.0 (1.5-2.6) mg/dL Total Bilirubin 1.1 (0.1-1.5) mg/dL Direct Bilirubin 0.2 (0.0-0.5) mg/dL AST 34 (12-35) U/L ALT 21 (4-35) U/L Alkaline Phosphatase 78 (40-150) U/L Troponin I < 0.01 (0.01-0.04) ng/mL C-Reactive Protein 16.9 H (0.5-1.0) mg/dL NT-Pro-B Natriuret Pep 4660 H (See Note) pg/mL Total Protein 7.1 (6.0-8.3) g/dL Albumin 3.9 (3.3-5.0) g/dL Urine Color Yellow (Yellow) Urine Appearance Clear (Clear) Urine pH 5.5 (5.0-8.5) Ur Specific [place] 1.015 (1.000-1.030) Urine Protein 1+ A (Negative) Urine Glucose (UA) Negative (Negative) Urine Ketones 1+ A (Negative) Urine Blood 3+ A (Negative) Urine Nitrite Negative (Negative) Urine Bilirubin 1+ A (Negative) Urine Urobilinogen 1.0 (0.2-1.0) Ur Leukocyte Esterase 1+ A (Negative) Urine RBC 2-5 A (0-2) Urine WBC 10-25 A (0-5) Ur Squamous Epith Cells Moderate A (None-Few) Urine Bacteria Moderate A (None) Urine Yeast Moderate A (None) SARS-CoV-2 (PCR) Negative SARS-CoV-2 (Negative) Monoscreen Negative (Negative) Influenza Type A (PCR) Negative PCR FLU A (Negative) Influenza Type B (PCR) Negative PCR FLU B (Negative) RSV (PCR) Negative PCR RSV (Negative) Imaging Data Chest x-ray: Attestation: I have reviewed the pertinent imaging results. Radiologist's impression: Chest 2 views Comparison: Chest x-ray 07/12/2024 Findings/Impression: Cardiovascular and mediastinum: Marked globular cardiomegaly with atherosclerotic calcification. Some increase in heart size compared to the prior examination which may represent congestive failure or pericardial effusion. Lungs and pleural spaces: Trace blunting of the left lateral costophrenic angle consistent with a minimal effusion. No pneumothorax or focal consolidation. Bones and soft tissues: Degenerative disc disease thoracic spine. ECG Data Attestation: I personally reviewed and interpreted this ECG as follows: Discharge Plan Discharge Clinical Impression: Acute UTI, Acute exacerbation of CHF (congestive heart failure), Atrial fibrillation with RVR Patient Disposition: Admitted As Inpatient Condition: Stable
[2024-08-30 10:28] LABS: Lactate* 1.0 mmol/L (0.5-1.9)
[2024-08-30 10:30] LABS: Hematocrit 38.4 % (33.0-51.0); Hemoglobin* 12.5 gm/dL (12.0-16.0); Immature Granulocytes Abs Auto 0.02 K/uL (0.00-0.30); Immature Granulocytes Pct Auto 0.2 %; Lymphocytes Absolute Auto 1.00 K/uL (0.90-2.90); Mean Corpuscular HGB Conc 33 gm/dL (32-36); Mean Corpuscular Hemoglobin 28 pg (26-34); Mean Corpuscular Volume 87 fL (80-100); RDW Coefficient of Variation % 12.6 % (11.5-15.5); Red Blood Count 4.41 m/uL (4.00-5.20); White Blood Count* 10.52 K/uL (4.50-11.00)
[2024-08-30 10:37] LABS: Appearance Urine Clear (Clear)
[2024-08-30 10:45] LABS: Slide Review Reflex No
[2024-08-30 10:47] LABS: Albumin* 3.9 g/dL (3.3-5.0); Chloride* 101 mmol/L (96-114); Potassium* 4.1 mmol/L (3.6-5.1); Sodium* 135 mmol/L (135-149)
[2024-08-30 10:49] LABS: Blood Urea Nitrogen* 17 mg/dL (7-30); Creatinine* 1.0 mg/dL (0.5-1.5); Est. Creatinine Clearance* 38.75; Estimated Glomerular Filt Rate 57 ml/min
[2024-08-30 10:50] LABS: Alanine Aminotransferase* 21 U/L (4-35); Alkaline Phosphatase* 78 U/L (40-150); Anion Gap 9 mEq/L (7-15); Aspartate Amino Transferase* 34 U/L (12-35); Bilirubin Direct* 0.2 mg/dL (0.0-0.5); Bilirubin Total* 1.1 mg/dL (0.1-1.5); Calcium* 8.7 mg/dL (8.4-10.6); Carbon Dioxide* 25 mmol/L (20-32); Glucose* 99 mg/dL (60-115); Total Protein* 7.1 g/dL (6.0-8.3)
[2024-08-30 10:55] LABS: Mono Screen* Negative (Negative)
[2024-08-30 11:03] LABS: NT Pro B Type NatriureticPept* 4660 pg/mL (See Note)
[2024-08-30 11:20] LABS: PCR FLU A Negative PCR FLU A (Negative); PCR FLU B Negative PCR FLU B (Negative); PCR RSV Negative PCR RSV (Negative); SARS PCR* Negative SARS-CoV-2 (Negative)
[2024-08-30] MEDS: PIPERACILLIN/TAZOBACTAM 3.375 GM in 0.9 % SODIUM CHLORIDE Mini-bag 100 ML IVPB (12:20)
[2024-08-30] MEDS: METOPROLOL TARTRATE 1 MG/ML inj 5 MG IVP (12:20)
[2024-08-30] MEDS: ACETAMINOPHEN 325 MG TABLET 650 MG PO ×2 (13:49→20:34)
[2024-08-30] MEDS: cefTRIAXone 1 GM in 0.9 % SODIUM CHLORIDE Mini-bag 100 ML IVPB (13:50)
[2024-08-30] MEDS: FUROSEMIDE 10 MG/ML inj 20 MG IVP (13:50)
[2024-08-30] MEDS: METOPROLOL TARTRATE 1 MG/ML inj 2.5 MG IVP ×2 (13:50→20:35)
--- NOTE | 2024-08-30 14:04 | P.IMHP_ITS ---
Assessment and Plan Assessment and plan (1) Atrial fibrillation with RVR: Problem comment: 1. This is likely driving her worsening orthopnea, paroxysmal nocturnal dyspnea, and dyspnea with exertion. 2. 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 3. Concern that she may have underlying obstructive sleep apnea that has heretofore not been diagnosed and may be driving her atrial fibrillation. 4. IV metoprolol for rate control. Concerned about starting a calcium channel edwin until we repeat the echocardiogram, given the markedly increased size in the cardiac silhouette on chest x-ray and the possibility of decreased ejection fraction verses tamponade. 5. Ordered an echo today. 6. Telemetry. Monitor EKG. 7. Daily weights. Measure input and output. 8. Treat evolving heart failure with diuretics for now and await results of echo to decide on additional adjustment in medications. Status: Acute (2) Acute exacerbation of CHF (congestive heart failure): Problem comment: 1. Most recent echo dated 06/07/2024, LVEF 60-65%, moderately enlarged right ventricle, mild to moderate MR, moderate TR, moderate pulmonary hypertension with estimated pulmonary pressure of 43 mmHg plus right atrial pressure. Based on these findings presumably the patient has diastolic heart failure. 2. Recheck transthoracic echocardiogram given the markedly abnormal cardiac silhouette on chest x-ray. 3. Furosemide 20 mg IV now and monitor output. 4. Continue with metoprolol succinate for now and consider additional medication adjustments based on current TTE. Status: Acute (3) Acute UTI: Problem comment: 1. Urine culture obtained and will await results 2. Ceftriaxone 1 g IV daily until we obtain results of urine culture Status: Acute (4) Tricuspid regurgitation: Problem comment: Moderate tricuspid regurgitation noted by ECHO 06/18 (done for new atrial fibrillation) with mildly to moderately increased pulmonary pressures, 43 mmHg plus right atrial pressure. Status: Acute (5) Mitral regurgitation: Problem comment: Mild to moderate mitral regurgitation seen by ECHO 06/18 (at time of new onset atrial fibrillation) Status: Acute Plan 1. Reviewed impression, plans, recommendations with patient and 2. Answered their questions their satisfaction 3. Consider outpatient sleep study assessment for possible obstructive sleep apnea 4. Patient and are agreeable with above stated plans and recommendations Total Time Spent Total Time Spent: 70 minutes Hospitalist- H&P: HPI History of Present Illness Date Seen: 08/30/24 Chief complaint: shortness of breath and chest pain Narrative: Shari Alas is a 79 year old woman presents to our emergency department today with 4 day history of increased shortness of breath, dry hacky cough, fatigue, loss of appetite. She describes episodes of paroxysmal nocturnal dyspnea, orthopnea, increasing dyspnea with exertion. Denies dyspnea at rest. Denies chest heaviness, pressure, tightness, pain. Denies palpitations or fluttering. Known history of atrial fibrillation, that is asymptomatic. Notice her heart rate bouncing between 100 and 130 over the last 2-3 days. Took extra metoprolol, ordinarily takes metoprolol succinate 25 mg once daily, and even with the extra metoprolol heart rate continue to bounce between 101 130. Denies orthostasis, near-syncope, presyncope, syncope, lightheadedness. With her cough she does get a sense of chest tightness at times. Her temperature at home 2 days ago was 100.1? F. Denies fevers or rigors. Did have dependent edema bilaterally but over the last 4 days as her appetite has decreased and she has had little oral intake she noticed her edema resolved. Denies heartburn or abdominal pain. No blood loss of any sort. Denies diarrhea or constipation. Denies dysuria or urgency. Has had increased urinary frequency. No hematuria. Review of Systems Status of ROS: Reports: 6 or more systems reviewed and unremarkable except as noted in History and below Medical Decision Making Medical Decision Making Has patient completed a Health Care Directive: Yes [facility] Medical History Mitral regurgitation ?I34.0 - Nonrheumatic mitral (valve) insufficiency (ICD-10) Chronic fatigue ?R53.82 - Chronic fatigue, unspecified (ICD-10) Glaucoma of both eyes (06/2018) ?H40.9 - Unspecified glaucoma (ICD-10) Right bundle branch block (~04/2010) ?I45.10 - Unspecified right bundle-branch block (ICD-10) Dyspepsia ?R10.13 - Epigastric pain (ICD-10) Chronic low back pain ?M54.50 - Low back pain, unspecified (ICD-10) ?G89.29 - Other chronic pain (ICD-10) Spondylolisthesis of lumbar region ?M43.16 - Spondylolisthesis, lumbar region (ICD-10) Chronic neck pain ?M54.2 - Cervicalgia (ICD-10) ?G89.29 - Other chronic pain (ICD-10) Greater trochanteric bursitis of right hip ?M70.61 - Trochanteric bursitis, right hip (ICD-10) Tendinitis involving right hip abductors ?M76.891 - Other specified enthesopathies of right lower limb, excluding foot (ICD-10) Partial tear of right hamstring ?S76.311A - Strain of muscle, fascia and tendon of the posterior muscle group at thigh level, right thigh, initial encounter (ICD-10) Tear of right gluteus minimus tendon ?S76.011A - Strain of muscle, fascia and tendon of right hip, initial encounter (ICD-10) Right lumbar radiculopathy ?M54.16 - Radiculopathy, lumbar region (ICD-10) Atrial fibrillation ?I48.91 - Unspecified atrial fibrillation (ICD-10) Tricuspid regurgitation ?I07.1 - Rheumatic tricuspid insufficiency (ICD-10) Atrial fibrillation with RVR ?I48.91 - Unspecified atrial fibrillation (ICD-10) Hypothyroidism ?E03.9 - Hypothyroidism, unspecified (ICD-10) Surgical History History of inguinal hernia repair (1982) ?Z98.890 - Other specified postprocedural states (ICD-10) ?Z87.19 - Personal history of other diseases of the digestive system (ICD-10) History of arthroplasty of finger of right hand (10/23/17) ?Z96.691 - Finger-joint replacement of right hand (ICD-10) Family History Mother Heart problem Arthritis Social History Narrative: Lives with Duglas (POA and medical decision maker if needed), 2 adult children. Retired, no ETOH and nonsmoker. Requests DNR/DNI code status. What is your current living situation?: I presently have a place to live Problems where you live: no known problems Problems where you live details: n/a In the past 12 months, utilities in danger of being shut off: no In past 12 months, lack of transportation kept you from medical appts, meetings, work, or getting things needed for daily living: no In the past 12 mos, have been you worried that your food would run out before you had money to buy more?: never true In the past 12 mos, the food you bought just didn't last and you didn't have money to buy more?: never true Highest level of school completed/degree received: some college, no degree Smoking Status: Never smoker Do you use any of these nicotine containing products: None Second hand tobacco smoke exposure: No How often do you have a drink containing alcohol: never How often do you have six or more drinks on one occasion: Never AUDIT-C Alcohol total score: 0 Non-prescribed substance use: denies use Caffeine: No How often does anyone, including family, friends and others, physically hurt you : never How often does anyone, including family, friends and others, insult or talk down to you: never How often does anyone, including family, friends and others, threaten you with harm: never How often does anyone, including family, friends and others, scream or curse at you: never service: No Meds Home Medications and Allergies Home Medications ?Medication ?Instructions ?Recorded ?Confirmed ?Type acetaminophen 325 mg tablet 325 - 650 mg PO DAILY PRN 09/03/21 08/30/24 History (Tylenol) cetirizine 10 mg tablet 5 mg PO DAILY PRN 09/03/21 0 08/30/24 History latanoprost 0.005 % eye drops 1 drp ophthalmic (eye) Q PM 10/23/22 08/30/24 History levothyroxine 75 mcg tablet 75 mcg PO DAILY #90 tabs 0 10/13/23 08/30/24 Rx apixaban 5 mg tablet 5 mg PO BID #180 tabs 08/30/24 Rx omeprazole 20 mg capsule,delayed 20 mg PO QAM PRN 05/2608/30/24 History release metoprolol succinate 25 mg 50 mg (2 x 25 mg) PO DAILY #90 tabs 08/02/24 08/30/24 Rx tablet,extended release 24 hr Allergies Allergy/AdvReac Type Severity Reaction Status Date / Time cortisone Allergy Intermediate Redness of Uncoded 07/26/24 09:33 Skin seasonal Allergy Mild Congested Uncoded 07/26/24 09:33 Exam Narrative: Exam Narrative: Examined patient hospital emergency department. She is sitting on the exam table with head of bed elevated at 60? and legs outstretched in front of her. Appears comfortable at rest. Hearing and vision are adequate. Alert and oriented x4. Friendly, articulate, cooperative. Cranial nerves 3-12 grossly normal. Midline nasal septum. Dentition in fair repair. No icterus. Conjugate gaze. Midline trachea. Normal thyroid. No head and neck lymphadenopathy. No carotid bruits. Has [place] up the neck and hepatojugular reflux to the angle of the jaw, again with head of bed elevated at 60? and legs outstretched in front of her. Lungs are clear to auscultation with scattered rhonchi. No wheezing or rales. Chest wall excursions are full. No CVA tenderness. Chaotic heart rhythm. Normal S1-S2. No obvious murmur, gallop, rub. PMI not laterally displaced. Abdomen with active bowel sounds, soft, nontender. No organomegaly or masses. Moves all 4 extremities. Independent in transfer, station, gait. Skin is intact. No jaundice, cyanosis, petechiae, or rashes. Const: Vital Signs, click to edit/add: Vital Signs - 24 hr 08/30/24 09:15 08/30/24 10:47 08/30/24 10:48 Temperature 98.2 F Pulse Rate 103 H 107 H Pulse Rate [Right Pulse Oximeter] 117 H Respiratory Rate 18 16 19 Blood Pressure 113/78 Blood Pressure [Ri ght Upper Arm] 121/59 L Pulse Oximetry 97 95 96 Oxygen Delivery Me thod Room Air 08/30/24 11:00 08/30/24 11:02 08/30/24 11:15 Temperature Pulse Rate 102 H 94 106 H Pulse Rate [Right Pulse Oximeter] Respiratory Rate 17 18 15 Blood Pressure 111/59 L Blood Pressure [Ri ght Upper Arm] Pulse Oximetry 95 95 94 Oxygen Delivery Me thod 08/30/24 11:22 08/30/24 11:23 08/30/24 11:30 Temperature Pulse Rate 103 H 113 H 109 H Pulse Rate [Right Pulse Oximeter] Respiratory Rate 20 14 32 H Blood Pressure 115/66 Blood Pressure [Ri ght Upper Arm] Pulse Oximetry 94 94 94 [facility] 11:42 08/30/24 11:45 08/30/24 12:00 Temperature Pulse Rate 125 H 107 H 110 H Pulse Rate [Right Pulse Oximeter] Respiratory Rate 21 21 19 Blood Pressure 113/76 Blood Pressure [Ri ght Upper Arm] Pulse Oximetry 93 96 96 [facility] 08/30/24 12:02 08/30/24 12:03 08/30/24 12:15 Temperature Pulse Rate 118 H 114 H 116 H Pulse Rate [Right Pulse Oximeter] Respiratory Rate 18 16 31 H Blood Pressure 117/69 Blood Pressure [Ri ght Upper Arm] Pulse Oximetry 91 96 96 [facility] 08/30/24 12:22 08/30/24 12:30 Temperature Pulse Rate 120 H 106 H Pulse Rate [Right Pulse Oximeter] Respiratory Rate 29 H 21 Blood Pressure 97/63 Blood Pressure [Ri ght Upper Arm] Pulse Oximetry 96 91 Oxygen Delivery [facility] Hospitalist - H&P: Result Labs Labs: Short CBC 08/30/24 Range/Units 10:20 WBC 10.52 (4.50-11.00) K/uL Hgb 12.5 (12.0-16.0) gm/dL Hct 38.4 (33.0-51.0) % Plt Count 301 (140-440) K/uL BMP 08/30/24 10:20 Sodium 135 Potassium 4.1 Chloride 101 Carbon Dioxide 25 BUN 17 Creatinine 1.0 Glucose 99 Calcium 8.7 Cardiac Enzymes 08/30/24 Range/Units 10:20 Troponin I < 0.01 (0.01-0.04) ng/mL Liver Function 08/30/24 Range/Units 10:20 Total Bilirubin 1.1 (0.1-1.5) mg/dL Direct Bilirubin 0.2 (0.0-0.5) mg/dL AST 34 (12-35) U/L ALT 21 (4-35) U/L Alkaline Phosphatase 78 (40-150) U/L Albumin 3.9 (3.3-5.0) g/dL Urine 08/30/24 Range/Units 10:10 Urine Color Yellow (Yellow) Urine Appearance Clear (Clear) Urine pH 5.5 (5.0-8.5) Ur Specific [place] 1.015 (1.000-1.030) Urine Protein 1+ A (Negative) Urine Glucose (UA) Negative (Negative) ECG ECG interpretation date: 08/30/24 Interpretation: Atrial fibrillation with rapid ventricular response, heart rate 111. Right bundle branch block, old and not new. Imaging Chest x-ray: Attestation: I have reviewed the pertinent imaging results. Radiologist's impression: Compared with prior x-ray of about 2 and half to 3 months ago. Cardiac silhouette now globular was previously was benign appearing. No other obvious acute cardiopulmonary changes.
--- NOTE | 2024-08-30 16:18 | W.PM.CROSSCO ---
Subjective Subjective Interval history: I received a phone call from the tubing assembler who read Shari's ECHO today, Dr. Rolando Saleem. He told me that she has a moderate pericardial effusion with an area of echogenic material, which may be clot within the effusion, and she has a flat IVC which appears she is not in heart failure, but actually dry. He said it did not appear to be in tamponade. We discussed that she got IV metoprolol and lasix after which she became mildly hypotensive. He recommended stopping diuretics, giving a fluid bolus, and that if she remains hypotensive, we transfer her to [facility] for cardiology. He said if she is stable, she could stay here. If she is still SOB or hypotensive tomorrow, she should be transferred. Assessment and Plan Assessment and plan (1) Pericardial effusion: Status: Acute (2) Atrial fibrillation with RVR: Problem comment: 1. This is likely driving her worsening orthopnea, paroxysmal nocturnal dyspnea, and dyspnea with exertion. 2. 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 3. Concern that she may have underlying obstructive sleep apnea that has heretofore not been diagnosed and may be driving her atrial fibrillation. 4. IV metoprolol for rate control. Concerned about starting a calcium channel edwin until we repeat the echocardiogram, given the markedly increased size in the cardiac silhouette on chest x-ray and the possibility of decreased ejection fraction verses tamponade. 5. Ordered an echo today. 6. Telemetry. Monitor EKG. 7. Daily weights. Measure input and output. 8. Treat evolving heart failure with diuretics for now and await results of echo to decide on additional adjustment in medications. Status: Acute (3) Acute exacerbation of CHF (congestive heart failure): Problem comment: 1. Most recent echo dated 06/07/2024, LVEF 60-65%, moderately enlarged right ventricle, mild to moderate MR, moderate TR, moderate pulmonary hypertension with estimated pulmonary pressure of 43 mmHg plus right atrial pressure. Based on these findings presumably the patient has diastolic heart failure. 2. Recheck transthoracic echocardiogram given the markedly abnormal cardiac silhouette on chest x-ray. 3. Furosemide 20 mg IV now and monitor output. 4. Continue with metoprolol succinate for now and consider additional medication adjustments based on current TTE. Status: Acute Plan As above per my conversation with cardiology: will hold IV lasix and give IVF bolus. If she remains hypotensive, will transfer for cardiology.
[2024-08-30] MEDS: 0.9 % SODIUM CHLORIDE 500 ML 500 ML IV (16:20)
[2024-08-30] MEDS: LATANOPROST 0.005% OPHTH 1 DROP EYE-BOTH (18:07)
[2024-08-30] MEDS: LACTATED RINGERS 1000 ML 1,000 ML 500 ML IV (18:07)
--- NOTE | 2024-08-30 19:28 | PC.NURSE ---
End of shift: Patient pleasant and cooperative, A&O. Patient has been hypotensive and tachycardic this shift, MD aware, see orders, pt asymptomatic. All other VSS. Denies pain this shift. Tolerating regular diet. SBA. ?
[2024-08-30] MEDS: SODIUM CHLORIDE 0.9 % (FLUSH) 10 ML SYRINGE 5 ML IVF (20:23)
[2024-08-30] MEDS: APIXABAN 5 MG TABLET PO (20:35)
[2024-08-31] MEDS: METOPROLOL TARTRATE 1 MG/ML inj 2.5 MG IVP ×2 (01:31→06:40)
[2024-08-31 03:20] VITALS: BP 126/71; PULSE 124; RESP 18; TEMP 36.8; O2SAT 94
--- NOTE | 2024-08-31 06:29 | PC.NURSE ---
Picked up at 2300: Pt pleasant, alert and oriented. HR anywhere from 80s to low 110s. Tele reads afib with NVR and BBB. Pt stated some dizziness upon standing, resolved quickly. SOB with exertion and at rest. Pt stated lower back pain, aqua k provided, pt stated improvement. Pt SBA. Pt in bed, appears to be resting, call light within reach.?
[2024-08-31 06:31] LABS: HCO3 VBG 24 mmol/L (21-28); Lactate* 0.8 mmol/L (0.5-1.9); PCO2 VBG 34 mmHG (40-50); PO2 VBG 56.4 mmHG (25-47); pH VBG 7.458 (7.32-7.43)
[2024-08-31 06:37] LABS: Hematocrit 34.9 % (33.0-51.0); Hemoglobin* 11.3 gm/dL (12.0-16.0); Mean Corpuscular HGB Conc 32 gm/dL (32-36); Mean Corpuscular Hemoglobin 28 pg (26-34); Mean Corpuscular Volume 87 fL (80-100); Red Blood Count 4.01 m/uL (4.00-5.20); White Blood Count* 9.30 K/uL (4.50-11.00)
[2024-08-31 06:40] LABS: Slide Review Reflex No
[2024-08-31] MEDS: OMEPRAZOLE 20 MG CAPSULE DR PO (06:40)
[2024-08-31 07:00] VITALS: PULSE 113; PULSE 120; RESP 20; O2SAT 93
[2024-08-31 07:29] LABS: Calcium* 8.5 mg/dL (8.4-10.6); Glucose* 103 mg/dL (60-115)
[2024-08-31 07:30] LABS: Anion Gap 8 mEq/L (7-15); Blood Urea Nitrogen* 14 mg/dL (7-30); Carbon Dioxide* 23 mmol/L (20-32); Chloride* 105 mmol/L (96-114); Creatinine* 0.8 mg/dL (0.5-1.5); Est. Creatinine Clearance* 38.75; Estimated Glomerular Filt Rate 74 ml/min; NT Pro B Type NatriureticPept* 4440 pg/mL (See Note); Potassium* 3.6 mmol/L (3.6-5.1); Sodium* 136 mmol/L (135-149)
[2024-08-31 07:40] VITALS: BP 110/79; PULSE 113; RESP 20; TEMP 36.9; O2SAT 93
[2024-08-31] MEDS: METOPROLOL SUCCINATE (XL) 50 MG TAB PO (09:30)
[2024-08-31] MEDS: ACETAMINOPHEN 325 MG TABLET 650 MG PO (09:30)
[2024-08-31] MEDS: APIXABAN 5 MG TABLET PO (09:30)
[2024-08-31] MEDS: LEVOTHYROXINE 75 MCG TABLET PO (09:30)
[2024-08-31] MEDS: SODIUM CHLORIDE 0.9 % (FLUSH) 10 ML SYRINGE 5 ML IVF (09:30)
[2024-08-31] MEDS: METOPROLOL TARTRATE 1 MG/ML inj 5 MG IVP (09:39)
--- NOTE | 2024-08-31 10:00 | PM.DS1 ---
DS: Providers Provider Date Seen: 08/31/24 Date of admission: 08/30/24 12:44 Primary care physician: Karuna Farfan MD Admitting Clinician: Mao Hilton MD Consults: 08/30/24 13:01 Consult to Nutrition [CONS] Routine Comment: Reason for consult:: Miscellaneous Comment: heart failure Attending Physician on discharge: Jgiar Gandara MD Date of Discharge: 08/31/24 DS: Diagnosis Discharge Diagnosis (1) Atrial fibrillation with RVR: Status: Acute Problem details: 1. This is likely driving her worsening orthopnea, paroxysmal nocturnal dyspnea, and dyspnea with exertion. 2. 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 3. Concern that she may have underlying obstructive sleep apnea that has heretofore not been diagnosed and may be driving her atrial fibrillation. 4. IV metoprolol for rate control. 5. Echocardiogram shows moderate pericardial effusion without tamponade. Small IVC suggesting low CVP. Normal LV with ejection fraction of 60-65%. Normal right ventricular size and function. 6. Telemetry shows ongoing AFib with RVR. Heart rates in the 110s to 130s Patient had failed cardioversion in June. (2) Acute exacerbation of CHF (congestive heart failure): Status: Acute Problem details: 1. Most recent echo dated 06/07/2024, LVEF 60-65%, moderately enlarged right ventricle, mild to moderate MR, moderate TR, moderate pulmonary hypertension with estimated pulmonary pressure of 43 mmHg plus right atrial pressure. Based on these findings presumably the patient has diastolic heart failure. 2. Recheck transthoracic echocardiogram given the markedly abnormal cardiac silhouette on chest x-ray. 3. Furosemide 20 mg IV now and monitor output. 4. Continue with metoprolol succinate for now and consider additional medication adjustments based on current TTE. (3) Pericardial effusion: Status: Acute Problem details: Possibly related to heart failure from AFib with RVR. No obvious tamponade. (4) Acute UTI: Status: Acute Problem details: Patient received ceftriaxone for possible UTI. Culture grew less than 10,000 colonies of Gram-negative rods and greater than 100,000 colonies of mixed Gram-positive daija. No further treatment indicated. (5) Right bundle branch block: Status: Acute Problem details: noted here on 05/04 EKG (6) Hypotension: Status: Acute Problem details: Patient had hypotension yesterday. Treated with a fluid bolus. Blood pressure better today but concern about intolerance of additional rate control medication. DS: Summary Hospital Course Hospital Course: 79-year-old female with atrial fibrillation with RVR for the last few months. Diagnosed in April 2024 incidentally. Has had progressive symptoms of heart failure including exertional dyspnea orthopnea and profound fatigue. Has been on apixaban. Initially on diltiazem for rate control then switched to metoprolol. Has had good rate control in sinus rhythm but recently has likely been in AFib with RVR for most of the last month with worsening heart rate control. With this she has had profound fatigue to the point of being unable to perform ADLs. Has now developed a moderate pericardial effusion as well. Since admission she has been given IV metoprolol for rate control. Also received diuretics for concern of heart failure then given fluids for concern of hypotension. She has never appeared to have volume overload clinically with pulmonary edema or peripheral edema but she does have small pleural effusions and moderate pericardial effusion. She continues with AFib and RVR and no improvement in symptoms. I discussed this with Dr. Kraft of [facility] who recommends transfer for Cardiology and possible electrophysiology evaluation. Status at Discharge Cognitive/behavioral status at discharge: Normal Functional status at discharge: independent ambulation Overall status at discharge: other Time Spent with Patient Time attestation: Total time spent providing and/or coordinating discharge services: 60 minutes Time spent: Greater than 30 minutes Exam Narrative: Exam Narrative: She is alert and appears in no distress at rest. She gives her own history. She is seen with her . No apparent jugular venous distension. Respirations are unlabored and clear except a rare basilar crackle. Cardiovascular: S1, S2, irregular tachycardia. Abdomen: Bowel sounds active. Abdomen is soft without tenderness. Extremities without edema. Good peripheral pulses. Feet are warm to touch. Const: Vital Signs, click to edit/add: Vital Signs - 24 hr 08/30/24 10:47 08/30/24 10:48 08/30/24 11:00 Temperature Pulse Rate 103 H 107 H 102 H Pulse Rate [Pulse Oximeter] Respiratory Rate 16 19 17 Blood Pressure 113/78 Blood Pressure [Le ft Arm] Pulse Oximetry 95 96 95 Oxygen Delivery Me thod 08/30/24 11:02 08/30/24 11:15 08/30/24 11:22 Temperature Pulse Rate 94 106 H 103 H Pulse Rate [Pulse Oximeter] Respiratory Rate 18 15 20 Blood Pressure 111/59 L 115/66 Blood Pressure [Le ft Arm] Pulse Oximetry 95 94 94 Oxygen Delivery Me od 08/30/24 11:23 08/30/24 11:30 08/30/24 11:42 Temperature Pulse Rate 113 H 109 H 125 H Pulse Rate [Pulse Oximeter] Respiratory Rate 14 32 H 21 Blood Pressure 113/76 Blood Pressure [Le ft Arm] Pulse Oximetry 94 94 93 Oxygen Delivery Me od 08/30/24 11:45 08/30/24 12:00 08/30/24 12:02 Temperature Pulse Rate 107 H 110 H 118 H Pulse Rate [Pulse Oximeter] Respiratory Rate 21 19 18 Blood Pressure 117/69 Blood Pressure [Le ft Arm] Pulse Oximetry 96 96 91 Oxygen Delivery Me od 08/30/24 12:03 08/30/24 12:15 08/30/24 12:22 Temperature Pulse Rate 114 H 116 H 120 H Pulse Rate [Pulse Oximeter] Respiratory Rate 16 31 H 29 H Blood Pressure 97/63 Blood Pressure [Le ft Arm] Pulse Oximetry 96 96 [facility] 12:30 08/30/24 12:56 08/30/24 12:56 Temperature 98.4 F Pulse Rate 106 H Pulse Rate [Pulse Oximeter] 108 H Respiratory Rate 21 22 22 Blood Pressure Blood Pressure [Le ft Arm] 123/83 Pulse Oximetry 91 96 96 Oxygen Delivery Me od Room Air Room Air 08/30/24 15:00 08/30/24 15:00 08/30/24 15:25 Temperature 98.1 F Pulse Rate 97 Pulse Rate [Pulse Oximeter] 113 H Respiratory Rate 20 20 Blood Pressure Blood Pressure [Le ft Arm] 98/42 L Pulse Oximetry 96 96 Oxygen Delivery Me od Room Air Room Air 08/30/24 15:30 08/30/24 19:27 08/30/24 23:00 Temperature 98.6 F Pulse Rate 97 Pulse Rate [Pulse Oximeter] 113 H 97 Respiratory Rate 20 20 Blood Pressure Blood Pressure [Le ft Arm] 110/60 Pulse Oximetry Oxygen Delivery Me od 08/30/24 23:00 08/30/24 23:00 08/30/24 23:42 Temperature 97.7 F Pulse Rate Pulse Rate [Pulse Oximeter] 99 99 Respiratory Rate 20 20 Blood Pressure Blood Pressure [Le ft Arm] 103/79 Pulse Oximetry 91 94 Oxygen Delivery Me thod Room Air Room Air 08/31/24 03:20 08/31/24 07:00 08/31/24 07:00 Temperature 98.2 F Pulse Rate Pulse Rate [Pulse Oximeter] 124 H 113 H Respiratory Rate 18 20 20 Blood Pressure Blood Pressure [Le ft Arm] 126/71 Pulse Oximetry 94 93 Oxygen Delivery Me thod Room Air Room Air 08/31/24 07:00 08/31/24 07:40 Temperature 98.4 F Pulse Rate 120 H Pulse Rate [Pulse Oximeter] 113 H Respiratory Rate 20 Blood Pressure Blood Pressure [Le ft Arm] 110/79 Pulse Oximetry 93 Oxygen Delivery Me thod Room Air Documenting provider has reviewed patient's vital signs: yes DS: Data Data Completed and Pending Completed studies during hospitalization: Procedures Introduction of Other Gas into Respiratory Tract, Via Natural or Artificial Opening (07/13/24) Anabaptist of Cardiac Rhythm, Single (07/13/24) Labs on day of discharge: Labs from last 24 hours 08/31/24 08/30/24 08/30/24 05:54 13:13 10:20 WBC 9.30 10.52 RBC 4.01 4.41 Hgb 11.3 L 12.5 Hct 34.9 38.4 MCV 87 87 MCH 28 28 MCHC 32 33 RDW Coeff of Dominique 12.6 Plt Count 297 301 Neut % (Auto) 81.1 H Lymph % (Auto) 9.5 L [place] % (Auto) 8.8 Eos % (Auto) 0.3 Baso % (Auto) 0.1 Neut # (Auto) 8.50 H Lymph # (Auto) 1.00 [place] # (Auto) 0.90 Eos # (Auto) 0.03 Baso # (Auto) 0.01 Abs Immat Gran (auto) 0.02 Imm/Tot Granulo (auto) 0.2 VBG pH 7.458 H VBG pCO2 34 L VBG pO2 56.4 H VBG HCO3 24 Sodium 136 135 Potassium 3.6 4.1 Chloride 105 101 Carbon Dioxide 23 25 Anion Gap 8 9 BUN 14 17 Creatinine 0.8 1.0 Estimated Creat Clear 38.75 38.75 Estimated GFR 74 57 Glucose 103 99 Lactate 0.8 1.0 Calcium 8.5 8.7 Phosphorus 3.4 Magnesium 1.9 2.0 Total Bilirubin 1.1 Direct Bilirubin 0.2 AST 34 ALT 21 Alkaline Phosphatase 78 Troponin I < 0.01 < 0.01 C-Reactive Protein 18.2 H 16.9 H NT-Pro-B Natriuret Pep 4440 H 4660 H Total Protein 7.1 Albumin 3.9 TSH 2.450 Urine Color Urine Appearance Urine pH Ur Specific [place] Urine Protein Urine Glucose (UA) Urine Ketones Urine Blood Urine Nitrite Urine Bilirubin Urine Urobilinogen Ur Leukocyte Esterase Urine RBC Urine WBC Ur Squamous Epith Cells Urine Bacteria Urine Yeast SARS-CoV-2 (PCR) Negative SARS-CoV-2 Monoscreen Negative Influenza Type A (PCR) Negative PCR FLU A Influenza Type B (PCR) Negative PCR FLU B RSV (PCR) Negative PCR RSV Lab Acknowledgement TEST ADDED 08/30/24 10:10 WBC RBC Hgb Hct MCV MCH MCHC RDW Coeff of Dominique Plt Count Neut % (Auto) Lymph % (Auto) [place] % (Auto) Eos % (Auto) Baso % (Auto) Neut # (Auto) Lymph # (Auto) [place] # (Auto) Eos # (Auto) Baso # (Auto) Abs Immat Gran (auto) Imm/Tot Granulo (auto) VBG pH VBG pCO2 VBG pO2 VBG HCO3 Sodium Potassium Chloride Carbon Dioxide Anion Gap BUN Creatinine Estimated Creat Clear Estimated GFR Glucose Lactate Calcium Phosphorus Magnesium Total Bilirubin Direct Bilirubin AST ALT Alkaline Phosphatase Troponin I C-Reactive Protein NT-Pro-B Natriuret Pep Total Protein Albumin TSH Urine Color Yellow Urine Appearance Clear Urine pH 5.5 Ur Specific [place] 1.015 Urine Protein 1+ A Urine Glucose (UA) Negative Urine Ketones 1+ A Urine Blood 3+ A Urine Nitrite Negative Urine Bilirubin 1+ A Urine Urobilinogen 1.0 Ur Leukocyte Esterase 1+ A Urine RBC 2-5 A Urine WBC 10-25 A Ur Squamous Epith Cells Moderate A Urine Bacteria Moderate A Urine Yeast Moderate A SARS-CoV-2 (PCR) Monoscreen Influenza Type A (PCR) Influenza Type B (PCR) RSV (PCR) Lab Acknowledgement Preliminary micro results at discharge 08/30/24 10:10 Urine Culture - Preliminary Urine,Clean Catch Imaging Chest x-ray: Radiologist's impression: Indication: Shortness of breath, chest pain and cough Technique: Chest 2 views Comparison: Chest x-ray 07/12/2024 Findings/Impression: Cardiovascular and mediastinum: Marked globular cardiomegaly with atherosclerotic calcification. Some increase in heart size compared to the prior examination which may represent congestive failure or pericardial effusion. Lungs and pleural spaces: Trace blunting of the left lateral costophrenic angle consistent with a minimal effusion. No pneumothorax or focal consolidation. Bones and soft tissues: Degenerative disc disease thoracic spine. Echo: Radiologist's impression: Final Impressions: Limited Echocardiogram performed 1. Moderate pericardial effusion with no echo evidence of tamponade w/ small IVC suggesting low CVP. Echogenic material adjacent to the RV. New from prior study. D/w ordering providers partner, if hypotensive despite IV fluids will transfer to [facility]. 2. Normal LV size, normal wall thickness, normal function with an estimated EF of 60 - 65%. 3. Right ventricular cavity size is normal, global systolic RV function is normal. 4. The tricuspid valve is normal, mild-moderate tricuspid regurgitation. Discharge Plan Discharge Disposition: [facility] Discharge Location: [facility] Date of Admission: 08/30/24 12:44 Primary Care Provider: Karuna Farfan Condition: Stable Discharge Orders: Transfer of Care to Other Hospital (ORDER); Ordered 08/31/24 Ordered By: Amol Gandara
--- NOTE | 2024-08-31 10:06 | NUTR.NU ---
Nutrition screen initiated r/t MD consult for Heart Failure and nursing referral related to eating poorly. 79 y/o patient. Height 5'4, weight 159.2 lbs, BMI 27.1. 07/12/24 chart weight 161 lbs. Admit with acute UTI, AF with RVR. Diet Heart Healthy. 08/30/24 Intake 100% at lunch and 75% at supper. 08/31/24 MD reported 08/30/24 echo moderate pericardial effusion with possible clot, no heart failure. Monitor for possible transfer to [facility]. No new note since. Continue to monitor and follow up with diet education if appropriate.
--- NOTE | 2024-08-31 11:50 | PC.NURSE ---
Discharge: Patient pleasant and cooperative, A&O. Pt in a-fib w/ rvr this shift. Patient reported feeling SOB w/ exertion. Transfered to higher level of care at 1130.
== END 2024-08-31 11:30 | disposition short-term general hospital (02) | DRG 314 ==
LOC: ED 12:02 → MEDSURG 12:43
PROVIDERS: Admitting Provider Internal Medicine; Emergency Provider Family Medicine; PCP Internal Medicine; Visit Provider Internal Medicine
DX: I30.9 Acute pericarditis, unspecified (principal); I50.33 Acute on chronic diastolic (congestive) heart failure; N39.0 Urinary tract infection, site not specified; I43 Cardiomyopathy in diseases classified elsewhere; I48.91 Unspecified atrial fibrillation; Z79.01 Long term (current) use of anticoagulants; I95.9 Hypotension, unspecified; I27.20 Pulmonary hypertension, unspecified; I08.1 Rheumatic disorders of both mitral and tricuspid valves; I45.10 Unspecified right bundle-branch block; I11.0 Hypertensive heart disease with heart failure; E03.9 Hypothyroidism, unspecified
CPT/HCPCS: 36415; 71046; 80048; 80076; 81001; 82803; 83605; 83735; 83880; 84100; 84443; 84484; 85025; 85027; 86140; 86308; 87086; 87631; 93005; 93308; 93321; 93325; 94761; 99284; 99285; A9270; J0696; J1938; J2543; J7030; J7120

== ENCOUNTER 2024-08-31 11:28 | Outpatient (CLI) | payer MEDICARE, BC, SELFPAY | END 2024-08-31 11:29 | disposition home or self-care (01) | LOC: AMB 09-02 13:07 | PROVIDERS: PCP Internal Medicine; Visit Provider Student in an Organized Health Care Education/Training Program | DX: I48.91 Unspecified atrial fibrillation (principal); I31.39 Other pericardial effusion (noninflammatory); I34.0 Nonrheumatic mitral (valve) insufficiency | CPT/HCPCS: A0425; A0427 ==